=== PATIENT | female | born 1930 | race Hispanic/Latino ===

== ENCOUNTER 2017-02-21 19:10 | Inpatient (IN) | payer MEDICARE ==
[2017-02-21] MEDS ORDERED: DUONEB *Not for PRN Use IH ONE (20:31)
[2017-02-21] MEDS ORDERED: TESSALON PERLES PO ONE (20:31)
--- NOTE | 2017-02-21 20:37 | Emergency Department Report ---
HPI - General Chief Complaint: Upper Respiratory Infection Time Seen by Provider: 02/21/17 20:17 - HPI HPI: This is a 87-year-old female who presents to the emergency department via EMS from home with complaint of a cough and some hemoptysis. The patient says that she had a history of a productive cough last week that resolved on its own. However starting yesterday she began having a productive cough as well and today she says she coughed up a blood clot. She says she is unable to stop coughing. She denies any chest pain, nausea, vomiting or fever. She has not taken anything for her symptoms prior to presentation. Her primary care doctor is Dr. Wild and she has not seen him regarding her symptoms. She has a past medical history of congestive heart failure, hypertension, coronary artery disease, chronic kidney disease, hyperlipidemia, anemia. She does not take any blood thinners but is on Plavix. She is a former smoker having quit about 25 years ago. No recent travel or sick contacts at home. She currently lives in a snf home. ED Past Medical Hx - Past Medical History Previous Medical History?: Yes Hx Hypertension: Yes Hx Congestive Heart Failure: Yes Hx Renal Disease: Yes Additional medical history: Idiopathic Osteoporosis, Abdominal Aortic aneurysm, Anxity, CAD, Gouty arthropathy, acid reflux, cardiac murmur - Social History Smoking Status: Never Smoker - Medications Home Medications: Home Medications Medication Instructions Recorded Confirmed Last Taken Type Alendronate Sodium 35 mg PO 7XD 02/22/17 02/22/17 02/21/17 History Allopurinol [Zyloprim] 300 mg PO QDAY 02/22/17 02/22/17 02/21/17 History Carvedilol [Coreg] 6.25 mg PO BID 02/22/17 02/22/17 02/21/17 History Clopidogrel Bisulfate [Plavix] 75 mg PO DAILY 02/22/17 02/22/17 02/21/17 History Cyanocobalamin [Vitamin B-12] 1,000 mcg IM QMONTH 02/22/17 02/22/17 02/21/17 History Ferrous Gluconate [Fergon 240 MG 240 mg PO BID 02/22/17 02/22/17 02/21/17 History tab] Furosemide [Lasix] 20 mg PO QDAY 02/22/17 02/22/17 02/21/17 History Ipratropium/Albuterol Sulfate 20 - 100 mcg IH QID 02/22/17 02/22/17 02/21/17 History [Combivent Respimat Inhal [place]] Ipratropium/Albuterol Sulfate 20 - 100 mcg IH QID 02/22/17 02/22/17 02/21/17 History [Combivent Respimat] Lovastatin [Altoprev] 20 mg PO QPM 02/22/17 02/22/17 02/21/17 History Pantoprazole Sodium 40 mg PO PRN 02/22/17 02/22/17 02/21/17 History Polyethylene Glycol 600 300 tab PO DAILY 02/22/17 02/22/17 02/21/17 History ED Review of Systems ROS: Stated complaint: CHEST CONGESTION Other details as noted in HPI Comment: All other systems reviewed and negative Constitutional: denies: chills, fever Eyes: denies: eye pain, eye discharge, vision change ENT: denies: ear pain, throat pain Respiratory: cough, shortness of breath, other (hemoptysis) Cardiovascular: denies: palpitations, edema Gastrointestinal: denies: abdominal pain, nausea, diarrhea Genitourinary: denies: urgency, dysuria, discharge Musculoskeletal: denies: back pain, joint swelling, arthralgia Skin: denies: rash, lesions Neurological: denies: headache, weakness, paresthesias Physical Exam - Physical Exam Vital Signs: Vital Signs 02/21/17 02/21/17 19:56 20:06 Temperature 97.4 F L Pulse Rate 73 Respiratory 18 18 Rate Blood Pressure 175/83 [Left] O2 Sat by Pulse 98 98 Oximetry Physical Exam: GENERAL: The patient is well-developed well-nourished. HEENT: Normocephalic. Atraumatic. Extraocular motions are intact. Patient has moist mucous membranes. Pupils equal reactive to light bilaterally. NECK: Supple. Trachea is midline. CHEST/LUNGS: Coarse breath sounds throughout the chest that is worse on the right. There is a productive sounding cough that is wet and can be heard coming out of her mouth. There is tachypnea but no accessory muscle use. There is no respiratory distress noted. HEART/CARDIOVASCULAR: Regular. There is no tachycardia. There is no gallop rub or murmur. ABDOMEN: Abdomen is soft, nontender. Patient has normal bowel sounds. There is no abdominal distention. SKIN: Skin is warm and dry. NEURO: The patient is awake, alert. The patient is cooperative. The patient has no focal neurologic deficits. The patient has normal speech. MUSCULOSKELETAL: There is no tenderness or deformity. There is no limitation range of motion. There is no evidence of acute injury. ED Course Vital Signs 02/21/17 02/21/17 19:56 20:06 Temperature 97.4 F L Pulse Rate 73 Respiratory 18 18 Rate Blood Pressure 175/83 [Left] O2 Sat by Pulse 98 98 Oximetry ED Medical Decision Making - Lab Data Result diagrams: 02/21/17 20:44 02/21/17 20:44 - EKG Data -: EKG Interpreted by Me EKG shows normal: sinus rhythm, axis, intervals (left axis deviation), QRS complexes (Q waves to the septal leads), ST-T waves (nonspecific ST-T waves) Rate: normal - EKG Data When compared to previous EKG there are: previous EKG unavailable Interpretation: other (sinus rhythm, left axis deviation, Q waves to the septal leads) - Radiology Data Radiology results: report reviewed, image reviewed interpreted by me: Chest x-ray shows a moderate right-sided pleural effusion. No obvious pneumonia or pneumothorax. PROCEDURE: CT CHEST WO CON TECHNIQUE: Computerized axial tomography of the chest was performed without contrast material. This study is performed without intravenous contrast and the sensitivity for pathology, including neoplasms, adenopathy, abscess, pulmonary embolism and aortic dissection, is reduced. HISTORY: SOB COMPARISON: No prior studies are available for comparison. TECHNICAL QUALITY: Satisfactory. FINDINGS: Moderate right pleural effusion is seen with small left pleural effusion. Probable compressive atelectasis is seen in the right lower lung. Central obstructing lesion cannot be excluded on this unenhanced exam. There are multiple small nodules seen in the left and right. These are probable metastases. A small nodules only measure up to 7 millimeters in size. Malignant lymphadenopathy is seen with multiple increased lymph nodes seen. In the right paratracheal region there is a 2.2 x 1.5 cm lymph node which may be the largest. Tiny pericardial effusion is seen. Heart and thoracic aorta are normal in size. Probable vascular calcifications are seen in the kidneys. There is abnormal retroperitoneal density seen near the region of the portal confluence. An infiltrating malignancy in this area is likely and involvement of the portal venous system may be present. Malignant appearing lymphadenopathy is suspected in the retroperitoneum. There may be a small mass in the left hepatic lobe measuring 1 cm. Mid to distal abdominal aorta is dilated up to 3.4 cm in diameter. Possible mild changes of avascular necrosis are seen in the right humeral head. There is sclerosis of the T3 vertebral body which is worrisome for possible metastatic disease. IMPRESSION: Moderate right pleural effusion is seen with associated atelectasis. Central obstructing malignancy may be present. Multiple small nodules are seen in both lungs that are suspicious for metastatic disease. Malignant appearing lymphadenopathy is seen in the mediastinum. Malignant appearing lymphadenopathy and possible mass are seen in the retroperitoneum and mary hepatitis region. These areas are not well evaluated on this unenhanced study and should be further evaluated with contrast-enhanced CT or MRI. Invasion of the portal venous system is not excluded. There may be a small mass in the left hepatic lobe. Possible sclerotic metastasis is seen within the T3 vertebral body. Correlation with nuclear medicine bone scan is recommended. Ventilation/perfusion scan is a low probability for a pulmonary embolism. - Medical Decision Making 87-year-old female presents with some productive cough. Chest x-ray shows a moderate sized right-sided pleural effusion. Labs show a elevated d-dimer so a VQ scan was done secondary to some renal insufficiency and it was low probability for pulmonary embolism. However a CT of the chest without contrast was done that showed a significant amount of lymphadenopathy, a moderate right sized pleural effusion and some lesions in the liver that are all concerning for a malignant and/or cancerous process. Patient will be admitted to the hospital for further evaluation and treatment has been accepted for admission by the hospitalist, Dr. Diaz. - Differential Diagnosis malignancy, pneumonia, CHF, [place] Critical Care Time: No Critical care attestation.: If time is entered above; I have spent that time in minutes in the direct care of this critically ill patient, excluding procedure time. ED Disposition Clinical Impression: Pleural effusion, right, Lymphadenopathy, thoracic, Pulmonary nodules Dyspnea Qualifiers: Dyspnea type: shortness of breath Qualified Code(s): R06.02 - Shortness of breath Disposition: OP ADMIT IP TO THIS HOSP Is pt being admited?: Yes Condition: Stable Referrals: PRIMARY CARE, [Primary Care Provider] - 3-5 Days Time of Disposition: 02:32
[2017-02-21 21:05] LABS: Hematocrit 26.8 % (30.3-42.9); Hemoglobin 8.9 gm/dl (10.1-14.3); Mean Corpuscular HGB Conc 33 % (30-34); Mean Corpuscular Hemoglobin 33 pg (28-32); Mean Corpuscular Volume 99 fl (79-97); Platelet Count 191 K/mm3 (140-440); Red Blood Count 2.71 M/mm3 (3.65-5.03); Red Cell Distribution Width 17.7 % (13.2-15.2); White Blood Count 8.9 K/mm3 (4.5-11.0)
[2017-02-21 21:14] LABS: INR 1.03 (0.87-1.13)
[2017-02-21 21:15] LABS: BUN/Creatinine Ratio 13.07; Calcium 9.2 mg/dL (8.4-10.2); Chloride 100.7 mmol/L (98-107); Partial Thromboplastin Time 30.9 Sec. (24.2-36.6); Potassium 4.3 mmol/L (3.6-5.0)
[2017-02-21 22:18] LABS: Basophils % (Manual) 0 % (0.0-1.8); Blastocytes % (Manual) 0 %
[2017-02-21 22:19] LABS: Anisocytosis 1+; Diff Status Complete; Elliptocytes 1+; Platelet Estimate Consistent w Auto
--- NOTE | 2017-02-21 23:00 | Cat Scan Report ---
FINAL REPORT PROCEDURE: CT CHEST WO CON TECHNIQUE: Computerized axial tomography of the chest was performed without contrast material. This study is performed without intravenous contrast and the sensitivity for pathology, including neoplasms, adenopathy, abscess, pulmonary embolism and aortic dissection, is reduced. HISTORY: SOB COMPARISON: No prior studies are available for comparison. TECHNICAL QUALITY: Satisfactory. FINDINGS: Moderate right pleural effusion is seen with small left pleural effusion. Probable compressive atelectasis is seen in the right lower lung. Central obstructing lesion cannot be excluded on this unenhanced exam. There are multiple small nodules seen in the left and right. These are probable metastases. A small nodules only measure up to 7 millimeters in size. Malignant lymphadenopathy is seen with multiple increased lymph nodes seen. In the right paratracheal region there is a 2.2 x 1.5 cm lymph node which may be the largest. Tiny pericardial effusion is seen. Heart and thoracic aorta are normal in size. Probable vascular calcifications are seen in the kidneys. There is abnormal retroperitoneal density seen near the region of the portal confluence. An infiltrating malignancy in this area is likely and involvement of the portal venous system may be present. Malignant appearing lymphadenopathy is suspected in the retroperitoneum. There may be a small mass in the left hepatic lobe measuring 1 cm. Mid to distal abdominal aorta is dilated up to 3.4 cm in diameter. Possible mild changes of avascular necrosis are seen in the right humeral head. There is sclerosis of the T3 vertebral body which is worrisome for possible metastatic disease. IMPRESSION: Moderate right pleural effusion is seen with associated atelectasis. Central obstructing malignancy may be present. Multiple small nodules are seen in both lungs that are suspicious for metastatic disease. Malignant appearing lymphadenopathy is seen in the mediastinum. Malignant appearing lymphadenopathy and possible mass are seen in the retroperitoneum and mary hepatitis region. These areas are not well evaluated on this unenhanced study and should be further evaluated with contrast-enhanced CT or MRI. Invasion of the portal venous system is not excluded. There may be a small mass in the left hepatic lobe. Possible sclerotic metastasis is seen within the T3 vertebral body. Correlation with nuclear medicine bone scan is recommended.
--- NOTE | 2017-02-22 00:48 | Nuclear Medicine Report ---
FINAL REPORT PROCEDURE: NM LUNG SCAN PERF/VENT TECHNIQUE: 5.8 mCi Tc-99m MAA was injected IV for pulmonary perfusion imaging in multiple projections. Seventeen mCi Xenon 133 gas was inhaled for pulmonary ventilation imaging in multiple projections. Injection site: RIGHT antecubital fossa. CPT 21250 HISTORY: SOB, elevated dimer COMPARISON: Chest CT 02/21/2017 FINDINGS: Perfusion: There is diminished perfusion in the inferior right lung. This does correspond to an area of atelectasis and effusion in the right lung. Mild diminished activity in the posterior left lung. Findings consistent with the findings on the chest imaging.. Ventilation: Slightly diminished ventilation to the right lung.. The findings are matched and correlate to the patient's chest imaging. IMPRESSION: Low probability of pulmonary embolus.
[2017-02-22] MEDS ORDERED: ZOFRAN IV PRN (02:46)
[2017-02-22] MEDS ORDERED: DULCOLAX PR PRN (02:46)
--- NOTE | 2017-02-22 02:50 | History and Physical Report ---
History of Present Illness Date of examination: 02/22/17 History of present illness: 87-year-old woman with multiple medical problems including hypertension, CHF, chronic kidney disease, osteoporosis, coronary artery disease, gout, GERD, hyperlipidemia, history of breast cancer comes emergency room today with complaints of shortness of breath 1 week. Also complaining of orthopnea. Patient states that she coughed up blood and sputum 2 Review Of Systems: Constitutional: no fever, chills, weight loss Ears, eyes, nose, mouth and throat: no nasal congestion, no nasal discharge, no sinus pressure, blurry vision, diplopia Neck: No neck pain or rigidity. Cardiovascular: chest pain, palpitations Respiratory: No wheezing Gastrointestinal: abdominal pain, hematochezia Genitourinary : no dysuria, frequency , hematuria Musculoskeletal: no joint swelling or muscle ache Integumentary: no rash, no pruritis Neurological: no parathesias, focal weakness Endocrine: no cold or heat intolerance, no polyuria or polydipsia Hematologic/Lymphatic: no easy bruising, no easy bleeding, no gland swelling Allergic/Immunologic: no urticaria, no angioedema. PAST MEDICAL HISTORY: hypertension, CHF, chronic kidney disease, osteoporosis, coronary artery disease, gout, GERD, hyperlipidemia, history of breast cancer PAST SURGICAL HISTORY: Lumpectomy, tonsillectomy FAMILY HISTORY: Hypertension SOCIAL HISTORY: Quit alcohol, tobacco years ago, no drug Medications and Allergies Allergies Allergy/AdvReac Type Severity Reaction Status Date / Time No Known Allergies Allergy Verified 02/22/17 02:57 Home Medications Medication Instructions Recorded Confirmed Last Taken Type Alendronate Sodium 35 mg PO 7XD 02/22/17 02/22/17 02/21/17 History Allopurinol [Zyloprim] 300 mg PO QDAY 02/22/17 02/22/17 02/21/17 History Carvedilol [Coreg] 6.25 mg PO BID 02/22/17 02/22/17 02/21/17 History Clopidogrel Bisulfate [Plavix] 75 mg PO DAILY 02/22/17 02/22/17 02/21/17 History Cyanocobalamin [Vitamin B-12] 1,000 mcg IM QMONTH 02/22/17 02/22/17 02/21/17 History Ferrous Gluconate [Fergon 240 MG 240 mg PO BID 02/22/17 02/22/17 02/21/17 History tab] Furosemide [Lasix] 20 mg PO QDAY 02/22/17 02/22/17 02/21/17 History Ipratropium/Albuterol Sulfate 20 - 100 mcg IH QID 02/22/17 02/22/17 02/21/17 History [Combivent Respimat Inhal [place]] Ipratropium/Albuterol Sulfate 20 - 100 mcg IH QID 02/22/17 02/22/17 02/21/17 History [Combivent Respimat] Lovastatin [Altoprev] 20 mg PO QPM 02/22/17 02/22/17 02/21/17 History Pantoprazole Sodium 40 mg PO PRN 02/22/17 02/22/17 02/21/17 History Polyethylene Glycol 600 300 tab PO DAILY 02/22/17 02/22/17 02/21/17 History Active Meds: Active Medications Acetaminophen (Tylenol) 650 mg PO Q4H PRN PRN Reason: Pain MILD(1-3)/Fever >100.5/HOYOS Bisacodyl (Dulcolax) 10 mg MD QDAY PRN PRN Reason: Constipation unrelieved by MOM Magnesium Hydroxide (Milk Of Magnesia) 30 ml PO Q4H PRN PRN Reason: Constipation Ondansetron HCl (Zofran) 4 mg IV Q8H PRN PRN Reason: N/V unrelieved by Reglan Exam - Physical Exam Narrative exam: Gen. appearance: Patient lying in bed, no apparent distress HEENT: Normocephalic, atraumatic, pupils equally round and reactive to light, extraocular movement intact, and no sclericterus,. No JVD or thyromegaly or nodule,neck supple, no carotid bruit ,mucous membranes moist, no exudate or erythema Heart: S1, S2, regular rate and rhythm Lungs: Decreased breath sound on the right, breathing comfortable Abdomen: Positive bowel sounds, nontender, nondistended, no organomegaly Extremity: No edema, cyanosis, clubbing Skin: No rash, nodules, warm, dry Neuro: Oriented 3, cranial nerves II-12 intact, speech is fluent, motor and sensory intact - Constitutional Vitals: Temp Pulse Resp BP Pulse Ox 97.4 F L 76 12 148/65 98 02/21/17 19:56 02/22/17 00:38 02/22/17 00:38 02/22/17 00:38 02/22/17 00:38 Results - Labs CBC & Chem 7: 02/23/17 06:33 02/23/17 06:33 Labs: Abnormal lab results 02/21/17 02/21/17 02/21/17 Range/Units 20:44 20:44 20:44 RBC 2.71 L (3.65-5.03) M/mm3 Hgb 8.9 L (10.1-14.3) gm/dl Hct 26.8 L (30.3-42.9) % MCV 99 H (79-97) fl MCH 33 H (28-32) pg RDW 17.7 H (13.2-15.2) % Lymphocytes % (Manual) 9.0 L (13.4-35.0) % Nucleated RBC % 1.0 H (0.0-0.9) % Lymphocytes # (Manual) 0.8 L (1.2-5.4) K/mm3 D-Dimer (0-234) ng/mlDDU Sodium 136 L (137-145) mmol/L Creatinine 1.3 H (0.7-1.2) mg/dL NT-Pro-B Natriuret Pep 3727 H (0-900) pg/mL 02/21/17 Range/Units 20:44 RBC (3.65-5.03) M/mm3 Hgb (10.1-14.3) gm/dl Hct (30.3-42.9) % MCV (79-97) fl MCH (28-32) pg RDW (13.2-15.2) % Lymphocytes % (Manual) (13.4-35.0) % Nucleated RBC % (0.0-0.9) % Lymphocytes # (Manual) (1.2-5.4) K/mm3 D-Dimer 1308.61 H (0-234) ng/mlDDU Sodium (137-145) mmol/L Creatinine (0.7-1.2) mg/dL NT-Pro-B Natriuret Pep (0-900) pg/mL - Imaging and Cardiology EKG: image reviewed Chest x-ray: image reviewed CT scan - chest: report reviewed Assessment and Plan V/Q negative for pulmonary emboli Assessment Large right pleural effusion, most likely malignant Hypertension CHF, stable Chronic kidney disease Coronary artery disease ,GERD Hyperlipidemia History of breast cancer Plan Admit to medicine Consult pulmonary, continue Lasix continue appropriate outpatient medication, start DVT prophylaxis
[2017-02-22] MEDS ORDERED: PROTONIX PO SCH (03:00)
[2017-02-22 03:52] LABS: Creatine Kinase MB 1.4 ng/mL (0.0-4.0)
[2017-02-22 03:53] LABS: Creatine Kinase 20 units/L (30-135)
--- NOTE | 2017-02-22 04:16 | Cat Scan Report ---
FINAL REPORT PROCEDURE: CT ABDOMEN PELVIS WO CON TECHNIQUE: Computerized axial tomography of the abdomen and pelvis was performed without intravenous contrast. This study is performed without intravascular contrast material and its sensitivity for abdominal and pelvic pathology, including neoplasms, inflammation, abscess, free fluid, thrombosis, arterial dissection and infarction, is reduced compared with a contrast enhanced study. HISTORY: prev chest ct lymphadenopathy and poss mass in mary hepatitis r COMPARISON: No prior studies are available for comparison. FINDINGS: Liver: The size of the liver is normal. There is dilatation of the central biliary ductal system. Prominence of lymph nodes in the mary hepatis is noted. There are few areas of hypoattenuation in the right and left lobe of the liver, these measure less than 1 centimeter. Small cysts are possible. Metastatic change is also within the differential.. Spleen: Normal size and attenuation. Gallbladder and biliary system: The gallbladder is distended. No stones are identified.. Pancreas: Pancreas size and attenuation is normal. Adrenals: Both adrenal glands have a normal appearance. Kidneys: There bilateral global thinning of the renal cortex. No hydronephrosis is seen. No renal stones or masses.. GI tract: The stomach is normal. The small bowel has a normal appearance. The colon is normal. The appendix region is normal.. Lymph nodes and mesentery: There are multiple scattered lymph nodes identified throughout the abdomen extending of the pelvis. Minimal fluid identified in the upper abdomen.. Vasculature: Moderate atherosclerosis of the aorta and all branching vessels. There is slight infrarenal aortic aneurysm measuring up to 3.2 centimeters.. Bladder: Normal. Reproductive organs: Normal. Peritoneum: Minimal ascites is identified.. Musculoskeletal structures: Moderate degenerative changes of the lumbar spine.. Other: There is a diffuse soft tissue anasarca.. IMPRESSION: There is some dilatation of the central biliary ductal system within the liver. There are a few prominent lymph nodes are noted in the upper abdomen. Mild ascites is seen. There are scattered lymph nodes identified throughout the abdomen and pelvis. Underlying malignancy is not excluded. Mild ascites is noted. Diffuse soft tissue anasarca is identified. There is no evidence of intestinal or urinary tract obstruction. No ileus or enteritis..
[2017-02-22] MEDS ORDERED: APRESOLINE IV PRN (09:00)
[2017-02-22] MEDS: ZYLOPRIM PO SCH (09:52)
[2017-02-22] MEDS: LASIX PO SCH (09:52)
[2017-02-22] MEDS: COREG PO SCH ×2 (09:52→21:32)
[2017-02-22] MEDS ORDERED: FERROUS GLUCONATE 240 MG PO SCH (10:00)
[2017-02-22] MEDS ORDERED: POLYETHYLENE GLYCOL PO SCH (10:00)
[2017-02-22 10:43] LABS: Creatine Kinase MB 1.8 ng/mL (0.0-4.0)
[2017-02-22 10:44] LABS: Creatine Kinase 28 units/L (30-135)
--- NOTE | 2017-02-22 12:29 | Event Note ---
Date: 02/22/17 Patient admitted this morning for malignant pleural effusion, hemoptysis patient denies previous history of breast cancer. CT showed pleural effusion and lung masses suspicious for malignancy. Pulmonary and oncology consulted. History, physical and labs reviewed. Patient H&P is from this morning so she doesn't need progress note.
--- NOTE | 2017-02-22 12:39 | Consultation ---
History of Present Illness Consult date: 02/22/17 Requesting physician: CARMEN WEBSTER Reason for consult: pleural effusion History of present illness: Very pleasant 87 y/o female who presented to the ED with cough, hemoptysis and shortness of breath. Prior history of breast CA. CT of chest was done that shows extensive lymphadenopathy and possible metastatic disease. Patient also has bilateral pleural effusions, right > left. Today she states that she feels better but still has cough. Past History Past Medical History: other (breast CA, CHF) Past Surgical History: Other Social history: no significant social history Medications and Allergies Allergies Allergy/AdvReac Type Severity Reaction Status Date / Time No Known Allergies Allergy Verified 02/22/17 02:57 Home Medications Medication Instructions Recorded Confirmed Last Taken Type Alendronate Sodium 35 mg PO 7XD 02/22/17 02/22/17 02/21/17 History Allopurinol [Zyloprim] 300 mg PO QDAY 02/22/17 02/22/17 02/21/17 History Carvedilol [Coreg] 6.25 mg PO BID 02/22/17 02/22/17 02/21/17 History Clopidogrel Bisulfate [Plavix] 75 mg PO DAILY 02/22/17 02/22/17 02/21/17 History Cyanocobalamin [Vitamin B-12] 1,000 mcg IM QMONTH 02/22/17 02/22/17 02/21/17 History Ferrous Gluconate [Fergon 240 MG 240 mg PO BID 02/22/17 02/22/17 02/21/17 History tab] Furosemide [Lasix] 20 mg PO QDAY 02/22/17 02/22/17 02/21/17 History Ipratropium/Albuterol Sulfate 20 - 100 mcg IH QID 02/22/17 02/22/17 02/21/17 History [Combivent Respimat Inhal [place]] Ipratropium/Albuterol Sulfate 20 - 100 mcg IH QID 02/22/17 02/22/17 02/21/17 History [Combivent Respimat] Lovastatin [Altoprev] 20 mg PO QPM 02/22/17 02/22/17 02/21/17 History Pantoprazole Sodium 40 mg PO PRN 02/22/17 02/22/17 02/21/17 History Polyethylene Glycol 600 300 tab PO DAILY 02/22/17 02/22/17 02/21/17 History Active Meds: Active Medications Acetaminophen (Tylenol) 650 mg PO Q4H PRN PRN Reason: Pain MILD(1-3)/Fever >100.5/[place] Allopurinol (Zyloprim) 300 mg PO QDAY [facility] Last Admin: 02/22/17 09:52 Dose: 300 mg Bisacodyl (Dulcolax) 10 mg [place] QDAY PRN PRN Reason: Constipation unrelieved by MOM Carvedilol (Coreg) 6.25 mg PO BID [facility] Last Admin: 02/22/17 09:52 Dose: 6.25 mg Furosemide (Lasix) 20 mg PO QDAY [facility] Last Admin: 02/22/17 09:52 Dose: 20 mg Hydralazine HCl (Apresoline) 10 mg IV Q4HR PRN PRN Reason: Hypertension Magnesium Hydroxide (Milk Of Magnesia) 30 ml PO Q4H PRN PRN Reason: Constipation Miscellaneous Medication (Ferrous Gluconate [Fergon 240 Mg Tab]) 240 mg PO BID [facility] Miscellaneous Medication (Polyethylene Glycol 600 [Polyethylene Glycol 600]) 300 tab PO DAILY [facility] Ondansetron HCl (Zofran) 4 mg IV Q8H PRN PRN Reason: N/V unrelieved by Reglan Pantoprazole Sodium (Protonix) 40 mg PO DAILY PRN PRN Reason: Acid reflux Simvastatin (Zocor) 10 mg PO QHS [facility] Review of Systems All systems: negative Physical Examination Vital signs: Vital Signs Temp Pulse Resp BP Pulse Ox 97.4 F L 73 18 175/83 98 02/21/17 19:56 02/21/17 19:56 02/21/17 19:56 02/21/17 19:56 02/21/17 19:56 General appearance: no acute distress, alert Eyes: non-icteric ENT: oropharynx moist Effort: normal Ascultation: Bilateral: diminished breath sounds Results - Laboratory Findings CBC and BMP: 02/21/17 20:44 02/21/17 20:44 PT/INR, D-dimer PT 14.0 Sec. (12.2-14.9) 02/21/17 20:44 INR 1.03 (0.87-1.13) 02/21/17 20:44 D-Dimer 1308.61 ng/mlDDU (0-234) H 02/21/17 20:44 Abnormal lab findings: Abnormal Labs 02/22/17 02/22/17 03:05 08:55 Total Creatine Kinase 20 L 28 L CK-MB (CK-2) Rel Index 7.0 H 6.4 H - Diagnostic Findings CT scan - chest: report reviewed (unable to see images in [employer] currently) Assessment and Plan 87 y/o with bilateral pleural effusions. 1. Discussed the need for fluid removal at bedside for diagnosis. Patient wishes to think about it which is very reasonable. Will order coags and discuss again with patient tomorrow. If willing I can perform at the bedside.
[2017-02-22] MEDS ORDERED: NON-FORMULARY (Lovastatin [Altoprev] 20 MG) PO SCH (18:00)
[2017-02-22] MEDS: ZOCOR PO SCH (21:33)
[2017-02-23 08:07] LABS: Basophils % (Auto) 2.9 % (0.0-1.8); Eosinophils % (Auto) 7.3 % (0.0-4.3); Hematocrit 25.1 % (30.3-42.9); Hemoglobin 8.2 gm/dl (10.1-14.3); Mean Corpuscular HGB Conc 33 % (30-34); Mean Corpuscular Hemoglobin 32 pg (28-32); Mean Corpuscular Volume 98 fl (79-97); Platelet Count 156 K/mm3 (140-440); Red Blood Count 2.56 M/mm3 (3.65-5.03); Red Cell Distribution Width 17.1 % (13.2-15.2); White Blood Count 8.5 K/mm3 (4.5-11.0)
[2017-02-23 08:23] LABS: BUN/Creatinine Ratio 12.3; Chloride 101.9 mmol/L (98-107); Potassium 4.3 mmol/L (3.6-5.0)
[2017-02-23] MEDS: ZYLOPRIM PO SCH (09:17)
[2017-02-23] MEDS: COREG PO SCH ×2 (09:17→21:36)
[2017-02-23] MEDS: LASIX PO SCH (09:18)
--- NOTE | 2017-02-23 10:33 | Progress Note ---
Assessment and Plan Assessment and plan: Right pleural effusion. For possible thoracentesis and pleural fluid analysis, to rule out malignancy Multiple pulmonary nodules bilaterally, suspicious for metastases Coronary artery disease. This is stable. No chest pain Chronic CHF. On Lasix History of breast cancer. Details unclear. Hyperlipidemia Full CODE STATUS DVT prophylaxis. Not put on anticoagulation because of anticipated thoracentesis History Interval history: Shortness of breath cough Hospitalist Physical - Physical exam Narrative exam: Gen appearance :Not in acute distress, HEENT: Normocephalic, atraumatic Neck: Supple, no JVD Lungs: Decreased breath sounds right lower lung field, no crackles, or wheezes. Heart: S1 and S2 regular, no murmurs, no gallops,no rubs Abdomen : Soft, non-tender, non-distended, normal bowel sounds Extremities :No edema, no clubbing or cyanosis Neuro: Awake, alert, oriented, normal speech, no focal neurological signs Psych: normal mood. - Constitutional Vitals: Temp Pulse Resp BP Pulse Ox 97.3 F L 74 18 162/74 97 02/23/17 08:00 02/23/17 08:00 02/23/17 09:07 02/23/17 09:17 02/23/17 08:00 Results - Labs CBC & Chem 7: 02/23/17 06:33 02/23/17 06:33 Labs: Laboratory Last Values WBC 8.5 K/mm3 (4.5-11.0) 02/23/17 06:33 RBC 2.56 M/mm3 (3.65-5.03) L 02/23/17 06:33 Hgb 8.2 gm/dl (10.1-14.3) L 02/23/17 06:33 Hct 25.1 % (30.3-42.9) L 02/23/17 06:33 MCV 98 fl (79-97) H 02/23/17 06:33 MCH 32 pg (28-32) 02/23/17 06:33 MCHC 33 % (30-34) 02/23/17 06:33 RDW 17.1 % (13.2-15.2) H 02/23/17 06:33 Plt Count 156 K/mm3 (140-440) 02/23/17 06:33 Lymph % (Auto) 17.1 % (13.4-35.0) 02/23/17 06:33 [place] % (Auto) 11.7 % (0.0-7.3) H 02/23/17 06:33 Eos % (Auto) 7.3 % (0.0-4.3) H 02/23/17 06:33 Baso % (Auto) 2.9 % (0.0-1.8) H 02/23/17 06:33 Lymph # 1.4 K/mm3 (1.2-5.4) 02/23/17 06:33 [place] # 1.0 K/mm3 (0.0-0.8) H 02/23/17 06:33 Eos # 0.6 K/mm3 (0.0-0.4) H 02/23/17 06:33 Baso # 0.2 K/mm3 (0.0-0.1) H 02/23/17 06:33 Add Manual Diff Complete 02/21/17 20:44 Total Counted 100 02/21/17 20:44 Seg Neutrophils % 61.0 % (40.0-70.0) 02/23/17 06:33 Seg Neuts % (Manual) 53.0 % (40.0-70.0) 02/21/17 20:44 Band Neutrophils % 31.0 % 02/21/17 20:44 Lymphocytes % (Manual) 9.0 % (13.4-35.0) L 02/21/17 20:44 Reactive Lymphs % (Man) 0 % 02/21/17 20:44 Monocytes % (Manual) 3.0 % (0.0-7.3) 02/21/17 20:44 Eosinophils % (Manual) 3.0 % (0.0-4.3) 02/21/17 20:44 Basophils % (Manual) 0 % (0.0-1.8) 02/21/17 20:44 Metamyelocytes % 0 % 02/21/17 20:44 Myelocytes % 0 % 02/21/17 20:44 Promyelocytes % 1.0 % 02/21/17 20:44 Blast Cells % 0 % 02/21/17 20:44 Nucleated RBC % 1.0 % (0.0-0.9) H 02/21/17 20:44 Seg Neutrophils # 5.2 K/mm3 (1.8-7.7) 02/23/17 06:33 Seg Neutrophils # Man 4.7 K/mm3 (1.8-7.7) 02/21/17 20:44 Band Neutrophils # 2.8 K/mm3 02/21/17 20:44 Lymphocytes # (Manual) 0.8 K/mm3 (1.2-5.4) L 02/21/17 20:44 Abs React Lymphs (Man) 0.0 K/mm3 02/21/17 20:44 Monocytes # (Manual) 0.3 K/mm3 (0.0-0.8) 02/21/17 20:44 Eosinophils # (Manual) 0.3 K/mm3 (0.0-0.4) 02/21/17 20:44 Basophils # (Manual) 0.0 K/mm3 (0.0-0.1) 02/21/17 20:44 Metamyelocytes # 0.0 K/mm3 02/21/17 20:44 Myelocytes # 0.0 K/mm3 02/21/17 20:44 Promyelocytes # 0.1 K/mm3 02/21/17 20:44 Blast Cells # 0.0 K/mm3 02/21/17 20:44 WBC Morphology Not Reportable 02/21/17 20:44 Hypersegmented Neuts Not Reportable 02/21/17 20:44 Hyposegmented Neuts Not Reportable 02/21/17 20:44 Hypogranular Neuts Not Reportable 02/21/17 20:44 Smudge Cells Not Reportable 02/21/17 20:44 Toxic Granulation Not Reportable 02/21/17 20:44 Toxic Vacuolation Not Reportable 02/21/17 20:44 Dohle Bodies Not Reportable 02/21/17 20:44 Pelger-Huet Anomaly Not Reportable 02/21/17 20:44 Dilma Rods Not Reportable 02/21/17 20:44 Platelet Estimate Consistent w auto 02/21/17 20:44 Clumped Platelets Not Reportable 02/21/17 20:44 Plt Clumps, EDTA Not Reportable 02/21/17 20:44 Large Platelets Not Reportable 02/21/17 20:44 Giant Platelets Not Reportable 02/21/17 20:44 Platelet Satelliting Not Reportable 02/21/17 20:44 Plt Morphology Comment Not Reportable 02/21/17 20:44 RBC Morphology Not Reportable 02/21/17 20:44 Dimorphic RBCs Not Reportable 02/21/17 20:44 Polychromasia Not Reportable 02/21/17 20:44 Hypochromasia Not Reportable 02/21/17 20:44 Poikilocytosis Not Reportable 02/21/17 20:44 Anisocytosis 1+ 02/21/17 20:44 Microcytosis Not Reportable 02/21/17 20:44 Macrocytosis Not Reportable 02/21/17 20:44 Spherocytes Not Reportable 02/21/17 20:44 Pappenheimer Bodies Not Reportable 02/21/17 20:44 Sickle Cells Not Reportable 02/21/17 20:44 Target Cells Not Reportable 02/21/17 20:44 Tear Drop Cells Not Reportable 02/21/17 20:44 Ovalocytes Not Reportable 02/21/17 20:44 Helmet Cells Not Reportable 02/21/17 20:44 Kitchen-Platinum Bodies Not Reportable 02/21/17 20:44 [place] Rings Not Reportable 02/21/17 20:44 [place] Cells Not Reportable 02/21/17 20:44 Bite Cells Not Reportable 02/21/17 20:44 Crenated Cell Not Reportable 02/21/17 20:44 Elliptocytes 1+ 02/21/17 20:44 Acanthocytes (Spur) Not Reportable 02/21/17 20:44 Rouleaux Not Reportable 02/21/17 20:44 Hemoglobin C Crystals Not Reportable 02/21/17 20:44 Schistocytes Not Reportable 02/21/17 20:44 Malaria parasites Not Reportable 02/21/17 20:44 [place] Bodies Not Reportable 02/21/17 20:44 Hem Pathologist Commnt No 02/21/17 20:44 PT 14.0 Sec. (12.2-14.9) 02/21/17 20:44 INR 1.03 (0.87-1.13) 02/21/17 20:44 APTT 30.9 Sec. (24.2-36.6) 02/21/17 20:44 D-Dimer 1308.61 ng/mlDDU (0-234) H 02/21/17 20:44 Sodium 137 mmol/L (137-145) 02/23/17 06:33 Potassium 4.3 mmol/L (3.6-5.0) 02/23/17 06:33 Chloride 101.9 mmol/L (98-107) 02/23/17 06:33 Carbon Dioxide 23 mmol/L (22-30) 02/23/17 06:33 Anion Gap 16 mmol/L 02/23/17 06:33 BUN 16 mg/dL (7-17) 02/23/17 06:33 Creatinine 1.3 mg/dL (0.7-1.2) H 02/23/17 06:33 Estimated GFR 39 ml/min 02/23/17 06:33 BUN/Creatinine Ratio 12.30 % 02/23/17 06:33 Glucose 85 mg/dL (65-100) 02/23/17 06:33 Calcium 9.0 mg/dL (8.4-10.2) 02/23/17 06:33 Total Creatine Kinase 28 units/L (30-135) L 02/22/17 08:55 CK-MB (CK-2) 1.8 ng/mL (0.0-4.0) 02/22/17 08:55 CK-MB (CK-2) Rel Index 6.4 (0-4) H 02/22/17 08:55 Troponin T < 0.010 ng/mL (0.00-0.029) 02/22/17 08:55 NT-Pro-B Natriuret Pep 3727 pg/mL (0-900) H 02/21/17 20:44
--- NOTE | 2017-02-23 16:55 | Procedure Note ---
Date of procedure: 02/23/17 Pre-op diagnosis: Pleural effusion Post-op diagnosis: same Procedure: After obtaining informed consent. Patient prepped at the bedside. Using ultrasound guidance fluid was visualized and landmarks measured. After anesthetizing the area, catheter introduced. 1550 cc's of straw colored fluid removed with complication. Catheter removed and CXR ordered to evaluate. I do believe there will still be fluid present. Anesthesia: local Surgeon: TRIPP BAPTISTE Estimated blood loss: none Pathology: list (Sent for cyto to rule out malignancy) Specimen disposition: to lab
--- NOTE | 2017-02-23 16:56 | Progress Note ---
Assessment and Plan 87 y/o with bilateral pleural effusions. 1. Thora today. 2. Send fluid for cytolo, ldh, protein, glucose, afb, fungal and cell count with gram stain 3. Hepatic panel and serum LDH Subjective Date of service: 02/23/17 Interval history: No acute events. Remains stable. Still coughing up blood clots. Wants to do procedure. Objective Vital Signs - 12hr 02/23/17 02/23/17 02/23/17 08:00 09:07 09:17 Temperature 97.3 F L Pulse Rate 74 Respiratory 18 18 Rate Blood Pressure 162/77 162/74 O2 Sat by Pulse 97 Oximetry 02/23/17 02/23/17 10:00 12:00 Temperature 97.3 F L Pulse Rate 60 Respiratory 18 Rate Blood Pressure 115/56 O2 Sat by Pulse 98 97 Oximetry Constitutional: no acute distress, alert Eyes: non-icteric ENT: oropharynx moist Effort: normal Ascultation: Bilateral: diminished breath sounds CBC and BMP: 02/23/17 06:33 02/23/17 06:33 ABG, PT/INR, D-dimer: PT/INR, D-dimer PT 14.0 Sec. (12.2-14.9) 02/21/17 20:44 INR 1.03 (0.87-1.13) 02/21/17 20:44 D-Dimer 1308.61 ng/mlDDU (0-234) H 02/21/17 20:44 Abnormal lab findings: Abnormal Labs 02/22/17 02/22/17 02/23/17 03:05 08:55 06:33 RBC 2.56 L Hgb 8.2 L Hct 25.1 L MCV 98 H RDW 17.1 H [place] % (Auto) 11.7 H Eos % (Auto) 7.3 H Baso % (Auto) 2.9 H [place] # 1.0 H Eos # 0.6 H Baso # 0.2 H Creatinine Total Creatine Kinase 20 L 28 L CK-MB (CK-2) Rel Index 7.0 H 6.4 H 02/23/17 06:33 RBC Hgb Hct MCV RDW [place] % (Auto) Eos % (Auto) Baso % (Auto) [place] # Eos # Baso # Creatinine 1.3 H Total Creatine Kinase CK-MB (CK-2) Rel Index
--- NOTE | 2017-02-23 17:16 | XRay Report ---
FINAL REPORT PROCEDURE: XR CHEST 1V AP TECHNIQUE: Chest radiograph anteroposterior view. CPT 84145 HISTORY: pleural effusion COMPARISON: Chest x-ray and chest CT dated February 21, 2017. FINDINGS: Moderate right pleural effusion is improved from prior study. Small left pleural effusion is now present. Heart is normal in size. Areas of atelectasis are seen in the lower lungs. Probable changes of COPD are seen. IMPRESSION: Improving right pleural effusion is seen. Other chest findings seen on recent CT of the chest are not well seen on x-ray.
[2017-02-23 19:21] LABS: Basophils Body Fluid 0 %; Reactive Lymph Body Fluid 0 %
[2017-02-23 20:32] LABS: Alanine Aminotransferase 7 units/L (7-56); Albumin 3.5 g/dL (3.9-5); Albumin/Globulin Ratio 1.3 %; Alkaline Phosphatase 140 units/L (35-129); Lactate Dehydrogenase 239 units/L (91-180); Total Protein 6.2 g/dL (6.3-8.2)
[2017-02-23 20:45] LABS: Bilirubin,Direct < 0.2 mg/dL (0-0.2); Bilirubin,Indirect 0.1 mg/dL
[2017-02-23] MEDS: ZOCOR PO SCH (21:36)
--- NOTE | 2017-02-24 | Consultation ---
History of Present Illness - Reason for Consult Consult date: 02/23/17 - History of Present Illness patient seen, resting in bed Past History Past Medical History: other (breast CA, CHF) Past Surgical History: Other Social history: no significant social history Medications and Allergies Allergies Allergy/AdvReac Type Severity Reaction Status Date / Time No Known Allergies Allergy Verified 02/22/17 02:57 Home Medications Medication Instructions Recorded Confirmed Last Taken Type Alendronate Sodium 35 mg PO 7XD 02/22/17 02/22/17 02/21/17 History Allopurinol [Zyloprim] 300 mg PO QDAY 02/22/17 02/22/17 02/21/17 History Carvedilol [Coreg] 6.25 mg PO BID 02/22/17 02/22/17 02/21/17 History Clopidogrel Bisulfate [Plavix] 75 mg PO DAILY 02/22/17 02/22/17 02/21/17 History Cyanocobalamin [Vitamin B-12] 1,000 mcg IM QMONTH 02/22/17 02/22/17 02/21/17 History Ferrous Gluconate [Fergon 240 MG 240 mg PO BID 02/22/17 02/22/17 02/21/17 History tab] Furosemide [Lasix] 20 mg PO QDAY 02/22/17 02/22/17 02/21/17 History Ipratropium/Albuterol Sulfate 20 - 100 mcg IH QID 02/22/17 02/22/17 02/21/17 History [Combivent Respimat Inhal [place]] Ipratropium/Albuterol Sulfate 20 - 100 mcg IH QID 02/22/17 02/22/17 02/21/17 History [Combivent Respimat] Lovastatin [Altoprev] 20 mg PO QPM 02/22/17 02/22/17 02/21/17 History Pantoprazole Sodium 40 mg PO PRN 02/22/17 02/22/17 02/21/17 History Polyethylene Glycol 600 300 tab PO DAILY 02/22/17 02/22/17 02/21/17 History Active Meds: Active Medications Acetaminophen (Tylenol) 650 mg PO Q4H PRN PRN Reason: Pain MILD(1-3)/Fever >100.5/HOYOS Allopurinol (Zyloprim) 300 mg PO QDAY [facility] Last Admin: 02/23/17 09:17 Dose: 300 mg Bisacodyl (Dulcolax) 10 mg [place] QDAY PRN PRN Reason: Constipation unrelieved by MOM Carvedilol (Coreg) 6.25 mg PO BID [facility] Last Admin: 02/23/17 21:36 Dose: 6.25 mg Furosemide (Lasix) 20 mg PO QDAY [facility] Last Admin: 02/23/17 09:18 Dose: 20 mg Hydralazine HCl (Apresoline) 10 mg IV Q4HR PRN PRN Reason: Hypertension Magnesium Hydroxide (Milk Of Magnesia) 30 ml PO Q4H PRN PRN Reason: Constipation Miscellaneous Medication (Ferrous Gluconate [Fergon 240 Mg Tab]) 240 mg PO BID [facility] Miscellaneous Medication (Polyethylene Glycol 600 [Polyethylene Glycol 600]) 300 tab PO DAILY [facility] Ondansetron HCl (Zofran) 4 mg IV Q8H PRN PRN Reason: N/V unrelieved by Reglan Pantoprazole Sodium (Protonix) 40 mg PO DAILY PRN PRN Reason: Acid reflux Simvastatin (Zocor) 10 mg PO QHS [facility] Last Admin: 02/23/17 21:36 Dose: 10 mg Exam - Constitutional Vitals: Temp Pulse Resp BP Pulse Ox 98.1 F 75 20 134/60 98 02/23/17 23:46 02/23/17 23:46 02/23/17 23:46 02/23/17 23:46 02/23/17 23:46 Results - Labs CBC & Chem 7: 02/23/17 06:33 02/23/17 06:33 Labs: Abnormal lab results 02/23/17 02/23/17 02/23/17 Range/Units 06:33 06:33 19:11 RBC 2.56 L (3.65-5.03) M/mm3 Hgb 8.2 L (10.1-14.3) gm/dl Hct 25.1 L (30.3-42.9) % MCV 98 H (79-97) fl RDW 17.1 H (13.2-15.2) % [place] % (Auto) 11.7 H (0.0-7.3) % Eos % (Auto) 7.3 H (0.0-4.3) % Baso % (Auto) 2.9 H (0.0-1.8) % [place] # 1.0 H (0.0-0.8) K/mm3 Eos # 0.6 H (0.0-0.4) K/mm3 Baso # 0.2 H (0.0-0.1) K/mm3 Creatinine 1.3 H (0.7-1.2) mg/dL Alkaline Phosphatase 140 H (35-129) units/L Lactate Dehydrogenase 239 H (91-180) units/L Total Protein 6.2 L (6.3-8.2) g/dL Albumin 3.5 L (3.9-5) g/dL
--- NOTE | 2017-02-24 06:24 | Admit Criteria Form ---
Admission Criteria Documentation: PLEURAL EFFUSION Clinical Indications for Admission to Inpatient Care (Place 'X' for any and all applicable criteria): Admission is indicated for ANY ONE of the following (1)(2)(3): [X]I. Pneumonia-related effusion requiring drainage as indicated by 1 or more of the following [A]: [X]a) Large pleural effusion (symptomatic or greater than one-half of hemithorax) [ ]b) Loculated effusion [ ]c) Pleural fluid analysis results, including ANY ONE of the following: [ ]i) Positive Gram stain or culture for bacteria [ ]ii) Pus [ ]iii) pH less than 7.20 [ ]d) Parapneumonic effusion with glucose less than 60 mg/dL (3.33 mmol/L) [ ]II. Inpatient admission required rather than observation care (Also use Pleural Effusion: Observation Care criteria as appropriate) because of 1 or more of the following: [ ]1) Hemodynamic instability [ ]2) Respiratory findings (Tachypnea, dyspnea) that persist despite observation care treatment [ ]3) Hypoxemia or hypercapnia that persists despite observation care treatment [ ]4) Complication of drainage (e.g., pneumothorax) that requires inpatient care [ ]5) Etiology that requires inpatient care (e.g., pulmonary embolism, trauma) [ ]6) Severe pain requiring acute inpatient management [ ]7) Chest tube placement with active evacuation (eg, suction, drainage) [ ]8) Pulmonary artery catheter monitoring [ ]9) Epidural analgesia(7) [ ]10) Immediate inpatient surgery [ ]11) Other condition, treatment, or monitoring requiring inpatient admission [ ]III. Hemothorax [ ]IV. Empyema [ ]V. Pleural effusion with concomitant pneumothorax [ ]. Recurrent or malignant pleural effusion requiring pleurodesis (4) [ ]VII. Respiratory distress Extended stay beyond goal length of stay may be needed for (27)(28): [ ]a) Empyema or complicated parapneumonic effusion (24)(29) [ ]b) Malignant pleural effusion (4) [ ]c) Pleural effusion due to trauma or perforated esophagus [ ]d) Pleural effusion due to pulmonary embolism (30) [ ]e) Clinically significant re-expansion pulmonary edema [ ]f) Hemothorax [ ]g) Renal failure [ ]h) Complications of thoracentesis, thoracostomy tube, or pleural cath. placement [ ]j) Trapped lung (e.g., benign or malignant thickened pleura preventing lung re-expansion) (31) [ ]i) Underlying etiology necessitates ongoing inpatient care (e.g., pneumonia, heart failure, malignancy) The original [facility] [employer] content created by [facility] has been revised. The portions of the content which have been revised are identified through the use of italic text or in bold, and [facility] has neither reviewed nor approved the modified material. All other unmodified content is copyright [facility]. Please see references footnoted in the original [facility] edition 2017 Admission Criteria Met: Yes
--- NOTE | 2017-02-24 12:37 | Progress Note ---
Assessment and Plan Assessment and plan: Right pleural effusion. Had thoracentesis yesterday and pleural fluid sent for analysis, to rule out malignancy. Pathology report pending. Pulmonology following. Multiple pulmonary nodules bilaterally, suspicious for metastases. awaiting path report from pleural fluid. Dr. Buck following. Coronary artery disease. This is stable. No chest pain Chronic CHF. On Lasix History of breast cancer. Hyperlipidemia Full CODE STATUS DVT prophylaxis. Start Heparin subcut. History Interval history: less Shortness of breath cough hemoptysis Hospitalist Physical - Physical exam Narrative exam: Gen appearance :Not in acute distress, HEENT: Normocephalic, atraumatic Neck: Supple, no JVD Lungs: Decreased breath sounds right lower lung field, no crackles, or wheezes. Heart: S1 and S2 regular, no murmurs, no gallops,no rubs Abdomen : Soft, non-tender, non-distended, normal bowel sounds Extremities :No edema, no clubbing or cyanosis Neuro: Awake, alert, oriented, normal speech, no focal neurological signs Psych: normal mood. - Constitutional Vitals: Temp Pulse Resp BP Pulse Ox 98.5 F 78 20 123/57 94 02/24/17 04:08 02/24/17 04:08 02/24/17 04:08 02/24/17 04:08 02/24/17 04:08 Results - Labs CBC & Chem 7: 02/23/17 06:33 02/23/17 06:33 Labs: Laboratory Last Values WBC 8.5 K/mm3 (4.5-11.0) 02/23/17 06:33 RBC 2.56 M/mm3 (3.65-5.03) L 02/23/17 06:33 Hgb 8.2 gm/dl (10.1-14.3) L 02/23/17 06:33 Hct 25.1 % (30.3-42.9) L 02/23/17 06:33 MCV 98 fl (79-97) H 02/23/17 06:33 MCH 32 pg (28-32) 02/23/17 06:33 MCHC 33 % (30-34) 02/23/17 06:33 RDW 17.1 % (13.2-15.2) H 02/23/17 06:33 Plt Count 156 K/mm3 (140-440) 02/23/17 06:33 Lymph % (Auto) 17.1 % (13.4-35.0) 02/23/17 06:33 [place] % (Auto) 11.7 % (0.0-7.3) H 02/23/17 06:33 Eos % (Auto) 7.3 % (0.0-4.3) H 02/23/17 06:33 Baso % (Auto) 2.9 % (0.0-1.8) H 02/23/17 06:33 Lymph # 1.4 K/mm3 (1.2-5.4) 02/23/17 06:33 [place] # 1.0 K/mm3 (0.0-0.8) H 02/23/17 06:33 Eos # 0.6 K/mm3 (0.0-0.4) H 02/23/17 06:33 Baso # 0.2 K/mm3 (0.0-0.1) H 02/23/17 06:33 Add Manual Diff Complete 02/21/17 20:44 Total Counted 100 02/21/17 20:44 Seg Neutrophils % 61.0 % (40.0-70.0) 02/23/17 06:33 Seg Neuts % (Manual) 53.0 % (40.0-70.0) 02/21/17 20:44 Band Neutrophils % 31.0 % 02/21/17 20:44 Lymphocytes % (Manual) 9.0 % (13.4-35.0) L 02/21/17 20:44 Reactive Lymphs % (Man) 0 % 02/21/17 20:44 Monocytes % (Manual) 3.0 % (0.0-7.3) 02/21/17 20:44 Eosinophils % (Manual) 3.0 % (0.0-4.3) 02/21/17 20:44 Basophils % (Manual) 0 % (0.0-1.8) 02/21/17 20:44 Metamyelocytes % 0 % 02/21/17 20:44 Myelocytes % 0 % 02/21/17 20:44 Promyelocytes % 1.0 % 02/21/17 20:44 Blast Cells % 0 % 02/21/17 20:44 Nucleated RBC % 1.0 % (0.0-0.9) H 02/21/17 20:44 Seg Neutrophils # 5.2 K/mm3 (1.8-7.7) 02/23/17 06:33 Seg Neutrophils # Man 4.7 K/mm3 (1.8-7.7) 02/21/17 20:44 Band Neutrophils # 2.8 K/mm3 02/21/17 20:44 Lymphocytes # (Manual) 0.8 K/mm3 (1.2-5.4) L 02/21/17 20:44 Abs React Lymphs (Man) 0.0 K/mm3 02/21/17 20:44 Monocytes # (Manual) 0.3 K/mm3 (0.0-0.8) 02/21/17 20:44 Eosinophils # (Manual) 0.3 K/mm3 (0.0-0.4) 02/21/17 20:44 Basophils # (Manual) 0.0 K/mm3 (0.0-0.1) 02/21/17 20:44 Metamyelocytes # 0.0 K/mm3 02/21/17 20:44 Myelocytes # 0.0 K/mm3 02/21/17 20:44 Promyelocytes # 0.1 K/mm3 02/21/17 20:44 Blast Cells # 0.0 K/mm3 02/21/17 20:44 WBC Morphology Not Reportable 02/21/17 20:44 Hypersegmented Neuts Not Reportable 02/21/17 20:44 Hyposegmented Neuts Not Reportable 02/21/17 20:44 Hypogranular Neuts Not Reportable 02/21/17 20:44 Smudge Cells Not Reportable 02/21/17 20:44 Toxic Granulation Not Reportable 02/21/17 20:44 Toxic Vacuolation Not Reportable 02/21/17 20:44 Dohle Bodies Not Reportable 02/21/17 20:44 Pelger-Huet Anomaly Not Reportable 02/21/17 20:44 Dilma Rods Not Reportable 02/21/17 20:44 Platelet Estimate Consistent w auto 02/21/17 20:44 Clumped Platelets Not Reportable 02/21/17 20:44 Plt Clumps, EDTA Not Reportable 02/21/17 20:44 Large Platelets Not Reportable 02/21/17 20:44 Giant Platelets Not Reportable 02/21/17 20:44 Platelet Satelliting Not Reportable 02/21/17 20:44 Plt Morphology Comment Not Reportable 02/21/17 20:44 RBC Morphology Not Reportable 02/21/17 20:44 Dimorphic RBCs Not Reportable 02/21/17 20:44 Polychromasia Not Reportable 02/21/17 20:44 Hypochromasia Not Reportable 02/21/17 20:44 Poikilocytosis Not Reportable 02/21/17 20:44 Anisocytosis 1+ 02/21/17 20:44 Microcytosis Not Reportable 02/21/17 20:44 Macrocytosis Not Reportable 02/21/17 20:44 Spherocytes Not Reportable 02/21/17 20:44 Pappenheimer Bodies Not Reportable 02/21/17 20:44 Sickle Cells Not Reportable 02/21/17 20:44 Target Cells Not Reportable 02/21/17 20:44 Tear Drop Cells Not Reportable 02/21/17 20:44 Ovalocytes Not Reportable 02/21/17 20:44 Helmet Cells Not Reportable 02/21/17 20:44 [place] Bodies Not Reportable 02/21/17 20:44 [place] Rings Not Reportable 02/21/17 20:44 [place] Cells Not Reportable 02/21/17 20:44 Bite Cells Not Reportable 02/21/17 20:44 Crenated Cell Not Reportable 02/21/17 20:44 Elliptocytes 1+ 02/21/17 20:44 Acanthocytes (Spur) Not Reportable 02/21/17 20:44 Rouleaux Not Reportable 02/21/17 20:44 Hemoglobin C Crystals Not Reportable 02/21/17 20:44 Schistocytes Not Reportable 02/21/17 20:44 Malaria parasites Not Reportable 02/21/17 20:44 [place] Bodies Not Reportable 02/21/17 20:44 Hem Pathologist Commnt No 02/21/17 20:44 PT 14.0 Sec. (12.2-14.9) 02/21/17 20:44 INR 1.03 (0.87-1.13) 02/21/17 20:44 APTT 30.9 Sec. (24.2-36.6) 02/21/17 20:44 D-Dimer 1308.61 ng/mlDDU (0-234) H 02/21/17 20:44 Sodium 137 mmol/L (137-145) 02/23/17 06:33 Potassium 4.3 mmol/L (3.6-5.0) 02/23/17 06:33 Chloride 101.9 mmol/L (98-107) 02/23/17 06:33 Carbon Dioxide 23 mmol/L (22-30) 02/23/17 06:33 Anion Gap 16 mmol/L 02/23/17 06:33 BUN 16 mg/dL (7-17) 02/23/17 06:33 Creatinine 1.3 mg/dL (0.7-1.2) H 02/23/17 06:33 Estimated GFR 39 ml/min 02/23/17 06:33 BUN/Creatinine Ratio 12.30 % 02/23/17 06:33 Glucose 85 mg/dL (65-100) 02/23/17 06:33 Calcium 9.0 mg/dL (8.4-10.2) 02/23/17 06:33 Total Bilirubin 0.30 mg/dL (0.1-1.2) 02/23/17 19:11 Direct Bilirubin < 0.2 mg/dL (0-0.2) 02/23/17 19:11 Indirect Bilirubin 0.1 mg/dL 02/23/17 19:11 AST 12 units/L (5-40) 02/23/17 19:11 ALT 7 units/L (7-56) 02/23/17 19:11 Alkaline Phosphatase 140 units/L (35-129) H 02/23/17 19:11 Lactate Dehydrogenase 239 units/L (91-180) H 02/23/17 19:11 Total Creatine Kinase 28 units/L (30-135) L 02/22/17 08:55 CK-MB (CK-2) 1.8 ng/mL (0.0-4.0) 02/22/17 08:55 CK-MB (CK-2) Rel Index 6.4 (0-4) H 02/22/17 08:55 Troponin T < 0.010 ng/mL (0.00-0.029) 02/22/17 08:55 NT-Pro-B Natriuret Pep 3727 pg/mL (0-900) H 02/21/17 20:44 Total Protein 6.2 g/dL (6.3-8.2) L 02/23/17 19:11 Albumin 3.5 g/dL (3.9-5) L 02/23/17 19:11 Albumin/Globulin Ratio 1.3 % 02/23/17 19:11 Fluid Type Pleural 02/23/17 16:40 Fluid Color Yellow 02/23/17 16:40 Fluid Appearance Hazy 02/23/17 16:40 Fluid WBC 750 /mm3 02/23/17 16:40 Fluid RBC 1150 /mm3 02/23/17 16:40 Fluid Seg Neutrophils 21.0 % 02/23/17 16:40 Fluid Lymphocytes 67.0 % 02/23/17 16:40 Fluid Reactive Lymphs 0 % 02/23/17 16:40 Fluid Monocytes 11.0 % 02/23/17 16:40 Fluid Eosinophils 1.0 % 02/23/17 16:40 Fluid Basophils 0 % 02/23/17 16:40
[2017-02-24] MEDS: ZYLOPRIM PO SCH (14:37)
[2017-02-24] MEDS: COREG PO SCH ×2 (14:37→22:02)
[2017-02-24] MEDS: LASIX PO SCH (14:37)
[2017-02-24] MEDS: PROTONIX PO PRN (14:38)
--- NOTE | 2017-02-24 15:43 | Progress Note ---
Assessment and Plan Imp: 1. Pulm nodules/pleural effusion/mediastinal LAD/liver mass/retroperitoneal LAD -> probable malignancy 2. Hemoptysis 2/2 #1, better 3. TSERING vs. CKD Rec: 1. Awaiting pleural fluid studies including LDH, protein, glucose, cyto, and cultures; consider repeat tap if non-diagnostic or more fluid needed 2. Monitor Plan of care reviewed w/ patient, she understands/agrees Subjective Date of service: 02/24/17 Principal diagnosis: Pleural effusion Interval history: No events. Awake, alert. No cough, sputum. Active Medications Acetaminophen (Tylenol) 650 mg PO Q4H PRN PRN Reason: Pain MILD(1-3)/Fever >100.5/[place] Allopurinol (Zyloprim) 300 mg PO QDAY [facility] Last Admin: 02/24/17 14:37 Dose: 300 mg Bisacodyl (Dulcolax) 10 mg [place] QDAY PRN PRN Reason: Constipation unrelieved by MOM Carvedilol (Coreg) 6.25 mg PO BID [facility] Last Admin: 02/24/17 14:37 Dose: 6.25 mg Ferrous Gluconate (Fergon) 324 mg PO BID [facility] Furosemide (Lasix) 20 mg PO QDAY [facility] Last Admin: 02/24/17 14:37 Dose: 20 mg Hydralazine HCl (Apresoline) 10 mg IV Q4HR PRN PRN Reason: Hypertension Magnesium Hydroxide (Milk Of Magnesia) 30 ml PO Q4H PRN PRN Reason: Constipation Miscellaneous Medication (Polyethylene Glycol 600 [Polyethylene Glycol 600]) 300 tab PO DAILY [facility] Ondansetron HCl (Zofran) 4 mg IV Q8H PRN PRN Reason: N/V unrelieved by Reglan Pantoprazole Sodium (Protonix) 40 mg PO DAILY PRN PRN Reason: Acid reflux Last Admin: 02/24/17 14:38 Dose: 40 mg Simvastatin (Zocor) 10 mg PO QHS [facility] Last Admin: 02/23/17 21:36 Dose: 10 mg Objective Vital Signs - 12hr 02/24/17 04:08 Temperature 98.5 F Pulse Rate 78 Respiratory 20 Rate Blood Pressure 123/57 O2 Sat by Pulse 94 Oximetry Constitutional: no acute distress, alert Eyes: non-icteric ENT: oropharynx moist Effort: normal Ascultation: Right: diminished breath sounds (base) Cardiovascular: regular rate and rhythm (no mrg) Gastrointestinal: normoactive bowel sounds, soft, non-tender, non-distended Integumentary: normal Extremities: no cyanosis, no edema, pink and warm Neurologic: normal mental status, non-focal exam, pupils equal and round, CN II- XII normal Psychiatric: mood appropriate, affect normal CBC and BMP: 02/23/17 06:33 02/23/17 06:33 ABG, PT/INR, D-dimer: PT/INR, D-dimer PT 14.0 Sec. (12.2-14.9) 02/21/17 20:44 INR 1.03 (0.87-1.13) 02/21/17 20:44 D-Dimer 1308.61 ng/mlDDU (0-234) H 02/21/17 20:44 Abnormal lab findings: Abnormal Labs 02/22/17 02/22/17 02/23/17 03:05 08:55 06:33 RBC 2.56 L Hgb 8.2 L Hct 25.1 L MCV 98 H RDW 17.1 H [place] % (Auto) 11.7 H Eos % (Auto) 7.3 H Baso % (Auto) 2.9 H [place] # 1.0 H Eos # 0.6 H Baso # 0.2 H Creatinine Alkaline Phosphatase Lactate Dehydrogenase Total Creatine Kinase 20 L 28 L CK-MB (CK-2) Rel Index 7.0 H 6.4 H Total Protein Albumin 02/23/17 02/23/17 06:33 19:11 RBC Hgb Hct MCV RDW [place] % (Auto) Eos % (Auto) Baso % (Auto) [place] # Eos # Baso # Creatinine 1.3 H Alkaline Phosphatase 140 H Lactate Dehydrogenase 239 H Total Creatine Kinase CK-MB (CK-2) Rel Index Total Protein 6.2 L Albumin 3.5 L Chest x-ray: report reviewed, image reviewed (reduced pleural effusion on R)
--- NOTE | 2017-02-24 21:08 | Consultation ---
History of Present Illness - Reason for Consult Consult date: 02/24/17 - History of Present Illness Patient seen/examined, record reviewed, case d/w patient. pleural fluid analysis pending results/path. She had left breast cancer about 15yrs ago, had lumpectomy, followed by chemo/XRT, then 5yrs of tamoxifen. her last mammogram was a few yrs ago. These current scans, very concerning for wide spread metastasis. Pleural fluid is usually a poor yield , in which case she may have to have T3 lesion bx, or pelvic bx. by the IR. i would not recommend repeating pleural fluid tap again, as it may still come back non diagnostic. if this comes back positive, she may be only eligible for hormonal therapy, especially given her age, and probably no curative intent, with wide spread mets. Past History Past Medical History: other (breast CA, CHF) Past Surgical History: Other Social history: no significant social history Medications and Allergies Allergies Allergy/AdvReac Type Severity Reaction Status Date / Time No Known Allergies Allergy Verified 02/22/17 02:57 Home Medications Medication Instructions Recorded Confirmed Last Taken Type Alendronate Sodium 35 mg PO 7XD 02/22/17 02/22/17 02/21/17 History Allopurinol [Zyloprim] 300 mg PO QDAY 02/22/17 02/22/17 02/21/17 History Carvedilol [Coreg] 6.25 mg PO BID 02/22/17 02/22/17 02/21/17 History Clopidogrel Bisulfate [Plavix] 75 mg PO DAILY 02/22/17 02/22/17 02/21/17 History Cyanocobalamin [Vitamin B-12] 1,000 mcg IM QMONTH 02/22/17 02/22/17 02/21/17 History Ferrous Gluconate [Fergon 240 MG 240 mg PO BID 02/22/17 02/22/17 02/21/17 History tab] Furosemide [Lasix] 20 mg PO QDAY 02/22/17 02/22/17 02/21/17 History Ipratropium/Albuterol Sulfate 20 - 100 mcg IH QID 02/22/17 02/22/17 02/21/17 History [Combivent Respimat Inhal [place]] Ipratropium/Albuterol Sulfate 20 - 100 mcg IH QID 02/22/17 02/22/1702/21/17 History [Combivent Respimat] Lovastatin [Altoprev] 20 mg PO QPM 02/22/17 02/22/17 02/21/17 History Pantoprazole Sodium 40 mg PO PRN 02/22/17 02/22/17 02/21/17 History Polyethylene Glycol 600 300 tab PO DAILY 02/22/17 02/22/17 02/21/17 History Active Meds: Active Medications Acetaminophen (Tylenol) 650 mg PO Q4H PRN PRN Reason: Pain MILD(1-3)/Fever >100.5/[place] Allopurinol (Zyloprim) 300 mg PO QDAY [facility] Last Admin: 02/24/17 14:37 Dose: 300 mg Bisacodyl (Dulcolax) 10 mg [place] QDAY PRN PRN Reason: Constipation unrelieved by MOM Carvedilol (Coreg) 6.25 mg PO BID [facility] Last Admin: 02/24/17 14:37 Dose: 6.25 mg Ferrous Gluconate (Fergon) 324 mg PO BID [facility] Furosemide (Lasix) 20 mg PO QDAY [facility] Last Admin: 02/24/17 14:37 Dose: 20 mg Heparin Sodium (Porcine) (Heparin) 5,000 unit SUB-Q Q12HR [facility] Hydralazine HCl (Apresoline) 10 mg IV Q4HR PRN PRN Reason: Hypertension Magnesium Hydroxide (Milk Of Magnesia) 30 ml PO Q4H PRN PRN Reason: Constipation Miscellaneous Medication (Polyethylene Glycol 600 [Polyethylene Glycol 600]) 300 tab PO DAILY [facility] Ondansetron HCl (Zofran) 4 mg IV Q8H PRN PRN Reason: N/V unrelieved by Reglan Pantoprazole Sodium (Protonix) 40 mg PO DAILY PRN PRN Reason: Acid reflux Last Admin: 02/24/17 14:38 Dose: 40 mg Simvastatin (Zocor) 10 mg PO QHS [facility] Last Admin: 02/23/17 21:36 Dose: 10 mg Review of Systems Breasts: deferred Exam - Constitutional Vitals: Temp Pulse Resp BP Pulse Ox 97.9 F 78 20 103/56 98 02/24/17 19:59 02/24/17 20:10 02/24/17 20:10 02/24/17 19:59 02/24/17 20:10 General appearance: Present: no acute distress, well-nourished - EENT Eyes: Present: PERRL ENT: hearing intact, clear oral mucosa - Neck Neck: Present: supple, normal ROM - Respiratory Respiratory effort: normal Respiratory: bilateral: CTA - Cardiovascular Heart Sounds: Present: S1 & S2. Absent: rub, click - Extremities Extremities: pulses symmetrical, No edema Peripheral Pulses: within normal limits - Abdominal General gastrointestinal: Present: soft, non-tender, non-distended, normal bowel sounds Female genitourinary: Present: deferred - Rectal Rectal Exam: deferred - Integumentary Integumentary: Present: clear, warm, dry - Musculoskeletal Musculoskeletal: gait normal, strength equal bilaterally - Psychiatric Psychiatric: appropriate mood/affect, intact judgment & insight - Neurologic Neurologic: CNII-XII intact, moves all extremities Results - Labs CBC & Chem 7: 02/23/17 06:33 02/23/17 06:33 Assessment and Plan - Patient Problems (1) Lymphadenopathy, thoracic Current Visit: Yes Status: Acute Plan to address problem: highly suspicious for mets from the previous left breast cancer. (2) Pleural effusion, right Current Visit: Yes Status: Acute Plan to address problem: Same as above,s/p a tap. , awaiting results. (3) Pulmonary nodules Current Visit: Yes Status: Acute
[2017-02-24] MEDS: ZOCOR PO SCH (22:02)
[2017-02-24] MEDS: FERGON PO SCH (22:02)
[2017-02-24] MEDS: HEPARIN SUB-Q SCH (22:03)
[2017-02-25 06:05] LABS: Hematocrit 24.4 % (30.3-42.9); Hemoglobin 7.9 gm/dl (10.1-14.3); Mean Corpuscular HGB Conc 33 % (30-34); Mean Corpuscular Hemoglobin 32 pg (28-32); Mean Corpuscular Volume 98 fl (79-97); Platelet Count 136 K/mm3 (140-440); Red Blood Count 2.49 M/mm3 (3.65-5.03); Red Cell Distribution Width 17.3 % (13.2-15.2); White Blood Count 7.9 K/mm3 (4.5-11.0)
[2017-02-25 06:25] LABS: BUN/Creatinine Ratio 11.11; Calcium 8.6 mg/dL (8.4-10.2); Chloride 97.5 mmol/L (98-107); Potassium 4.3 mmol/L (3.6-5.0)
[2017-02-25] MEDS: COREG PO SCH ×2 (09:02→22:10)
[2017-02-25] MEDS: LASIX PO SCH (09:03)
[2017-02-25] MEDS: ZYLOPRIM PO SCH (09:03)
[2017-02-25] MEDS: FERGON PO SCH ×2 (09:03→22:10)
[2017-02-25] MEDS: HEPARIN SUB-Q SCH ×2 (09:04→22:10)
[2017-02-25] MEDS: MILK OF MAGNESIA PO PRN ×2 (09:04→19:00)
--- NOTE | 2017-02-25 11:27 | Progress Note ---
Assessment and Plan Imp: 1. Pulm nodules/pleural effusion/mediastinal LAD/liver mass/retroperitoneal LAD -> probable malignancy 2. Hemoptysis 2/2 #1, better 3. TSERING vs. CKD 4. Thrombocytopenia Rec: 1. Confirmed with pathology that they have the pleural fluid specimen -> f/u results when available 2. Monitor platelets 3. Repeat CXR in 1-2 days Plan of care reviewed w/ patient, she understands/agrees; no family present Subjective Date of service: 02/25/17 Principal diagnosis: Pleural effusion Interval history: No events. Awake, alert. No cough, sputum. On RA. Active Medications Acetaminophen (Tylenol) 650 mg PO Q4H PRN PRN Reason: Pain MILD(1-3)/Fever >100.5/[place] Allopurinol (Zyloprim) 300 mg PO QDAY [facility] Last Admin: 02/25/17 09:03 Dose: 300 mg Bisacodyl (Dulcolax) 10 mg [place] QDAY PRN PRN Reason: Constipation unrelieved by MOM Carvedilol (Coreg) 6.25 mg PO BID [facility] Last Admin: 02/25/17 09:02 Dose: 6.25 mg Ferrous Gluconate (Fergon) 324 mg PO BID [facility] Last Admin: 02/25/17 09:03 Dose: 324 mg Furosemide (Lasix) 20 mg PO QDAY [facility] Last Admin: 02/25/17 09:03 Dose: 20 mg Heparin Sodium (Porcine) (Heparin) 5,000 unit SUB-Q Q12HR [facility] Last Admin: 02/25/17 09:04 Dose: 5,000 unit Hydralazine HCl (Apresoline) 10 mg IV Q4HR PRN PRN Reason: Hypertension Magnesium Hydroxide (Milk Of Magnesia) 30 ml PO Q4H PRN PRN Reason: Constipation Last Admin: 02/25/17 09:04 Dose: 30 ml Miscellaneous Medication (Polyethylene Glycol 600 [Polyethylene Glycol 600]) 300 tab PO DAILY [facility] Ondansetron HCl (Zofran) 4 mg IV Q8H PRN PRN Reason: N/V unrelieved by Reglan Pantoprazole Sodium (Protonix) 40 mg PO DAILY PRN PRN Reason: Acid reflux Last Admin: 02/24/17 14:38 Dose: 40 mg Simvastatin (Zocor) 10 mg PO QHS [facility] Last Admin: 02/24/17 22:02 Dose: 10 mg Objective Vital Signs - 12hr 02/25/17 02/25/17 02/25/17 00:00 05:10 07:25 Temperature 97.6 F 98.2 F 97.9 F Pulse Rate 72 56 L 65 Pulse Rate [ Apical] Respiratory 20 18 18 Rate Blood Pressure 137/63 116/83 139/83 O2 Sat by Pulse 94 99 98 Oximetry 02/25/17 02/25/17 02/25/17 08:39 09:02 10:31 Temperature Pulse Rate 64 Pulse Rate [ 64 Apical] Respiratory Rate Blood Pressure 139/83 O2 Sat by Pulse 97 93 Oximetry Constitutional: no acute distress, alert Eyes: non-icteric ENT: oropharynx moist Effort: normal Ascultation: Right: diminished breath sounds (base) Cardiovascular: regular rate and rhythm (no mrg) Gastrointestinal: normoactive bowel sounds, soft, non-tender, non-distended Integumentary: normal Extremities: no cyanosis, no edema, pink and warm Neurologic: normal mental status, non-focal exam, pupils equal and round, CN II- XII normal Psychiatric: mood appropriate, affect normal CBC and BMP: 02/25/17 05:28 02/25/17 05:28 ABG, PT/INR, D-dimer: PT/INR, D-dimer PT 14.0 Sec. (12.2-14.9) 02/21/17 20:44 INR 1.03 (0.87-1.13) 02/21/17 20:44 D-Dimer 1308.61 ng/mlDDU (0-234) H 02/21/17 20:44 Abnormal lab findings: Abnormal Labs 02/22/17 02/22/17 02/23/17 03:05 08:55 06:33 RBC 2.56 L Hgb 8.2 L Hct 25.1 L MCV 98 H RDW 17.1 H Plt Count [place] % (Auto) 11.7 H Eos % (Auto) 7.3 H Baso % (Auto) 2.9 H [place] # 1.0 H Eos # 0.6 H Baso # 0.2 H Sodium Chloride BUN Creatinine Alkaline Phosphatase Lactate Dehydrogenase Total Creatine Kinase 20 L 28 L CK-MB (CK-2) Rel Index 7.0 H 6.4 H Total Protein Albumin 02/23/17 02/23/17 02/25/17 06:33 19:11 05:28 RBC 2.49 L Hgb 7.9 L Hct 24.4 L MCV 98 H RDW 17.3 H Plt Count 136 L [place] % (Auto) Eos % (Auto) Baso % (Auto) [place] # Eos # Baso # Sodium Chloride BUN Creatinine 1.3 H Alkaline Phosphatase 140 H Lactate Dehydrogenase 239 H Total Creatine Kinase CK-MB (CK-2) Rel Index Total Protein 6.2 L Albumin 3.5 L 02/25/17 05:28 RBC Hgb Hct MCV RDW Plt Count [place] % (Auto) Eos % (Auto) Baso % (Auto) [place] # Eos # Baso # Sodium 134 L Chloride 97.5 L BUN 20 H Creatinine 1.8 H Alkaline Phosphatase Lactate Dehydrogenase Total Creatine Kinase CK-MB (CK-2) Rel Index Total Protein Albumin Chest x-ray: report reviewed, image reviewed
--- NOTE | 2017-02-25 15:06 | Progress Note ---
Assessment and Plan Right pleural effusion. - Had thoracentesis and pleural fluid sent for analysis, to rule out malignancy. - Pathology report pending. Pulmonology following. Multiple pulmonary nodules bilaterally, suspicious for metastases. - awaiting path report from pleural fluid. Dr. Buck following. Coronary artery disease. - No chest pain Chronic CHF. - On Lasix History of breast cancer. - suspicion of recurrence, wait for pathology report Hyperlipidemia - place on statin Possible dementia with behavioral change -will consult psych Full CODE STATUS DVT prophylaxis. Start Heparin subcut. Subjective Date of service: 02/25/17 Principal diagnosis: Pleural effusion Interval history: Patient seen and examined. Medical records and medication list reviewed. No acute event overnight noted by the RN. Patient c/o pleuretic chest pain and difficulty breathing. Patient is tolerating diet. Discussed plan of care at bedside with patient. Family is concern that pt might have dementia Objective - Exam Narrative Exam: Gen appearance: Not in acute distress, HEENT: Normocephalic, atraumatic Neck: Supple, no JVD Lungs: Decreased breath sounds right lower lung field, no crackles, or wheezes. Heart: S1 and S2 regular, no murmurs, no gallops,no rubs Abdomen : Soft, non-tender, non-distended, normal bowel sounds Extremities :No edema, no clubbing or cyanosis Neuro: Awake, alert, oriented, normal speech, no focal neurological signs Psych: normal mood. - Constitutional Vitals: Vital Signs - 12hr 02/25/17 02/25/17 02/25/17 05:10 07:25 08:39 Temperature 98.2 F 97.9 F Pulse Rate 56 L 65 Pulse Rate [ 64 Apical] Respiratory 18 18 Rate Blood Pressure 116/83 139/83 O2 Sat by Pulse 99 98 97 Oximetry 02/25/17 02/25/17 02/25/17 09:02 10:31 11:05 Temperature 98.0 F Pulse Rate 64 61 Pulse Rate [ Apical] Respiratory 20 Rate Blood Pressure 139/83 105/56 O2 Sat by Pulse 93 Oximetry 02/25/17 13:30 Temperature Pulse Rate 65 Pulse Rate [ Apical] Respiratory Rate Blood Pressure O2 Sat by Pulse Oximetry - Labs CBC & Chem 7: 02/25/17 05:28 02/25/17 05:28 Labs: Abnormal lab results 08/08/17 08/08/17 Range/Units 05:28 05:28 RBC 2.49 L (3.65-5.03) M/mm3 Hgb 7.9 L (10.1-14.3) gm/dl Hct 24.4 L (30.3-42.9) % MCV 98 H (79-97) fl RDW 17.3 H (13.2-15.2) % Plt Count 136 L (140-440) K/mm3 Sodium 134 L (137-145) mmol/L Chloride 97.5 L (98-107) mmol/L BUN 20 H (7-17) mg/dL Creatinine 1.8 H (0.7-1.2) mg/dL
--- NOTE | 2017-02-25 21:28 | Consultation ---
History of Present Illness - Reason for Consult Consult date: 02/25/17 - History of Present Illness Patient seen/examined,resting in bed, no new issues , path report still awaited. Past History Past Medical History: other (breast CA, CHF) Past Surgical History: Other Social history: no significant social history Medications and Allergies Allergies Allergy/AdvReac Type Severity Reaction Status Date / Time No Known Allergies Allergy Verified 02/22/17 02:57 Home Medications Medication Instructions Recorded Confirmed Last Taken Type Alendronate Sodium 35 mg PO 7XD 02/22/17 02/22/17 02/21/17 History Allopurinol [Zyloprim] 300 mg PO QDAY 02/22/17 02/22/17 02/21/17 History Carvedilol [Coreg] 6.25 mg PO BID 02/22/17 02/22/17 02/21/17 History Clopidogrel Bisulfate [Plavix] 75 mg PO DAILY 02/22/17 02/22/17 02/21/17 History Cyanocobalamin [Vitamin B-12] 1,000 mcg IM QMONTH 02/22/17 02/22/17 02/21/17 History Ferrous Gluconate [Fergon 240 MG 240 mg PO BID 02/22/17 02/22/17 02/21/17 History tab] Furosemide [Lasix] 20 mg PO QDAY 02/22/17 02/22/17 02/21/17 History Ipratropium/Albuterol Sulfate 20 - 100 mcg IH QID 02/22/17 02/22/17 02/21/17 History [Combivent Respimat Inhal [place]] Ipratropium/Albuterol Sulfate 20 - 100 mcg IH QID 02/22/17 02/22/17 02/21/17 History [Combivent Respimat] Lovastatin [Altoprev] 20 mg PO QPM 02/22/17 02/22/17 02/21/17 History Pantoprazole Sodium 40 mg PO PRN 02/22/17 02/22/17 02/21/17 History Polyethylene Glycol 600 300 tab PO DAILY 02/22/17 02/22/17 02/21/17 History Active Meds: Active Medications Acetaminophen (Tylenol) 650 mg PO Q4H PRN PRN Reason: Pain MILD(1-3)/Fever >100.5/[facility] Allopurinol (Zyloprim) 300 mg PO QDAY [facility] Last Admin: 02/25/17 09:03 Dose: 300 mg Bisacodyl (Dulcolax) 10 mg [place] QDAY PRN PRN Reason: Constipation unrelieved by MOM Carvedilol (Coreg) 6.25 mg PO BID [facility] Last Admin: 02/25/17 09:02 Dose: 6.25 mg Ferrous Gluconate (Fergon) 324 mg PO BID [facility] Last Admin: 02/25/17 09:03 Dose: 324 mg Furosemide (Lasix) 20 mg PO QDAY [facility] Last Admin: 02/25/17 09:03 Dose: 20 mg Heparin Sodium (Porcine) (Heparin) 5,000 unit SUB-Q Q12HR [facility] Last Admin: 02/25/17 09:04 Dose: 5,000 unit Hydralazine HCl (Apresoline) 10 mg IV Q4HR PRN PRN Reason: Hypertension Magnesium Hydroxide (Milk Of Magnesia) 30 ml PO Q4H PRN PRN Reason: Constipation Last Admin: 02/25/17 19:00 Dose: 30 ml Miscellaneous Medication (Polyethylene Glycol 600 [Polyethylene Glycol 600]) 300 tab PO DAILY [facility] Ondansetron HCl (Zofran) 4 mg IV Q8H PRN PRN Reason: N/V unrelieved by Reglan Pantoprazole Sodium (Protonix) 40 mg PO DAILY PRN PRN Reason: Acid reflux Last Admin: 02/24/17 14:38 Dose: 40 mg Simvastatin (Zocor) 10 mg PO QHS [facility] Last Admin: 02/24/17 22:02 Dose: 10 mg Review of Systems Breasts: deferred Exam - Constitutional Vitals: Temp Pulse Resp BP Pulse Ox 98.1 F 71 18 120/68 96 02/25/17 20:35 02/25/17 20:35 02/25/17 20:35 02/25/17 20:35 02/25/17 20:35 General appearance: Present: mild distress, well-nourished - EENT Eyes: Present: PERRL ENT: hearing intact, clear oral mucosa - Neck Neck: Present: supple, normal ROM - Respiratory Respiratory effort: normal Respiratory: bilateral: CTA - Cardiovascular Heart Sounds: Present: S1 & S2. Absent: rub, click - Extremities Extremities: pulses symmetrical, No edema Peripheral Pulses: within normal limits - Abdominal General gastrointestinal: Present: soft, non-tender, non-distended, normal bowel sounds Female genitourinary: Present: deferred - Rectal Rectal Exam: deferred - Integumentary Integumentary: Present: clear, warm, dry - Musculoskeletal Musculoskeletal: gait normal, strength equal bilaterally - Psychiatric Psychiatric: appropriate mood/affect, intact judgment & insight - Neurologic Neurologic: CNII-XII intact, moves all extremities Results - Labs CBC & Chem 7: 02/25/17 05:28 02/25/17 05:28 Labs: Abnormal lab results 02/25/17 02/25/17 Range/Units 05:28 05:28 RBC 2.49 L (3.65-5.03) M/mm3 Hgb 7.9 L (10.1-14.3) gm/dl Hct 24.4 L (30.3-42.9) % MCV 98 H (79-97) fl RDW 17.3 H (13.2-15.2) % Plt Count 136 L (140-440) K/mm3 Sodium 134 L (137-145) mmol/L Chloride 97.5 L (98-107) mmol/L BUN 20 H (7-17) mg/dL Creatinine 1.8 H (0.7-1.2) mg/dL Assessment and Plan - Patient Problems (1) Lymphadenopathy, thoracic Current Visit: Yes Status: Acute Plan to address problem: highly suspicious for mets from the previous left breast cancer. same as above. (2) Pleural effusion, right Current Visit: Yes Status: Acute Plan to address problem: Same as above,s/p a tap. , awaiting results. (3) Pulmonary nodules Current Visit: Yes Status: Acute Plan to address problem: See notes above.
[2017-02-25] MEDS: ZOCOR PO SCH (22:10)
[2017-02-26 08:56] LABS: BUN/Creatinine Ratio 13.33; Calcium 8.4 mg/dL (8.4-10.2); Chloride 97.1 mmol/L (98-107); Potassium 4.5 mmol/L (3.6-5.0)
[2017-02-26] MEDS ORDERED: NACL 0.9% 1000 ML 1,000 ML IV SCH (10:30)
[2017-02-26] MEDS: LASIX PO SCH (11:14)
[2017-02-26] MEDS: HEPARIN SUB-Q SCH ×2 (11:14→23:02)
[2017-02-26] MEDS: COREG PO SCH ×2 (11:14→23:02)
[2017-02-26] MEDS: ZYLOPRIM PO SCH (11:14)
[2017-02-26] MEDS: FERGON PO SCH ×2 (11:14→23:01)
--- NOTE | 2017-02-26 13:58 | Progress Note ---
Assessment and Plan Imp: 1. Pulm nodules/pleural effusion/mediastinal LAD/liver mass/retroperitoneal LAD -> probable malignancy 2. Hemoptysis 2/2 #1, better 3. TSERING vs. CKD 4. Thrombocytopenia Rec: 1. Confirmed with pathology that they have the pleural fluid specimen -> f/u results when available 2. Labs in AM 3. Repeat CXR in AM; if effusion is malignant and re-accumulates would consider PleurX cath 4. Reviewed [facility] records -> CT chest 01/2016 showed mediastinal LAD, RLL pleural- based nodule, small R effusion; was in [facility] 01/04 for TIA, MRI brain neg, and had CXR that showed moderate R effusion at that point Plan of care reviewed w/ patient and her caregiver, they understand/agree; apparently does not have any family Subjective Date of service: 02/26/17 Principal diagnosis: Pleural effusion Interval history: No events. Awake, alert. No cough, sputum. On RA. Active Medications Acetaminophen (Tylenol) 650 mg PO Q4H PRN PRN Reason: Pain MILD(1-3)/Fever >100.5/[facility] Allopurinol (Zyloprim) 300 mg PO QDAY [facility] Last Admin: 02/26/17 11:14 Dose: 300 mg Bisacodyl (Dulcolax) 10 mg [place] QDAY PRN PRN Reason: Constipation unrelieved by MOM Carvedilol (Coreg) 6.25 mg PO BID [facility] Last Admin: 02/26/17 11:14 Dose: 6.25 mg Ferrous Gluconate (Fergon) 324 mg PO BID [facility] Last Admin: 02/26/17 11:14 Dose: 324 mg Furosemide (Lasix) 20 mg PO QDAY [facility] Last Admin: 02/26/17 11:14 Dose: 20 mg Heparin Sodium (Porcine) (Heparin) 5,000 unit SUB-Q Q12HR [facility] Last Admin: 02/26/17 11:14 Dose: 5,000 unit Hydralazine HCl (Apresoline) 10 mg IV Q4HR PRN PRN Reason: Hypertension Sodium Chloride (Nacl 0.9% 1000 Ml) 1,000 mls @ 100 mls/hr IV DIRECT [facility] Magnesium Hydroxide (Milk Of Magnesia) 30 ml PO Q4H PRN PRN Reason: Constipation Last Admin: 02/25/17 19:00 Dose: 30 ml Miscellaneous Medication (Polyethylene Glycol 600 [Polyethylene Glycol 600]) 300 tab PO DAILY [facility] Ondansetron HCl (Zofran) 4 mg IV Q8H PRN PRN Reason: N/V unrelieved by Deon Pantoprazole Sodium (Protonix) 40 mg PO DAILY PRN PRN Reason: Acid reflux Last Admin: 02/24/17 14:38 Dose: 40 mg Simvastatin (Zocor) 10 mg PO QHS [facility] Last Admin: 02/25/17 22:10 Dose: 10 mg Objective Vital Signs - 12hr 02/26/17 02/26/17 02/26/17 05:00 09:22 10:00 Temperature 98.2 F 97.4 F L Pulse Rate 69 60 71 Respiratory 18 18 Rate Blood Pressure 152/67 115/69 O2 Sat by Pulse 97 98 Oximetry 02/26/17 13:00 Temperature 97.4 F L Pulse Rate 68 Respiratory 18 Rate Blood Pressure 122/71 O2 Sat by Pulse 98 Oximetry Constitutional: no acute distress, alert Eyes: non-icteric ENT: oropharynx moist Effort: normal Ascultation: Right: diminished breath sounds (base) Cardiovascular: regular rate and rhythm (no mrg) Gastrointestinal: normoactive bowel sounds, soft, non-tender, non-distended Integumentary: normal Extremities: no cyanosis, no edema, pink and warm Neurologic: normal mental status, non-focal exam, pupils equal and round, CN II- XII normal Psychiatric: mood appropriate, affect normal CBC and BMP: 02/25/17 05:28 02/26/17 08:25 ABG, PT/INR, D-dimer: PT/INR, D-dimer PT 14.0 Sec. (12.2-14.9) 02/21/17 20:44 INR 1.03 (0.87-1.13) 02/21/17 20:44 D-Dimer 1308.61 ng/mlDDU (0-234) H 02/21/17 20:44 Abnormal lab findings: Abnormal Labs 02/22/17 02/22/17 02/23/17 03:05 08:55 06:33 RBC 2.56 L Hgb 8.2 L Hct 25.1 L MCV 98 H RDW 17.1 H Plt Count [place] % (Auto) 11.7 H Eos % (Auto) 7.3 H Baso % (Auto) 2.9 H [place] # 1.0 H Eos # 0.6 H Baso # 0.2 H Sodium Chloride BUN Creatinine Alkaline Phosphatase Lactate Dehydrogenase Total Creatine Kinase 20 L 28 L CK-MB (CK-2) Rel Index 7.0 H 6.4 H Total Protein Albumin CA 27-29 CA 125 Antigen 02/23/17 02/23/17 02/24/17 06:33 19:11 01:35 RBC Hgb Hct MCV RDW Plt Count [place] % (Auto) Eos % (Auto) Baso % (Auto) [place] # Eos # Baso # Sodium Chloride BUN Creatinine 1.3 H Alkaline Phosphatase 140 H Lactate Dehydrogenase 239 H Total Creatine Kinase CK-MB (CK-2) Rel Index Total Protein 6.2 L Albumin 3.5 L CA 27-29 39 H CA 125 Antigen 02/24/17 02/25/17 02/25/17 01:35 05:28 05:28 RBC 2.49 L Hgb 7.9 L Hct 24.4 L MCV 98 H RDW 17.3 H Plt Count 136 L [place] % (Auto) Eos % (Auto) Baso % (Auto) [place] # Eos # Baso # Sodium 134 L Chloride 97.5 L BUN 20 H Creatinine 1.8 H Alkaline Phosphatase Lactate Dehydrogenase Total Creatine Kinase CK-MB (CK-2) Rel Index Total Protein Albumin CA 27-29 CA 125 Antigen 269 H 02/26/17 08:25 RBC Hgb Hct MCV RDW Plt Count [place] % (Auto) Eos % (Auto) Baso % (Auto) [place] # Eos # Baso # Sodium 134 L Chloride 97.1 L BUN 20 H Creatinine 1.5 H Alkaline Phosphatase Lactate Dehydrogenase Total Creatine Kinase CK-MB (CK-2) Rel Index Total Protein Albumin CA 27-29 CA 125 Antigen Chest x-ray: report reviewed, image reviewed
--- NOTE | 2017-02-26 15:55 | Progress Note ---
Assessment and Plan Right pleural effusion. - Had thoracentesis and pleural fluid sent for analysis, to rule out malignancy. - Pathology report pending. Pulmonology following. Multiple pulmonary nodules bilaterally, suspicious for metastases. - awaiting path report from pleural fluid. Dr. Buck following. Coronary artery disease. - No chest pain Chronic CHF. - On Lasix History of breast cancer. - suspicion of recurrence, wait for pathology report Hyperlipidemia - place on statin Possible dementia with behavioral change -consulted psych Full CODE STATUS DVT prophylaxis. Start Heparin subcut. Subjective Date of service: 02/26/17 Principal diagnosis: Pleural effusion Interval history: Patient seen and examined. Medical records and medication list reviewed. No acute event overnight noted by the RN. Patient c/o pleuretic chest pain and difficulty breathing. Patient is tolerating diet. Discussed plan of care at bedside with patient. also discussed the plan with caregiver Objective - Exam Narrative Exam: Gen appearance: Not in acute distress, HEENT: Normocephalic, atraumatic Neck: Supple, no JVD Lungs: Decreased breath sounds right lower lung field, no crackles, or wheezes. Heart: S1 and S2 regular, no murmurs, no gallops,no rubs Abdomen : Soft, non-tender, non-distended, normal bowel sounds Extremities :No edema, no clubbing or cyanosis Neuro: Awake, alert, oriented, normal speech, no focal neurological signs Psych: normal mood. - Constitutional Vitals: Vital Signs - 12hr 02/26/17 02/26/17 02/26/17 05:00 09:22 10:00 Temperature 98.2 F 97.4 F L Pulse Rate 69 60 71 Respiratory 18 18 Rate Blood Pressure 152/67 115/69 O2 Sat by Pulse 97 98 Oximetry 02/26/17 13:00 Temperature 97.4 F L Pulse Rate 68 Respiratory 18 Rate Blood Pressure 122/71 O2 Sat by Pulse 98 Oximetry - Labs CBC & Chem 7: 02/25/17 05:28 02/26/17 08:25 Labs: Abnormal lab results 02/24/17 02/24/17 02/26/17 Range/Units 01:35 01:35 08:25 Sodium 134 L (137-145) mmol/L Chloride 97.1 L (98-107) mmol/L BUN 20 H (7-17) mg/dL Creatinine 1.5 H (0.7-1.2) mg/dL CA 27-29 39 H (<38) U/mL CA 125 Antigen 269 H (<35) U/mL
--- NOTE | 2017-02-26 17:43 | Consultation ---
History of Present Illness - Reason for Consult Consult date: 02/26/17 Reason for consult: psychiatric consult for confusion - Chief Complaint Chief complaint: "confusion" - History of Present Psychiatric Illness Ms. Em is an 87 year old female seen on the medical floor for evaluation of confusion/altered mental status. She reports not feeling herself for 10 days with intermittent confusion. She is undergoing treatment for pulmonary concerns. She initially presented to the hospital for cough and hemoptysis. She denies a history of dementia, depression, anxiety, or any other mental illness. She lives [facility]. She completes all of her ADLS and cooks for herself. She has 4 friends at her residence and a helper/ friend whom she pays. She has a brother and sister in law but her primary social and transportation support is from her helper and friends. She reports feeling sad periodically when she does not receive help she needs from her brother but denies this to be persistent sadness. She denies suicidal ideation. She denies auditory or visual hallucinations. 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 She denies confusion prior the immediate period before hospitalization. At the time of exam she was alert and oriented to person , place, time, date, and situation. She reports during her hospital stay she woke up not knowing where she was or why she was there. She was told she got up during the night but does not remember. She was unable to recall 3 words after 5 minutes. She could not name presidents before Trump. She was unable to spell world backwards. She was able to accurately draw a clock. Medications and Allergies Allergies Allergy/AdvReac Type Severity Reaction Status Date / Time No Known Allergies Allergy Verified 02/22/17 02:57 Home Medications Medication Instructions Recorded Confirmed Last Taken Type Alendronate Sodium 35 mg PO 7XD 02/22/17 02/22/17 02/21/17 History Allopurinol [Zyloprim] 300 mg PO QDAY 02/22/17 02/22/17 02/21/17 History Carvedilol [Coreg] 6.25 mg PO BID 02/22/17 02/22/17 02/21/17 History Clopidogrel Bisulfate [Plavix] 75 mg PO DAILY 02/22/17 02/22/17 02/21/17 History Cyanocobalamin [Vitamin B-12] 1,000 mcg IM QMONTH 02/22/17 02/22/17 02/21/17 History Ferrous Gluconate [Fergon 240 MG 240 mg PO BID 02/22/17 02/22/17 02/21/17 History tab] Furosemide [Lasix] 20 mg PO QDAY 02/22/17 02/22/17 02/21/17 History Ipratropium/Albuterol Sulfate 20 - 100 mcg IH QID 02/22/17 02/22/17 02/21/17 History [Combivent Respimat Inhal [place]] Ipratropium/Albuterol Sulfate 20 - 100 mcg IH QID 02/22/17 02/22/17 02/21/17 History [Combivent Respimat] Lovastatin [Altoprev] 20 mg PO QPM 02/22/17 02/22/17 02/21/17 History Pantoprazole Sodium 40 mg PO PRN 02/22/17 02/22/17 02/21/17 History Polyethylene Glycol 600 300 tab PO DAILY 02/22/17 02/22/17 02/21/17 History Active Meds: Active Medications Acetaminophen (Tylenol) 650 mg PO Q4H PRN PRN Reason: Pain MILD(1-3)/Fever >100.5/[facility] Allopurinol (Zyloprim) 300 mg PO QDAY [facility] Last Admin: 02/26/17 11:14 Dose: 300 mg Bisacodyl (Dulcolax) 10 mg IN QDAY PRN PRN Reason: Constipation unrelieved by MOM Carvedilol (Coreg) 6.25 mg PO BID [facility] Last Admin: 02/26/17 11:14 Dose: 6.25 mg Ferrous Gluconate (Fergon) 324 mg PO BID [facility] Last Admin: 02/26/17 11:14 Dose: 324 mg Furosemide (Lasix) 20 mg PO QDAY [facility] Last Admin: 02/26/17 11:14 Dose: 20 mg Heparin Sodium (Porcine) (Heparin) 5,000 unit SUB-Q Q12HR [facility] Last Admin: 02/26/17 11:14 Dose: 5,000 unit Hydralazine HCl (Apresoline) 10 mg IV Q4HR PRN PRN Reason: Hypertension Magnesium Hydroxide (Milk Of Magnesia) 30 ml PO Q4H PRN PRN Reason: Constipation Last Admin: 02/25/17 19:00 Dose: 30 ml Miscellaneous Medication (Polyethylene Glycol 600 [Polyethylene Glycol 600]) 300 tab PO DAILY [facility] Ondansetron HCl (Zofran) 4 mg IV Q8H PRN PRN Reason: N/V unrelieved by Reglan Pantoprazole Sodium (Protonix) 40 mg PO DAILY PRN PRN Reason: Acid reflux Last Admin: 02/24/17 14:38 Dose: 40 mg Simvastatin (Zocor) 10 mg PO QHS [facility] Last Admin: 02/25/17 22:10 Dose: 10 mg Past psychiatric history - Past Medical History Past Medical History: other (CHF and breast cancer) - past Psychiatric treatment and history psychiatric treatment history: none - Social History Social history: other (she denies alcohol or illicit substance use. She is a . Her 11 years ago after 47 years of marriage. She does not have children.) Mental Status Exam - Vital signs Last Vital Signs Temp 97.4 F L 02/26/17 15:59 Pulse 58 L 02/26/17 15:59 Resp 18 02/26/17 15:59 BP 135/77 02/26/17 15:59 Pulse Ox 99 02/26/17 15:59 - Exam Orientation: time, place, person Affect: normal Mood: appropriate Thought content: other (no suicidal or homicidal ideation) Thought Process: Intact Perceptions: none Speech: normal rate and pattern Concentration: focused Motor activity: normal Level of consciousness: alert Memory: Recent Impaired, Remote Impaired Sleep Symptoms: Wakes During Night Appetite: decreased Interaction: cooperative, pleasant Results Result Diagrams: 02/25/17 05:28 02/26/17 18:23 Abnormal lab results 02/24/17 02/24/17 02/26/17 Range/Units 01:35 01:35 08:25 Sodium 134 L (137-145) mmol/L Chloride 97.1 L (98-107) mmol/L BUN 20 H (7-17) mg/dL Creatinine 1.5 H (0.7-1.2) mg/dL CA 27-29 39 H (<38) U/mL CA 125 Antigen 269 H (<35) U/mL All other labs normal. Assessment and Plan Assessment and plan: Impression: altered mental status related to delirium from health conditions. Her symptoms of confusion were abrupt and immediately preceded hospitalization. No mental illness identified Assessing for dementia is challenging while she is experiencing signs of delirium Recommendation: Treatment of her medical conditions should decrease altered mental status gradually. We will follow to reassess mental status tomorrow Follow delirium precautions: 1. Frequently reorient patient and involve him/her in their care (simple explanations of procedures, tests, medications). 2. Lights on and shades open during daytime hours. 3. Try to avoid unnecessary interruptions to sleep during nighttime hours. 4. Obtain glasses, hearing aids from home if patient uses these at baseline. 5. Avoid medications that may exacerbate delirium (especially narcotics, benzodiazepines, barbiturates, ambien, lunesta, and medications with excessive anticholinergic properties).
--- NOTE | 2017-02-26 21:45 | Consultation ---
History of Present Illness - Reason for Consult Consult date: 02/26/17 - History of Present Illness Patient seen/examined, labs/notes reviewed, discussed a bit with patient. She is not able to absorb much info.Fluid cytology still pending results.both ca125 , and ca27-29, are high. Past History Past Medical History: other (breast CA, CHF) Past Surgical History: Other Social history: no significant social history Medications and Allergies Allergies Allergy/AdvReac Type Severity Reaction Status Date / Time No Known Allergies Allergy Verified 02/22/17 02:57 Home Medications Medication Instructions Recorded Confirmed Last Taken Type Alendronate Sodium 35 mg PO 7XD 02/22/17 02/22/17 02/21/17 History Allopurinol [Zyloprim] 300 mg PO QDAY 02/22/17 02/22/17 02/21/17 History Carvedilol [Coreg] 6.25 mg PO BID 02/22/17 02/22/17 02/21/17 History Clopidogrel Bisulfate [Plavix] 75 mg PO DAILY 02/22/17 02/22/17 02/21/17 History Cyanocobalamin [Vitamin B-12] 1,000 mcg IM QMONTH 02/22/17 02/22/17 02/21/17 History Ferrous Gluconate [Fergon 240 MG 240 mg PO BID 02/22/17 02/22/17 02/21/17 History tab] Furosemide [Lasix] 20 mg PO QDAY 02/22/17 02/22/17 02/21/17 History Ipratropium/Albuterol Sulfate 20 - 100 mcg IH QID 02/22/17 02/22/17 02/21/17 History [Combivent Respimat Inhal [place]] Ipratropium/Albuterol Sulfate 20 - 100 mcg IH QID 02/22/17 02/22/17 02/21/17 History [Combivent Respimat] Lovastatin [Altoprev] 20 mg PO QPM 02/22/17 02/22/17 02/21/17 History Pantoprazole Sodium 40 mg PO PRN 02/22/17 02/22/17 02/21/17 History Polyethylene Glycol 600 300 tab PO DAILY 02/22/17 02/22/17 02/21/17 History Active Meds: Active Medications Acetaminophen (Tylenol) 650 mg PO Q4H PRN PRN Reason: Pain MILD(1-3)/Fever >100.5/[facility] Allopurinol (Zyloprim) 300 mg PO QDAY [facility] Last Admin: 02/26/17 11:14 Dose: 300 mg Bisacodyl (Dulcolax) 10 mg [place] QDAY PRN PRN Reason: Constipation unrelieved by MOM Carvedilol (Coreg) 6.25 mg PO BID [facility] Last Admin: 02/26/17 11:14 Dose: 6.25 mg Ferrous Gluconate (Fergon) 324 mg PO BID [facility] Last Admin: 02/26/17 11:14 Dose: 324 mg Furosemide (Lasix) 20 mg PO QDAY [facility] Last Admin: 02/26/17 11:14 Dose: 20 mg Heparin Sodium (Porcine) (Heparin) 5,000 unit SUB-Q Q12HR [facility] Last Admin: 02/26/17 11:14 Dose: 5,000 unit Hydralazine HCl (Apresoline) 10 mg IV Q4HR PRN PRN Reason: Hypertension Magnesium Hydroxide (Milk Of Magnesia) 30 ml PO Q4H PRN PRN Reason: Constipation Last Admin: 02/25/17 19:00 Dose: 30 ml Miscellaneous Medication (Polyethylene Glycol 600 [Polyethylene Glycol 600]) 300 tab PO DAILY [facility] Ondansetron HCl (Zofran) 4 mg IV Q8H PRN PRN Reason: N/V unrelieved by Reglan Pantoprazole Sodium (Protonix) 40 mg PO DAILY PRN PRN Reason: Acid reflux Last Admin: 02/24/17 14:38 Dose: 40 mg Simvastatin (Zocor) 10 mg PO QHS [facility] Last Admin: 02/25/17 22:10 Dose: 10 mg Review of Systems Breasts: deferred Neurological: confusion Exam - Constitutional Vitals: Temp Pulse Resp BP Pulse Ox 98.1 F 61 17 142/69 98 02/26/17 21:40 02/26/17 21:40 02/26/17 21:40 02/26/17 21:40 02/26/17 21:40 General appearance: Present: no acute distress, well-nourished - EENT Eyes: Present: PERRL ENT: hearing intact, clear oral mucosa - Neck Neck: Present: supple, normal ROM - Respiratory Respiratory effort: normal Respiratory: bilateral: CTA - Cardiovascular Heart Sounds: Present: S1 & S2. Absent: rub, click - Extremities Extremities: pulses symmetrical, No edema Peripheral Pulses: within normal limits - Abdominal General gastrointestinal: Present: soft, non-tender, non-distended, normal bowel sounds Female genitourinary: Present: deferred - Rectal Rectal Exam: deferred - Integumentary Integumentary: Present: clear, warm, dry - Musculoskeletal Musculoskeletal: gait normal, strength equal bilaterally - Psychiatric Psychiatric: appropriate mood/affect - Neurologic Neurologic: CNII-XII intact, moves all extremities Results - Labs CBC & Chem 7: 02/25/17 05:28 02/26/17 18:23 Labs: Abnormal lab results 02/24/17 02/24/17 02/26/17 Range/Units 01:35 01:35 08:25 Sodium 134 L (137-145) mmol/L Chloride 97.1 L (98-107) mmol/L BUN 20 H (7-17) mg/dL Creatinine 1.5 H (0.7-1.2) mg/dL CA 27-29 39 H (<38) U/mL CA 125 Antigen 269 H (<35) U/mL 02/26/17 Range/Units 18:23 Sodium (137-145) mmol/L Chloride (98-107) mmol/L BUN 20 H (7-17) mg/dL Creatinine 1.5 H (0.7-1.2) mg/dL CA 27-29 (<38) U/mL CA 125 Antigen (<35) U/mL Assessment and Plan - Patient Problems (1) Lymphadenopathy, thoracic Current Visit: Yes Status: Acute Plan to address problem: highly suspicious for mets from the previous left breast cancer. same as above. (2) Pleural effusion, right Current Visit: Yes Status: Acute Plan to address problem: Same as above,s/p a tap. , awaiting results. (3) Pulmonary nodules Current Visit: Yes Status: Acute Plan to address problem: See notes above.
[2017-02-26] MEDS: ZOCOR PO SCH (23:02)
[2017-02-27 08:08] LABS: Basophils % (Auto) 2.7 % (0.0-1.8); Eosinophils % (Auto) 7.1 % (0.0-4.3); Hematocrit 23.1 % (30.3-42.9); Hemoglobin 7.7 gm/dl (10.1-14.3); Mean Corpuscular HGB Conc 34 % (30-34); Mean Corpuscular Hemoglobin 32 pg (28-32); Mean Corpuscular Volume 97 fl (79-97); Platelet Count 122 K/mm3 (140-440); Red Blood Count 2.39 M/mm3 (3.65-5.03); Red Cell Distribution Width 16.6 % (13.2-15.2); White Blood Count 7.3 K/mm3 (4.5-11.0)
[2017-02-27 08:25] LABS: BUN/Creatinine Ratio 13.57; Calcium 8.6 mg/dL (8.4-10.2); Potassium 4.4 mmol/L (3.6-5.0)
--- NOTE | 2017-02-27 09:43 | XRay Report ---
Two-view chest: Followup pleural effusion. AP and lateral views obtained in a sitting position. Comparison is made to the most recent prior study of February 23. There is increased opacity at the right base consistent with known pleural effusion. There is most likely underlying pulmonary consolidation as previously seen on CT scan. The degree of opacity is slightly more than was apparent on February 23. There is continued mild blunting of left costophrenic angle but no significant change. The lungs otherwise appear generally clear bilaterally. Impressions: 1. Interval increase in right pleural effusion with probable persistent pulmonary consolidation. 2. Persistent small left effusion without interval change.
--- NOTE | 2017-02-27 10:36 | Progress Note ---
Subjective - Reason for Consult Consult date: 02/27/17 Reason for consult: Psychiatry Follow-up - Chief Complaint Chief complaint: "Hello" Ms. Em is an 87 year old female seen on the medical floor for evaluation of confusion/altered mental status. Today patient is calm and cooperative during assessment. She was able to tell me that she have a "lung issue" and that's why she was admitted to [facility]. We spoke about her brother who visit with her [facility]. She told me that she was for 40+ years. She ID'd the current [place] President, her , and recalled 1/3 numbers (7,11,19) within 5 mins. Her tractor trailer mechanic Patrica Keenan [phone] was at the bedside and confirmed the patient's answers reference her brother and late . Ms Keenan did confirm that the patient has been forgetful recently. Also, she stated that the patient experienced a fall recently with no injuries. She denies SI/HI's, AVH's , and depression symptoms. Mental Status Exam - Vital signs Last Vital Signs Temp 97.6 F 02/27/17 09:15 Pulse 62 02/27/17 09:15 Resp 16 02/27/17 09:15 BP 139/65 02/27/17 09:15 Pulse Ox 97 02/27/17 09:15 - Exam Narrative exam: MSE: Appearance: calm, cooperative Behavior: regular eye contact Speech: regular rate and tone Mood: "not to bad" Affect: congruent to mood Thought Process: linear Thought Content: denies HI/SI's and AVH's Motor Activity: sitting up in the bed Cognition: A/Ox 3 Insight: variable Judgment: variable Assessment and Plan Impression: AMS related to Delirium from health conditions. Today patient is calm and cooperative during assessment. No mental illness identified. NA 130. Recommendation: Treatment of her medical conditions should decrease AMS. Follow delirium precautions: 1. Frequently reorient patient and involve him/her in their care (simple explanations of procedures, tests, medications). 2. Lights on and shades open during daytime hours. 3. Try to avoid unnecessary interruptions to sleep during nighttime hours. 4. Obtain glasses, hearing aids from home if patient uses these at baseline. 5. Avoid medications that may exacerbate delirium (especially narcotics, benzodiazepines, barbiturates, ambien, lunesta, and medications with excessive anticholinergic properties).
[2017-02-27] MEDS: LASIX PO SCH (11:00)
[2017-02-27] MEDS: ZYLOPRIM PO SCH (11:00)
[2017-02-27] MEDS: COREG PO SCH ×2 (11:00→21:46)
[2017-02-27] MEDS: FERGON PO SCH ×2 (11:00→21:46)
--- NOTE | 2017-02-27 11:52 | Discharge Summary ---
Providers - Providers Date of Admission: 02/22/17 02:46 Date of discharge: 02/27/17 Attending physician: BARTOLO RIOS 02/22/17 08:14 Consult to Physician [CONS] Routine Consulting Provider: LEORA STRATTON Reason For Exam: metastatic cancer Place consult to:: onc Notified:: guerita service Phone number called:: [phone] Was contact made?: Yes If yes, spoke with:: almas Time called:: 08:38 02/25/17 14:52 Consult to Mental Health [CONS] Routine Reason For Exam: Dementia Place consult to:: Mental Health Notified:: Taye RN Phone number called:: [phone] Was contact made?: Yes If yes, spoke with:: [place]-mental health Time called:: 14:52 Primary care physician: [employer] Hospitalization Condition: Stable Hospital course: Discharge Diagnosis and management: Right pleural effusion. - Had thoracentesis and pleural fluid sent for analysis, to rule out malignancy. - Pathology report pending. Pulmonology following. Multiple pulmonary nodules bilaterally, suspicious for metastases. - awaiting path report from pleural fluid. Dr. Stratton following. Coronary artery disease. - No chest pain Chronic CHF. - On Lasix History of breast cancer. - suspicion of recurrence, wait for pathology report Hyperlipidemia - place on statin Possible dementia with behavioral change -consulted psych Jarvis on CKD stage 3 - improved now Disposition: [id number]/TX-06 HOME UNDER HOME [facility] Time spent for discharge: 32 minutes Core Measure Documentation - Palliative Care Palliative Care/ Comfort Measures: Not Applicable - Core Measures Any of the following diagnoses?: none Exam - Physical Exam Narrative exam: Gen appearance: Not in acute distress, HEENT: Normocephalic, atraumatic Neck: Supple, no JVD Lungs: Decreased breath sounds right lower lung field, no crackles, or wheezes. Heart: S1 and S2 regular, no murmurs, no gallops,no rubs Abdomen : Soft, non-tender, non-distended, normal bowel sounds Extremities :No edema, no clubbing or cyanosis Neuro: Awake, alert, oriented, normal speech, no focal neurological signs Psych: normal mood. - Constitutional Vitals: Temp Pulse Resp BP Pulse Ox 97.6 F 62 16 139/65 97 02/27/17 09:15 02/27/17 11:00 02/27/17 09:15 02/27/17 11:00 02/27/17 09:15 Plan Activity: advance as tolerated, fall precautions Weight Bearing Status: Non-Weight Bearing Diet: regular Follow up with: PRIMARY CARE, [Primary Care Provider] - 3-5 Days
[2017-02-27] MEDS: HEPARIN SUB-Q SCH (11:57)
--- NOTE | 2017-02-27 12:07 | Progress Note ---
Assessment and Plan CXR 02/27 = worsening R effusion Imp: 1. Pulm nodules/pleural effusion/mediastinal LAD/liver mass/retroperitoneal LAD -> probable malignancy 2. Hemoptysis 2/2 #1, better 3. TSERING vs. CKD 4. Thrombocytopenia 5. Normocytic anemia, prob chronic disease Rec: 1. Confirmed with pathology that they have the pleural fluid specimen -> f/u results when available 2. CXR shows mildly worsening R effusion; hold off on repeat thoracentesis as she is clinically stable pulm-harris; if any further worsening, and if effusion is indeed malignant would consider PleurX cath, which could be done inpatient vs. outpatient 3. Consider PRBCs 4. Needs home O2 evaluation prior to discharge 5. Reviewed [facility] records -> CT chest 01/2016 showed mediastinal LAD, RLL pleural- based nodule, small R effusion; was in [facility] 01/04 for TIA, MRI brain neg, and had CXR that showed moderate R effusion at that point Plan of care reviewed w/ patient and her caregiver, they understand/agree; apparently does not have any family Subjective Date of service: 02/27/17 Principal diagnosis: Pleural effusion Interval history: No events. Awake, alert. Coughed up an "old, dark blood clot" once, otherwise no complaints. On O2 2L NC. Active Medications Acetaminophen (Tylenol) 650 mg PO Q4H PRN PRN Reason: Pain MILD(1-3)/Fever >100.5/HOYOS Allopurinol (Zyloprim) 300 mg PO QDAY [facility] Last Admin: 02/27/17 11:00 Dose: 300 mg Bisacodyl (Dulcolax) 10 mg [place] QDAY PRN PRN Reason: Constipation unrelieved by MOM Carvedilol (Coreg) 6.25 mg PO BID [facility] Last Admin: 02/27/17 11:00 Dose: 6.25 mg Ferrous Gluconate (Fergon) 324 mg PO BID [facility] Last Admin: 02/27/17 11:00 Dose: 324 mg Furosemide (Lasix) 20 mg PO QDAY [facility] Last Admin: 02/27/17 11:00 Dose: 20 mg Heparin Sodium (Porcine) (Heparin) 5,000 unit SUB-Q Q12HR [facility] Last Admin: 02/27/17 11:57 Dose: Not Given Hydralazine HCl (Apresoline) 10 mg IV Q4HR PRN PRN Reason: Hypertension Magnesium Hydroxide (Milk Of Magnesia) 30 ml PO Q4H PRN PRN Reason: Constipation Last Admin: 02/25/17 19:00 Dose: 30 ml Miscellaneous Medication (Polyethylene Glycol 600 [Polyethylene Glycol 600]) 300 tab PO DAILY [facility] Ondansetron HCl (Zofran) 4 mg IV Q8H PRN PRN Reason: N/V unrelieved by Reglan Pantoprazole Sodium (Protonix) 40 mg PO DAILY PRN PRN Reason: Acid reflux Last Admin: 02/24/17 14:38 Dose: 40 mg Simvastatin (Zocor) 10 mg PO QHS [facility] Last Admin: 02/26/17 23:02 Dose: 10 mg Objective Vital Signs - 12hr 02/27/17 02/27/17 02/27/17 01:02 05:36 08:36 Temperature 98.2 F 98.7 F Pulse Rate 70 62 Respiratory 20 18 Rate Blood Pressure 128/62 141/64 O2 Sat by Pulse 98 98 96 Oximetry 02/27/17 02/27/17 09:15 11:00 Temperature 97.6 F Pulse Rate 62 62 Respiratory 16 Rate Blood Pressure 139/65 139/65 O2 Sat by Pulse 97 Oximetry Constitutional: no acute distress, alert Eyes: non-icteric ENT: oropharynx moist Effort: normal Ascultation: Right: diminished breath sounds (base) Cardiovascular: regular rate and rhythm (no mrg) Gastrointestinal: normoactive bowel sounds, soft, non-tender, non-distended Integumentary: normal Extremities: no cyanosis, no edema, pink and warm Neurologic: normal mental status, non-focal exam, pupils equal and round, CN II- XII normal Psychiatric: mood appropriate, affect normal CBC and BMP: 02/27/17 07:18 02/27/17 07:18 ABG, PT/INR, D-dimer: PT/INR, D-dimer PT 14.0 Sec. (12.2-14.9) 02/21/17 20:44 INR 1.03 (0.87-1.13) 02/21/17 20:44 D-Dimer 1308.61 ng/mlDDU (0-234) H 02/21/17 20:44 Abnormal lab findings: Abnormal Labs 02/22/17 02/22/17 02/23/17 03:05 08:55 06:33 RBC 2.56 L Hgb 8.2 L Hct 25.1 L MCV 98 H RDW 17.1 H Plt Count [place] % (Auto) 11.7 H Eos % (Auto) 7.3 H Baso % (Auto) 2.9 H [place] # 1.0 H Eos # 0.6 H Baso # 0.2 H Sodium Chloride BUN Creatinine Alkaline Phosphatase Lactate Dehydrogenase Total Creatine Kinase 20 L 28 L CK-MB (CK-2) Rel Index 7.0 H 6.4 H Total Protein Albumin CA 27-29 CA 125 Antigen 02/23/17 02/23/17 02/24/17 06:33 19:11 01:35 RBC Hgb Hct MCV RDW Plt Count [place] % (Auto) Eos % (Auto) Baso % (Auto) [place] # Eos # Baso # Sodium Chloride BUN Creatinine 1.3 H Alkaline Phosphatase 140 H Lactate Dehydrogenase 239 H Total Creatine Kinase CK-MB (CK-2) Rel Index Total Protein 6.2 L Albumin 3.5 L CA 27-29 39 H CA 125 Antigen 02/24/17 02/25/17 02/25/17 01:35 05:28 05:28 RBC 2.49 L Hgb 7.9 L Hct 24.4 L MCV 98 H RDW 17.3 H Plt Count 136 L [place] % (Auto) Eos % (Auto) Baso % (Auto) [place] # Eos # Baso # Sodium 134 L Chloride 97.5 L BUN 20 H Creatinine 1.8 H Alkaline Phosphatase Lactate Dehydrogenase Total Creatine Kinase CK-MB (CK-2) Rel Index Total Protein Albumin CA 27-29 CA 125 Antigen 269 H 02/26/17 02/26/17 02/27/17 08:25 18:23 07:18 RBC 2.39 L Hgb 7.7 L Hct 23.1 L MCV RDW 16.6 H Plt Count 122 L [place] % (Auto) 12.4 H Eos % (Auto) 7.1 H Baso % (Auto) 2.7 H [place] # 0.9 H Eos # 0.5 H Baso # 0.2 H Sodium 134 L Chloride 97.1 L BUN 20 H 20 H Creatinine 1.5 H 1.5 H Alkaline Phosphatase Lactate Dehydrogenase Total Creatine Kinase CK-MB (CK-2) Rel Index Total Protein Albumin CA 27-29 CA 125 Antigen 02/27/17 07:18 RBC Hgb Hct MCV RDW Plt Count [place] % (Auto) Eos % (Auto) Baso % (Auto) [place] # Eos # Baso # Sodium 130 L Chloride 94.0 L BUN 19 H Creatinine 1.4 H Alkaline Phosphatase Lactate Dehydrogenase Total Creatine Kinase CK-MB (CK-2) Rel Index Total Protein Albumin CA 27-29 CA 125 Antigen Chest x-ray: report reviewed, image reviewed
--- NOTE | 2017-02-27 16:33 | Progress Note ---
Assessment and Plan Right pleural effusion. - Had thoracentesis and pleural fluid sent for analysis, to rule out malignancy. - Pathology report pending. Pulmonology following. - cxr showed increase in pleural effusion Multiple pulmonary nodules bilaterally, suspicious for metastases. - awaiting path report from pleural fluid. Dr. Buck following. Coronary artery disease. - No chest pain Chronic CHF. - On Lasix History of breast cancer. - suspicion of recurrence, wait for pathology report Hyperlipidemia - place on statin Possible dementia with behavioral change -consulted psych Full CODE STATUS DVT prophylaxis. cont Heparin subcut. Disposition: Family and pt want SNF placement Subjective Date of service: 02/27/17 Principal diagnosis: Pleural effusion Interval history: Patient seen and examined. Medical records and medication list reviewed. coughed out blood today, cxr showed recurrence of pleural effusion Discussed plan of care at bedside with patient. also discussed the plan with her [id number] by phone Objective - Exam Narrative Exam: Gen appearance: Not in acute distress, HEENT: Normocephalic, atraumatic Neck: Supple, no JVD Lungs: Decreased breath sounds right lower lung field, no crackles, or wheezes. Heart: S1 and S2 regular, no murmurs, no gallops,no rubs Abdomen : Soft, non-tender, non-distended, normal bowel sounds Extremities :No edema, no clubbing or cyanosis Neuro: Awake, alert, oriented, normal speech, no focal neurological signs Psych: normal mood. - Constitutional Vitals: Vital Signs - 12hr 02/27/17 02/27/17 02/27/17 05:36 08:36 09:15 Temperature 98.7 F 97.6 F Pulse Rate 62 62 Respiratory 18 16 Rate Blood Pressure 141/64 139/65 O2 Sat by Pulse 98 96 97 Oximetry 02/27/17 02/27/17 02/27/17 11:00 12:58 16:21 Temperature 97.8 F 98.0 F Pulse Rate 62 60 68 Respiratory 16 16 Rate Blood Pressure 139/65 153/65 152/67 O2 Sat by Pulse 97 98 Oximetry - Labs CBC & Chem 7: 02/27/17 07:18 02/27/17 07:18 Labs: Abnormal lab results 02/26/17 02/27/17 02/27/17 Range/Units 18:23 07:18 07:18 RBC 2.39 L (3.65-5.03) M/mm3 Hgb 7.7 L (10.1-14.3) gm/dl Hct 23.1 L (30.3-42.9) % RDW 16.6 H (13.2-15.2) % Plt Count 122 L (140-440) K/mm3 [place] % (Auto) 12.4 H (0.0-7.3) % Eos % (Auto) 7.1 H (0.0-4.3) % Baso % (Auto) 2.7 H (0.0-1.8) % [place] # 0.9 H (0.0-0.8) K/mm3 Eos # 0.5 H (0.0-0.4) K/mm3 Baso # 0.2 H (0.0-0.1) K/mm3 Sodium 130 L (137-145) mmol/L Chloride 94.0 L (98-107) mmol/L BUN 20 H 19 H (7-17) mg/dL Creatinine 1.5 H 1.4 H (0.7-1.2) mg/dL
--- NOTE | 2017-02-27 19:11 | Consultation ---
History of Present Illness - Reason for Consult Consult date: 02/27/17 - History of Present Illness Patient seen/examined, VSS, afebrile.No new issues at this time.She is scheduled for d/c tomorrow. The path report still not out.I have d/w the primary.regarding f/up. Past History Past Medical History: other (CHF and breast cancer) Past Surgical History: Other Social history: other (she denies alcohol or illicit substance use. She is a . Her 11 years ago after 47 years of marriage. She does not have children.) Medications and Allergies Allergies Allergy/AdvReac Type Severity Reaction Status Date / Time No Known Allergies Allergy Verified 02/22/17 02:57 Home Medications Medication Instructions Recorded Confirmed Last Taken Type Alendronate Sodium 35 mg PO 7XD 02/22/17 02/22/17 02/21/17 History Allopurinol [Zyloprim] 300 mg PO QDAY 02/22/17 02/22/17 02/21/17 History Carvedilol [Coreg] 6.25 mg PO BID 02/22/17 02/22/17 02/21/17 History Cyanocobalamin [Vitamin B-12] 1,000 mcg IM QMONTH 02/22/17 02/22/17 02/21/17 History Ferrous Gluconate [Fergon 240 MG 240 mg PO BID 02/22/17 02/22/17 02/21/17 History tab] Furosemide [Lasix TAB] 20 mg PO QDAY 02/22/17 02/22/17 02/21/17 History Ipratropium/Albuterol Sulfate 20 - 100 mcg IH QID 02/22/17 02/22/17 02/21/17 History [Combivent Respimat] Ipratropium/Albuterol Sulfate 20 - 100 mcg IH QID 02/22/17 02/22/17 02/21/17 History [Combivent Respimat] Lovastatin [Altoprev] 20 mg PO QPM 02/22/17 02/22/17 02/21/17 History Pantoprazole Sodium 40 mg PO PRN 02/22/17 02/22/17 02/21/17 History Polyethylene Glycol 600 300 tab PO DAILY 02/22/17 02/22/17 02/21/17 History Active Meds: Active Medications Acetaminophen (Tylenol) 650 mg PO Q4H PRN PRN Reason: Pain MILD(1-3)/Fever >100.5/HOYOS Allopurinol (Zyloprim) 300 mg PO QDAY [facility] Last Admin: 02/27/17 11:00 Dose: 300 mg Bisacodyl (Dulcolax) 10 mg [place] QDAY PRN PRN Reason: Constipation unrelieved by MOM Carvedilol (Coreg) 6.25 mg PO BID [facility] Last Admin: 02/27/17 11:00 Dose: 6.25 mg Ferrous Gluconate (Fergon) 324 mg PO BID [facility] Last Admin: 02/27/17 11:00 Dose: 324 mg Furosemide (Lasix) 20 mg PO QDAY [facility] Last Admin: 02/27/17 11:00 Dose: 20 mg Hydralazine HCl (Apresoline) 10 mg IV Q4HR PRN PRN Reason: Hypertension Magnesium Hydroxide (Milk Of Magnesia) 30 ml PO Q4H PRN PRN Reason: Constipation Last Admin: 02/25/17 19:00 Dose: 30 ml Miscellaneous Medication (Polyethylene Glycol 600 [Polyethylene Glycol 600]) 300 tab PO DAILY [facility] Ondansetron HCl (Zofran) 4 mg IV Q8H PRN PRN Reason: N/V unrelieved by Reglan Pantoprazole Sodium (Protonix) 40 mg PO DAILY PRN PRN Reason: Acid reflux Last Admin: 02/24/17 14:38 Dose: 40 mg Simvastatin (Zocor) 10 mg PO QHS [facility] Last Admin: 02/26/17 23:02 Dose: 10 mg Review of Systems Breasts: deferred Exam - Constitutional Vitals: Temp Pulse Resp BP Pulse Ox 98.0 F 68 16 152/67 98 02/27/17 16:21 02/27/17 16:21 02/27/17 16:21 02/27/17 16:21 02/27/17 16:21 General appearance: Present: no acute distress, well-nourished - EENT Eyes: Present: PERRL ENT: hearing intact, clear oral mucosa - Neck Neck: Present: supple, normal ROM - Respiratory Respiratory effort: normal Respiratory: bilateral: CTA - Cardiovascular Heart Sounds: Present: S1 & S2. Absent: rub, click - Extremities Extremities: pulses symmetrical, No edema Peripheral Pulses: within normal limits - Abdominal General gastrointestinal: Present: soft, non-tender, non-distended, normal bowel sounds Female genitourinary: Present: deferred - Rectal Rectal Exam: deferred - Integumentary Integumentary: Present: clear, warm, dry - Musculoskeletal Musculoskeletal: gait normal, strength equal bilaterally - Psychiatric Psychiatric: appropriate mood/affect, intact judgment & insight - Neurologic Neurologic: CNII-XII intact, moves all extremities Results - Labs CBC & Chem 7: 02/27/17 07:18 02/27/17 07:18 Labs: Abnormal lab results 02/26/17 02/27/17 02/27/17 Range/Units 18:23 07:18 07:18 RBC 2.39 L (3.65-5.03) M/mm3 Hgb 7.7 L (10.1-14.3) gm/dl Hct 23.1 L (30.3-42.9) % RDW 16.6 H (13.2-15.2) % Plt Count 122 L (140-440) K/mm3 [place] % (Auto) 12.4 H (0.0-7.3) % Eos % (Auto) 7.1 H (0.0-4.3) % Baso % (Auto) 2.7 H (0.0-1.8) % [place] # 0.9 H (0.0-0.8) K/mm3 Eos # 0.5 H (0.0-0.4) K/mm3 Baso # 0.2 H (0.0-0.1) K/mm3 Sodium 130 L (137-145) mmol/L Chloride 94.0 L (98-107) mmol/L BUN 20 H 19 H (7-17) mg/dL Creatinine 1.5 H 1.4 H (0.7-1.2) mg/dL Assessment and Plan - Patient Problems (1) Lymphadenopathy, thoracic Current Visit: Yes Status: Acute Plan to address problem: highly suspicious for mets from the previous left breast cancer. same as above. (2) Pleural effusion, right Current Visit: Yes Status: Acute Plan to address problem: Same as above,s/p a tap. , awaiting results. (3) Pulmonary nodules Current Visit: Yes Status: Acute Plan to address problem: See notes above.
[2017-02-27] MEDS: ZOCOR PO SCH (21:46)
[2017-02-28] MEDS: TYLENOL PO PRN (02:39)
[2017-02-28 04:37] LABS: Eosinophils % (Auto) 7.5 % (0.0-4.3); Hematocrit 23.8 % (30.3-42.9); Hemoglobin 7.8 gm/dl (10.1-14.3); Mean Corpuscular HGB Conc 33 % (30-34); Mean Corpuscular Hemoglobin 32 pg (28-32); Mean Corpuscular Volume 97 fl (79-97); Platelet Count 128 K/mm3 (140-440); Red Blood Count 2.46 M/mm3 (3.65-5.03); Red Cell Distribution Width 17.2 % (13.2-15.2); White Blood Count 7.4 K/mm3 (4.5-11.0)
[2017-02-28 04:55] LABS: BUN/Creatinine Ratio 12.14; Potassium 4.5 mmol/L (3.6-5.0)
[2017-02-28] MEDS: COREG PO SCH ×2 (10:25→22:24)
[2017-02-28] MEDS: LASIX PO SCH (10:26)
[2017-02-28] MEDS: ZYLOPRIM PO SCH (10:26)
[2017-02-28] MEDS: FERGON PO SCH ×2 (10:27→22:24)
--- NOTE | 2017-02-28 13:23 | Progress Note ---
Assessment and Plan CXR 02/27 = worsening R effusion Imp: 1. Pulm nodules/pleural effusion/mediastinal LAD/liver mass/retroperitoneal LAD -> probable malignancy 2. Hemoptysis 2/2 #1, better 3. TSERING vs. CKD 4. Thrombocytopenia 5. Normocytic anemia, prob chronic disease Rec: 1. Confirmed with pathology that they have the pleural fluid specimen -> f/u results when available (called 02/28/17, still not back yet) 2. CXR shows mildly worsening R effusion; her plan is to go to SNF and possibly hospice, so recommend PleurX cath for palliation of her SOB/cough and to help prevent hospital admissions, she is agreeable; D/w Dr. Rockwell who agrees 3. Consider PRBCs 4. Reviewed [facility] records -> CT chest 01/2016 showed mediastinal LAD, RLL pleural- based nodule, small R effusion; was in [facility] 01/04 for TIA, MRI brain neg, and had CXR that showed moderate R effusion at that point Plan of care reviewed w/ patient and her caregiver, they understand/agree; apparently does not have any family Subjective Date of service: 02/28/17 Principal diagnosis: Pleural effusion Interval history: No events. Awake, alert. Some cough which is slightly worse but no hemoptysis. On O2 2L NC. Active Medications Acetaminophen (Tylenol) 650 mg PO Q4H PRN PRN Reason: Pain MILD(1-3)/Fever >100.5/HOYOS Last Admin: 02/28/17 02:39 Dose: 650 mg Allopurinol (Zyloprim) 300 mg PO QDAY [facility] Last Admin: 02/28/17 10:26 Dose: 300 mg Bisacodyl (Dulcolax) 10 mg [place] QDAY PRN PRN Reason: Constipation unrelieved by MOM Carvedilol (Coreg) 6.25 mg PO BID [facility] Last Admin: 02/28/17 10:25 Dose: 6.25 mg Ferrous Gluconate (Fergon) 324 mg PO BID [facility] Last Admin: 02/28/17 10:27 Dose: 324 mg Furosemide (Lasix) 20 mg PO QDAY [facility] Last Admin: 02/28/17 10:26 Dose: 20 mg Hydralazine HCl (Apresoline) 10 mg IV Q4HR PRN PRN Reason: Hypertension Magnesium Hydroxide (Milk Of Magnesia) 30 ml PO Q4H PRN PRN Reason: Constipation Last Admin: 02/25/17 19:00 Dose: 30 ml Miscellaneous Medication (Polyethylene Glycol 600 [Polyethylene Glycol 600]) 300 tab PO DAILY [facility] Ondansetron HCl (Zofran) 4 mg IV Q8H PRN PRN Reason: N/V unrelieved by Reglan Pantoprazole Sodium (Protonix) 40 mg PO DAILY PRN PRN Reason: Acid reflux Last Admin: 02/24/17 14:38 Dose: 40 mg Simvastatin (Zocor) 10 mg PO QHS [facility] Last Admin: 02/27/17 21:46 Dose: 10 mg Objective Vital Signs - 12hr 02/28/17 02/28/17 02/28/17 02:39 05:44 10:00 Temperature 97.7 F Pulse Rate 64 71 Respiratory 20 18 Rate Blood Pressure 121/60 O2 Sat by Pulse 20 L 99 Oximetry 02/28/17 02/28/17 02/28/17 10:11 10:25 12:50 Temperature 97.6 F 97.8 F Pulse Rate 61 61 51 L Respiratory 16 18 Rate Blood Pressure 130/73 130/73 150/69 O2 Sat by Pulse 95 95 Oximetry Constitutional: no acute distress, alert Eyes: non-icteric ENT: oropharynx moist Effort: normal Ascultation: Right: diminished breath sounds (base) Cardiovascular: regular rate and rhythm (no mrg) Gastrointestinal: normoactive bowel sounds, soft, non-tender, non-distended Integumentary: normal Extremities: no cyanosis, no edema, pink and warm Neurologic: normal mental status, non-focal exam, pupils equal and round, CN II- XII normal Psychiatric: mood appropriate, affect normal CBC and BMP: 02/28/17 04:05 02/28/17 04:05 ABG, PT/INR, D-dimer: PT/INR, D-dimer PT 14.0 Sec. (12.2-14.9) 02/21/17 20:44 INR 1.03 (0.87-1.13) 02/21/17 20:44 D-Dimer 1308.61 ng/mlDDU (0-234) H 02/21/17 20:44 Abnormal lab findings: Abnormal Labs 02/22/17 02/22/17 02/23/17 03:05 08:55 06:33 RBC 2.56 L Hgb 8.2 L Hct 25.1 L MCV 98 H RDW 17.1 H Plt Count [place] % (Auto) 11.7 H Eos % (Auto) 7.3 H Baso % (Auto) 2.9 H [place] # 1.0 H Eos # 0.6 H Baso # 0.2 H Sodium Chloride BUN Creatinine Alkaline Phosphatase Lactate Dehydrogenase Total Creatine Kinase 20 L 28 L CK-MB (CK-2) Rel Index 7.0 H 6.4 H Total Protein Albumin CA 27-29 CA 125 Antigen 02/23/17 02/23/17 02/24/17 06:33 19:11 01:35 RBC Hgb Hct MCV RDW Plt Count [place] % (Auto) Eos % (Auto) Baso % (Auto) [place] # Eos # Baso # Sodium Chloride BUN Creatinine 1.3 H Alkaline Phosphatase 140 H Lactate Dehydrogenase 239 H Total Creatine Kinase CK-MB (CK-2) Rel Index Total Protein 6.2 L Albumin 3.5 L CA 27-29 39 H CA 125 Antigen 02/24/17 02/25/17 02/25/17 01:35 05:28 05:28 RBC 2.49 L Hgb 7.9 L Hct 24.4 L MCV 98 H RDW 17.3 H Plt Count 136 L [place] % (Auto) Eos % (Auto) Baso % (Auto) [place] # Eos # Baso # Sodium 134 L Chloride 97.5 L BUN 20 H Creatinine 1.8 H Alkaline Phosphatase Lactate Dehydrogenase Total Creatine Kinase CK-MB (CK-2) Rel Index Total Protein Albumin CA 27-29 CA 125 Antigen 269 H 02/26/17 02/26/17 02/27/17 08:25 18:23 07:18 RBC 2.39 L Hgb 7.7 L Hct 23.1 L MCV RDW 16.6 H Plt Count 122 L [place] % (Auto) 12.4 H Eos % (Auto) 7.1 H Baso % (Auto) 2.7 H [place] # 0.9 H Eos # 0.5 H Baso # 0.2 H Sodium 134 L Chloride 97.1 L BUN 20 H 20 H Creatinine 1.5 H 1.5 H Alkaline Phosphatase Lactate Dehydrogenase Total Creatine Kinase CK-MB (CK-2) Rel Index Total Protein Albumin CA 27-29 CA 125 Antigen 08/05/0602/28/17 02/28/17 07:18 04:05 04:05 RBC 2.46 L Hgb 7.8 L Hct 23.8 L MCV RDW 17.2 H Plt Count 128 L [place] % (Auto) 13.3 H Eos % (Auto) 7.5 H Baso % (Auto) 3.0 H [place] # 1.0 H Eos # 0.6 H Baso # 0.2 H Sodium 130 L 133 L Chloride 94.0 L 96.0 L BUN 19 H Creatinine 1.4 H 1.4 H Alkaline Phosphatase Lactate Dehydrogenase Total Creatine Kinase CK-MB (CK-2) Rel Index Total Protein Albumin CA 27-29 CA 125 Antigen Chest x-ray: report reviewed, image reviewed (worsening R effusion)
--- NOTE | 2017-02-28 13:59 | Event Note ---
Date: 02/28/17 Spoke w/Dr. Rockwell re: PleurX catheter. We agreed that another attempt at near-complete drainage via thoracentesis is warranted. Should the effusion recur after that, then a PleurX catheter can be placed.
--- NOTE | 2017-02-28 15:30 | XRay Report ---
Portable chest: Clinical findings of chest infection; shortness of breath. The right lung base is opaque with pleural thickening along the lateral margin. The upper portion of the right lung as well as the left lung appears generally clear. The interstitial pattern is slightly prominent there is no overt vascular congestion. There are surgical clips in the left axilla however the breast is identified. I have no prior study for comparison. Impressions: Right pleural effusion and probable basilar consolidation.
--- NOTE | 2017-02-28 16:50 | Progress Note ---
Assessment and Plan Right pleural effusion. - Had thoracentesis and pleural fluid sent for analysis for possible malignancy. - Pathology report pending. Pulmonology following. - cxr showed increase in pleural effusion - plan for another thoracenthesis Multiple pulmonary nodules bilaterally, suspicious for metastases. - awaiting path report from pleural fluid. Dr. Buck following. Coronary artery disease. - No chest pain Chronic CHF. - On Lasix History of breast cancer. - suspicion of recurrence, wait for pathology report Hyperlipidemia - place on statin Possible dementia with behavioral change - suspected by history -consulted psych, patient does not have dementia - had intermittent episodes of delirium - cont supportive care Acute nose bleed - resolved, will get PT/INR - discussed with pt about blood transfusion Full CODE STATUS DVT prophylaxis. SCD. Disposition: Family and pt want SNF placement Subjective Date of service: 02/28/17 Principal diagnosis: Pleural effusion Interval history: Patient seen and examined. Medical records and medication list reviewed. had nose bleed today, cxr showed recurrence of pleural effusion discussed with Dr. cheek and Hu Herring, she will get another thoracenthesis to drain pleural fluid Discussed plan of care at bedside with patient. pathology report still pending also discussed the plan with her [id number] by phone and with caregiver Objective - Exam Narrative Exam: Gen appearance: Not in acute distress, HEENT: Normocephalic, atraumatic Neck: Supple, no JVD Lungs: Decreased breath sounds right lower lung field, no crackles, or wheezes. Heart: S1 and S2 regular, no murmurs, no gallops,no rubs Abdomen : Soft, non-tender, non-distended, normal bowel sounds Extremities :No edema, no clubbing or cyanosis Neuro: Awake, alert, oriented, normal speech, no focal neurological signs Psych: normal mood. - Constitutional Vitals: Vital Signs - 12hr 02/28/17 02/28/17 02/28/17 05:44 10:00 10:11 Temperature 97.7 F 97.6 F Pulse Rate 64 71 61 Respiratory 18 16 Rate Blood Pressure 121/60 130/73 O2 Sat by Pulse 20 L 99 95 Oximetry 02/28/17 02/28/17 10:25 12:50 Temperature 97.8 F Pulse Rate 61 51 L Respiratory 18 Rate Blood Pressure 130/73 150/69 O2 Sat by Pulse 95 Oximetry - Labs CBC & Chem 7: 02/28/17 04:05 02/28/17 04:05 Labs: Abnormal lab results 02/28/17 02/28/17 Range/Units 04:05 04:05 RBC 2.46 L (3.65-5.03) M/mm3 Hgb 7.8 L (10.1-14.3) gm/dl Hct 23.8 L (30.3-42.9) % RDW 17.2 H (13.2-15.2) % Plt Count 128 L (140-440) K/mm3 [place] % (Auto) 13.3 H (0.0-7.3) % Eos % (Auto) 7.5 H (0.0-4.3) % Baso % (Auto) 3.0 H (0.0-1.8) % [place] # 1.0 H (0.0-0.8) K/mm3 Eos # 0.6 H (0.0-0.4) K/mm3 Baso # 0.2 H (0.0-0.1) K/mm3 Sodium 133 L (137-145) mmol/L Chloride 96.0 L (98-107) mmol/L Creatinine 1.4 H (0.7-1.2) mg/dL
--- NOTE | 2017-02-28 17:05 | Progress Note ---
Subjective - Reason for Consult Consult date: 02/28/17 Reason for consult: follow up - Chief Complaint Chief complaint: "This has been the worst day." Ms. mE is an 87 year old female seen on the medical floor for evaluation of confusion/altered mental status. Today patient is calm and cooperative during assessment. She reported restless sleep last night because she was planning her day for today and being discharged. She states the whole day has been horrible because she found out she has cancer. She stated she only wants comfort care if she has to go through repeat thoracentesis procedures. She was making the decision about having a blood transfusion at the time I entered her room. She has her brother and [id number] as her proxy. She wants Patrica Keenan, her friend, as her Healthcare POA. She is concerned she will not be able to make the changes but wants to soon. She became tearful twice during the interview and stated she would be happy to be with her and that she is "ready to go" when time. Mental Status Exam - Vital signs Last Vital Signs Temp 97.8 F 02/28/17 12:50 Pulse 51 L 02/28/17 12:50 Resp 18 02/28/17 12:50 BP 150/69 02/28/17 12:50 Pulse Ox 95 02/28/17 12:50 Assessment and Plan Narrative exam: MSE: Appearance: calm, cooperative Behavior: regular eye contact Speech: regular rate and tone Mood: horrible Affect: congruent to mood Thought Process: linear Thought Content: denies HI/SI's and AVH's Motor Activity: sitting up in the bed Cognition: A/Ox 3 Insight: variable Judgment: variable Assessment and Plan Impression: AMS related to Delirium from health conditions. Today patient is calm and cooperative during assessment. No mental illness identified. In light of being told she has cancer, she talked about her and her wishes. She does not report suicidal ideation. Recommendation: Treatment of her medical conditions should decrease AMS. Patient would like information about Healthcare POA and living will Follow delirium precautions: 1. Frequently reorient patient and involve him/her in their care (simple explanations of procedures, tests, medications). 2. Lights on and shades open during daytime hours. 3. Try to avoid unnecessary interruptions to sleep during nighttime hours. 4. Obtain glasses, hearing aids from home if patient uses these at baseline. 5. Avoid medications that may exacerbate delirium (especially narcotics, benzodiazepines, barbiturates, ambien, lunesta, and medications with excessive anticholinergic properties).
--- NOTE | 2017-02-28 21:36 | Consultation ---
History of Present Illness - Reason for Consult Consult date: 02/28/17 - History of Present Illness Patient seen/examined, record/notes reviewed, no mention of the cytology report. I have spoken to patient who stays confused, and to the family.Still awaiting the path report, then will have a conclusive discussion with patient/ family. Past History Past Medical History: other (CHF and breast cancer) Past Surgical History: Other Social history: other (she denies alcohol or illicit substance use. She is a . Her 11 years ago after 47 years of marriage. She does not have children.) Medications and Allergies Allergies Allergy/AdvReac Type Severity Reaction Status Date / Time No Known Allergies Allergy Verified 02/22/17 02:57 Home Medications Medication Instructions Recorded Confirmed Last Taken Type Alendronate Sodium 35 mg PO 7XD 02/22/17 02/22/17 02/21/17 History Allopurinol [Zyloprim] 300 mg PO QDAY 02/22/17 02/22/17 02/21/17 History Carvedilol [Coreg] 6.25 mg PO BID 02/22/17 02/22/17 02/21/17 History Cyanocobalamin [Vitamin B-12] 1,000 mcg IM QMONTH 02/22/17 02/22/17 02/21/17 History Ferrous Gluconate [Fergon 240 MG 240 mg PO BID 02/22/17 02/22/17 02/21/17 History tab] Furosemide [Lasix TAB] 20 mg PO QDAY 02/22/17 02/22/17 02/21/17 History Ipratropium/Albuterol Sulfate 20 - 100 mcg IH QID 02/22/17 02/22/17 02/21/17 History [Combivent Respimat] Ipratropium/Albuterol Sulfate 20 - 100 mcg IH QID 02/22/17 02/22/17 02/21/17 History [Combivent Respimat] Lovastatin [Altoprev] 20 mg PO QPM 02/22/17 02/22/17 02/21/17 History Pantoprazole Sodium 40 mg PO PRN 02/22/17 02/22/17 02/21/17 History Polyethylene Glycol 600 300 tab PO DAILY 02/22/17 02/22/17 02/21/17 History Active Meds: Active Medications Acetaminophen (Tylenol) 650 mg PO Q4H PRN PRN Reason: Pain MILD(1-3)/Fever >100.5/HOYOS Last Admin: 02/28/17 02:39 Dose: 650 mg Allopurinol (Zyloprim) 300 mg PO QDAY [facility] Last Admin: 02/28/17 10:26 Dose: 300 mg Bisacodyl (Dulcolax) 10 mg [place] QDAY PRN PRN Reason: Constipation unrelieved by MOM Carvedilol (Coreg) 6.25 mg PO BID [facility] Last Admin: 02/28/17 10:25 Dose: 6.25 mg Ferrous Gluconate (Fergon) 324 mg PO BID [facility] Last Admin: 02/28/17 10:27 Dose: 324 mg Furosemide (Lasix) 20 mg PO QDAY [facility] Last Admin: 02/28/17 10:26 Dose: 20 mg Hydralazine HCl (Apresoline) 10 mg IV Q4HR PRN PRN Reason: Hypertension Magnesium Hydroxide (Milk Of Magnesia) 30 ml PO Q4H PRN PRN Reason: Constipation Last Admin: 02/25/17 19:00 Dose: 30 ml Miscellaneous Medication (Polyethylene Glycol 600 [Polyethylene Glycol 600]) 300 tab PO DAILY [facility] Ondansetron HCl (Zofran) 4 mg IV Q8H PRN PRN Reason: N/V unrelieved by Reglan Pantoprazole Sodium (Protonix) 40 mg PO DAILY PRN PRN Reason: Acid reflux Last Admin: 02/24/17 14:38 Dose: 40 mg Simvastatin (Zocor) 10 mg PO QHS [facility] Last Admin: 02/27/17 21:46 Dose: 10 mg Review of Systems Breasts: deferred Neurological: confusion Exam - Constitutional Vitals: Temp Pulse Resp BP Pulse Ox 97.9 F 72 14 146/64 96 02/28/17 21:28 02/28/17 21:28 02/28/17 21:28 02/28/17 21:28 02/28/17 21:28 General appearance: Present: no acute distress, well-nourished - EENT Eyes: Present: PERRL ENT: hearing intact, clear oral mucosa - Neck Neck: Present: supple, normal ROM - Respiratory Respiratory effort: normal Respiratory: bilateral: CTA - Cardiovascular Heart Sounds: Present: S1 & S2. Absent: rub, click - Extremities Extremities: pulses symmetrical, No edema Peripheral Pulses: within normal limits - Abdominal General gastrointestinal: Present: soft, non-tender, non-distended, normal bowel sounds Female genitourinary: Present: deferred - Rectal Rectal Exam: deferred - Integumentary Integumentary: Present: clear, warm, dry - Musculoskeletal Musculoskeletal: gait normal, strength equal bilaterally - Psychiatric Psychiatric: appropriate mood/affect - Neurologic Neurologic: CNII-XII intact, moves all extremities Results - Labs CBC & Chem 7: 02/28/17 04:05 02/28/17 04:05 Labs: Abnormal lab results 02/28/17 02/28/17 Range/Units 04:05 04:05 RBC 2.46 L (3.65-5.03) M/mm3 Hgb 7.8 L (10.1-14.3) gm/dl Hct 23.8 L (30.3-42.9) % RDW 17.2 H (13.2-15.2) % Plt Count 128 L (140-440) K/mm3 [place] % (Auto) 13.3 H (0.0-7.3) % Eos % (Auto) 7.5 H (0.0-4.3) % Baso % (Auto) 3.0 H (0.0-1.8) % [place] # 1.0 H (0.0-0.8) K/mm3 Eos # 0.6 H (0.0-0.4) K/mm3 Baso # 0.2 H (0.0-0.1) K/mm3 Sodium 133 L (137-145) mmol/L Chloride 96.0 L (98-107) mmol/L Creatinine 1.4 H (0.7-1.2) mg/dL Assessment and Plan - Patient Problems (1) Lymphadenopathy, thoracic Current Visit: Yes Status: Acute Plan to address problem: highly suspicious for mets from the previous left breast cancer. same as above. (2) Pleural effusion, right Current Visit: Yes Status: Acute Plan to address problem: Same as above,s/p a tap. , awaiting results. (3) Pulmonary nodules Current Visit: Yes Status: Acute Plan to address problem: See notes above.
[2017-02-28] MEDS: ZOCOR PO SCH (22:24)
[2017-03-01] MEDS: TYLENOL PO PRN (02:02)
[2017-03-01] MEDS: COREG PO SCH (09:51)
[2017-03-01] MEDS: FERGON PO SCH ×2 (09:52→21:03)
[2017-03-01] MEDS: LASIX PO SCH (09:52)
[2017-03-01] MEDS: ZYLOPRIM PO SCH (09:52)
[2017-03-01 09:59] LABS: Hemoglobin 8.5 gm/dl (10.1-14.3)
[2017-03-01 10:10] LABS: INR 1.01 (0.87-1.13)
--- NOTE | 2017-03-01 10:51 | Progress Note ---
Assessment and Plan Pulm nodules/pleural effusion/mediastinal LAD/liver mass/retroperitoneal LAD .Suspect probable malignancy.Had Dx thoracentesis, path report pending.No chemestries results Hemoptysis TSERING vs. CKD Thrombocytopenia Normocytic anemia, prob chronic disease Rec Check path results Chest pleural chemistries results with lab Subjective Principal diagnosis: Pleural effusion,pulmonary nodules, hemoptysis Objective Vital Signs - 12hr 03/01/17 03/01/17 03/01/17 01:10 04:58 08:30 Temperature 98.5 F 98.3 F 97.6 F Pulse Rate 74 68 65 Respiratory 12 12 16 Rate Blood Pressure 137/60 148/64 164/70 O2 Sat by Pulse 98 97 Oximetry 03/01/17 10:00 Temperature Pulse Rate Respiratory Rate Blood Pressure O2 Sat by Pulse 97 Oximetry Constitutional: no acute distress, alert Eyes: non-icteric ENT: oropharynx moist Effort: normal Ascultation: Right: diminished breath sounds (base) Cardiovascular: regular rate and rhythm (no mrg) Gastrointestinal: normoactive bowel sounds, soft, non-tender, non-distended Integumentary: normal Extremities: no cyanosis, no edema, pink and warm Neurologic: normal mental status, non-focal exam, pupils equal and round, CN II- XII normal Psychiatric: mood appropriate, affect normal CBC and BMP: 03/01/17 09:45 02/28/17 04:05 ABG, PT/INR, D-dimer: PT/INR, D-dimer PT 13.2 Sec. (12.2-14.9) 03/01/17 09:45 INR 1.01 (0.87-1.13) 03/01/17 09:45 D-Dimer 1308.61 ng/mlDDU (0-234) H 02/21/17 20:44 Abnormal lab findings: Abnormal Labs 02/22/17 02/22/17 02/23/17 03:05 08:55 06:33 RBC 2.56 L Hgb 8.2 L Hct 25.1 L MCV 98 H RDW 17.1 H Plt Count [place] % (Auto) 11.7 H Eos % (Auto) 7.3 H Baso % (Auto) 2.9 H [place] # 1.0 H Eos # 0.6 H Baso # 0.2 H Sodium Chloride BUN Creatinine Alkaline Phosphatase Lactate Dehydrogenase Total Creatine Kinase 20 L 28 L CK-MB (CK-2) Rel Index 7.0 H 6.4 H Total Protein Albumin CA 27-29 CA 125 Antigen 02/23/17 02/23/17 02/24/17 06:33 19:11 01:35 RBC Hgb Hct MCV RDW Plt Count [place] % (Auto) Eos % (Auto) Baso % (Auto) [place] # Eos # Baso # Sodium Chloride BUN Creatinine 1.3 H Alkaline Phosphatase 140 H Lactate Dehydrogenase 239 H Total Creatine Kinase CK-MB (CK-2) Rel Index Total Protein 6.2 L Albumin 3.5 L CA 27-29 39 H CA 125 Antigen 02/24/17 02/25/17 02/25/17 01:35 05:28 05:28 RBC 2.49 L Hgb 7.9 L Hct 24.4 L MCV 98 H RDW 17.3 H Plt Count 136 L [place] % (Auto) Eos % (Auto) Baso % (Auto) [place] # Eos # Baso # Sodium 134 L Chloride 97.5 L BUN 20 H Creatinine 1.8 H Alkaline Phosphatase Lactate Dehydrogenase Total Creatine Kinase CK-MB (CK-2) Rel Index Total Protein Albumin CA 27-29 CA 125 Antigen 269 H 02/26/17 02/26/17 02/27/17 08:25 18:23 07:18 RBC 2.39 L Hgb 7.7 L Hct 23.1 L MCV RDW 16.6 H Plt Count 122 L [place] % (Auto) 12.4 H Eos % (Auto) 7.1 H Baso % (Auto) 2.7 H [place] # 0.9 H Eos # 0.5 H Baso # 0.2 H Sodium 134 L Chloride 97.1 L BUN 20 H 20 H Creatinine 1.5 H 1.5 H Alkaline Phosphatase Lactate Dehydrogenase Total Creatine Kinase CK-MB (CK-2) Rel Index Total Protein Albumin CA 27-29 CA 125 Antigen 02/27/17 02/28/17 02/28/17 07:18 04:05 04:05 RBC 2.46 L Hgb 7.8 L Hct 23.8 L MCV RDW 17.2 H Plt Count 128 L [place] % (Auto) 13.3 H Eos % (Auto) 7.5 H Baso % (Auto) 3.0 H [place] # 1.0 H Eos # 0.6 H Baso # 0.2 H Sodium 130 L 133 L Chloride 94.0 L 96.0 L BUN 19 H Creatinine 1.4 H 1.4 H Alkaline Phosphatase Lactate Dehydrogenase Total Creatine Kinase CK-MB (CK-2) Rel Index Total Protein Albumin CA 27-29 CA 125 Antigen 03/01/17 09:45 RBC Hgb 8.5 L Hct 27.0 L MCV RDW Plt Count [place] % (Auto) Eos % (Auto) Baso % (Auto) [place] # Eos # Baso # Sodium Chloride BUN Creatinine Alkaline Phosphatase Lactate Dehydrogenase Total Creatine Kinase CK-MB (CK-2) Rel Index Total Protein Albumin CA 27-29 CA 125 Antigen
--- NOTE | 2017-03-01 14:33 | Progress Note ---
Subjective - Reason for Consult Consult date: 03/01/17 Reason for consult: follow up - Chief Complaint Chief complaint: "I feel better today." Ms. Em is an 87 year old female seen on the medical floor for evaluation of confusion/altered mental status. Today patient is calm and cooperative during assessment. She reports today is a better day than yesterday. She has her brother, [id number], and friend at bedside. She reports feeling supported. She plans to have another thoracentesis if needed. As far as orientation, she thought it was 02/27/17 but otherwise knew where she was. She discussed how she was moved to a different room and staff talked amongst themselves that she was put in the wrong room twice. The family states she is less confused but has some , mostly when she wakes up. Mental Status Exam - Vital signs Last Vital Signs Temp 97.7 F 03/01/17 12:20 Pulse 60 03/01/17 12:20 Resp 16 03/01/17 12:20 BP 144/10 03/01/17 12:20 Pulse Ox 97 03/01/17 12:20 Assessment and Plan MSE: Appearance: calm, cooperative Behavior: regular eye contact Speech: regular rate and tone Mood: "better" Affect: appropriate Thought Process: linear Thought Content: denies HI/SI's and AVH's Motor Activity: sitting up in the bed Cognition: A/Ox 2 with the date being 2 days off Insight: variable Judgment: variable Assessment and Plan Impression: AMS related to Delirium from health conditions. Today patient is calm and cooperative during assessment. No mental illness identified. In light of being told she has cancer, she talked about her and her wishes. She does not report suicidal ideation. Recommendation: Treatment of her medical conditions should decrease AMS. Patient would like information about Healthcare POA and living will Follow delirium precautions: 1. Frequently reorient patient and involve him/her in their care (simple explanations of procedures, tests, medications). 2. Lights on and shades open during daytime hours. 3. Try to avoid unnecessary interruptions to sleep during nighttime hours. 4. Obtain glasses, hearing aids from home if patient uses these at baseline. 5. Avoid medications that may exacerbate delirium (especially narcotics, benzodiazepines, barbiturates, ambien, lunesta, and medications with excessive anticholinergic properties).
--- NOTE | 2017-03-01 14:52 | Progress Note ---
Assessment and Plan Right pleural effusion. - Had thoracentesis and pleural fluid sent for analysis for possible malignancy. - Pathology report pending. Pulmonology following. - cxr showed increase in pleural effusion - plan for another thoracenthesis on Friday Multiple pulmonary nodules bilaterally, suspicious for metastases. - awaiting path report from pleural fluid. Dr. Buck following. Coronary artery disease. - No chest pain Chronic CHF. - On Lasix History of breast cancer. - suspicion of recurrence, wait for pathology report Hyperlipidemia - place on statin Possible dementia with behavioral change - suspected by history -consulted psych, patient does not have dementia - had intermittent episodes of delirium - cont supportive care Acute nose bleed - not resolved having intermittently, cont to monitor h and h - discussed with pt about blood transfusion if needed Full CODE STATUS DVT prophylaxis. SCD. Disposition: Family and pt want SNF placement Subjective Date of service: 03/01/17 Principal diagnosis: Pleural effusion,pulmonary nodules, hemoptysis Interval history: Patient seen and examined. Medical records and medication list reviewed. having intermittent nose bleed, cxr showed recurrence of pleural effusion discussed with Dr. cheek and Hu Herring, she will get another thoracenthesis to drain pleural fluid Discussed plan of care at bedside with patient. pathology report still pending Objective - Exam Narrative Exam: Gen appearance: Not in acute distress, HEENT: Normocephalic, atraumatic Neck: Supple, no JVD Lungs: Decreased breath sounds right lower lung field, no crackles, or wheezes. Heart: S1 and S2 regular, no murmurs, no gallops,no rubs Abdomen : Soft, non-tender, non-distended, normal bowel sounds Extremities :No edema, no clubbing or cyanosis Neuro: Awake, alert, oriented, normal speech, no focal neurological signs Psych: normal mood. - Constitutional Vitals: Vital Signs - 12hr 03/01/17 03/01/17 03/01/17 04:58 08:30 10:00 Temperature 98.3 F 97.6 F Pulse Rate 68 65 Respiratory 12 16 Rate Blood Pressure 148/64 164/70 O2 Sat by Pulse 98 97 97 Oximetry 03/01/17 12:20 Temperature 97.7 F Pulse Rate 60 Respiratory 16 Rate Blood Pressure 144/10 O2 Sat by Pulse 97 Oximetry - Labs CBC & Chem 7: 03/02/17 05:29 03/02/17 05:29 Labs: Abnormal lab results 03/01/17 Range/Units 09:45 Hgb 8.5 L (10.1-14.3) gm/dl Hct 27.0 L (30.3-42.9) %
[2017-03-01] MEDS: NORVASC PO SCH (15:13)
[2017-03-01] MEDS: ZOCOR PO SCH (21:03)
--- NOTE | 2017-03-01 22:27 | Consultation ---
History of Present Illness - Reason for Consult Consult date: 03/01/17 - History of Present Illness Patient seen/examined, labs reviewed. Resting in bed. Past History Past Medical History: other (CHF and breast cancer) Past Surgical History: Other Social history: other (she denies alcohol or illicit substance use. She is a . Her 11 years ago after 47 years of marriage. She does not have children.) Medications and Allergies Allergies Allergy/AdvReac Type Severity Reaction Status Date / Time No Known Allergies Allergy Verified 02/22/17 02:57 Home Medications Medication Instructions Recorded Confirmed Last Taken Type Alendronate Sodium 35 mg PO 7XD 02/22/17 02/22/17 02/21/17 History Allopurinol [Zyloprim] 300 mg PO QDAY 02/22/17 02/22/17 02/21/17 History Carvedilol [Coreg] 6.25 mg PO BID 02/22/17 02/22/17 02/21/17 History Cyanocobalamin [Vitamin B-12] 1,000 mcg IM QMONTH 02/22/17 02/22/17 02/21/17 History Ferrous Gluconate [Fergon 240 MG 240 mg PO BID 02/22/17 02/22/17 02/21/17 History tab] Furosemide [Lasix TAB] 20 mg PO QDAY 02/22/17 02/22/17 02/21/17 History Ipratropium/Albuterol Sulfate 20 - 100 mcg IH QID 02/22/17 02/22/17 02/21/17 History [Combivent Respimat] Ipratropium/Albuterol Sulfate 20 - 100 mcg IH QID 02/22/17 02/22/17 02/21/17 History [Combivent Respimat] Lovastatin [Altoprev] 20 mg PO QPM 02/22/17 02/22/17 02/21/17 History Pantoprazole Sodium 40 mg PO PRN 02/22/17 02/22/17 02/21/17 History Polyethylene Glycol 600 300 tab PO DAILY 02/22/17 02/22/17 02/21/17 History Active Meds: Active Medications Acetaminophen (Tylenol) 650 mg PO Q4H PRN PRN Reason: Pain MILD(1-3)/Fever >100.5/[facility] Last Admin: 03/01/17 02:02 Dose: 650 mg Allopurinol (Zyloprim) 300 mg PO QDAY [facility] Last Admin: 03/01/17 09:52 Dose: 300 mg Amlodipine Besylate (Norvasc) 10 mg PO QDAY [facility] Last Admin: 03/01/17 15:13 Dose: 10 mg Bisacodyl (Dulcolax) 10 mg IN QDAY PRN PRN Reason: Constipation unrelieved by MOM Ferrous Gluconate (Fergon) 324 mg PO BID [facility] Last Admin: 03/01/17 21:03 Dose: 324 mg Furosemide (Lasix) 20 mg PO QDAY [facility] Last Admin: 03/01/17 09:52 Dose: 20 mg Hydralazine HCl (Apresoline) 10 mg IV Q4HR PRN PRN Reason: Hypertension Magnesium Hydroxide (Milk Of Magnesia) 30 ml PO Q4H PRN PRN Reason: Constipation Last Admin: 02/25/17 19:00 Dose: 30 ml Miscellaneous Medication (Polyethylene Glycol 600 [Polyethylene Glycol 600]) 300 tab PO DAILY [facility] Ondansetron HCl (Zofran) 4 mg IV Q8H PRN PRN Reason: N/V unrelieved by Reglan Pantoprazole Sodium (Protonix) 40 mg PO DAILY PRN PRN Reason: Acid reflux Last Admin: 02/24/17 14:38 Dose: 40 mg Simvastatin (Zocor) 10 mg PO QHS [facility] Last Admin: 03/01/17 21:03 Dose: 10 mg Review of Systems Breasts: deferred Exam - Constitutional Vitals: Temp Pulse Resp BP Pulse Ox 98.1 F 70 18 137/72 97 03/01/17 20:00 03/01/17 20:00 03/01/17 20:00 03/01/17 20:00 03/01/17 20:00 General appearance: Present: no acute distress, well-nourished - EENT Eyes: Present: PERRL ENT: hearing intact, clear oral mucosa - Neck Neck: Present: supple, normal ROM - Respiratory Respiratory effort: normal Respiratory: bilateral: CTA - Cardiovascular Heart Sounds: Present: S1 & S2. Absent: rub, click - Extremities Extremities: pulses symmetrical, No edema Peripheral Pulses: within normal limits - Abdominal General gastrointestinal: Present: soft, non-tender, non-distended, normal bowel sounds Female genitourinary: Present: deferred - Rectal Rectal Exam: deferred - Integumentary Integumentary: Present: clear, warm, dry - Musculoskeletal Musculoskeletal: gait normal, strength equal bilaterally - Psychiatric Psychiatric: appropriate mood/affect, intact judgment & insight - Neurologic Neurologic: CNII-XII intact, moves all extremities Results - Labs CBC & Chem 7: 03/01/17 09:45 02/28/17 04:05 Labs: Abnormal lab results 03/01/17 Range/Units 09:45 Hgb 8.5 L (10.1-14.3) gm/dl Hct 27.0 L (30.3-42.9) % Assessment and Plan - Patient Problems (1) Lymphadenopathy, thoracic Current Visit: Yes Status: Acute Plan to address problem: highly suspicious for mets from the previous left breast cancer. same as above. (2) Pleural effusion, right Current Visit: Yes Status: Acute Plan to address problem: Same as above,s/p a tap. , awaiting results. (3) Pulmonary nodules Current Visit: Yes Status: Acute Plan to address problem: monitor.
[2017-03-02] MEDS: TYLENOL PO PRN (00:07)
[2017-03-02 06:45] LABS: Hematocrit 24.3 % (30.3-42.9)
[2017-03-02 07:18] LABS: BUN/Creatinine Ratio 12.85; Calcium 8.8 mg/dL (8.4-10.2); Potassium 4.7 mmol/L (3.6-5.0)
[2017-03-02] MEDS: FERGON PO SCH ×2 (09:13→21:52)
[2017-03-02] MEDS: NORVASC PO SCH (09:13)
[2017-03-02] MEDS: ZYLOPRIM PO SCH (09:14)
[2017-03-02] MEDS: LASIX PO SCH (09:14)
--- NOTE | 2017-03-02 12:49 | Progress Note ---
Assessment and Plan Pulm nodules/pleural effusion/mediastinal LAD/liver mass/retroperitoneal LAD .Suspect probable malignancy. s/p thoracentesis, path report pending. - high Ca-125,high LDH Hemoptysis.None resolved.Had mild epistaxis yesterday TSERING vs. CKD Thrombocytopenia Normocytic anemia, prob chronic disease Rec Check path results Call lab for pleural chemistries, see orders Oncology f/u Subjective Date of service: 03/02/17 Principal diagnosis: Pleural effusion,pulmonary nodules, hemoptysis Interval history: Feels the same.No cough or SOB.Concerned about leaving the hospital, placement Objective Vital Signs - 12hr 03/02/17 03/02/17 04:00 08:45 Temperature 97.3 F L 98.2 F Pulse Rate 61 62 Respiratory 18 18 Rate Blood Pressure 126/60 118/66 O2 Sat by Pulse 98 95 Oximetry Constitutional: no acute distress, alert Eyes: non-icteric ENT: oropharynx moist Effort: normal Ascultation: Right: diminished breath sounds (base), Bilateral: clear Cardiovascular: regular rate and rhythm Gastrointestinal: normoactive bowel sounds, soft, non-tender, non-distended Integumentary: normal Extremities: no cyanosis, no edema, pink and warm Neurologic: normal mental status, non-focal exam, pupils equal and round, CN II- XII normal Psychiatric: mood appropriate, affect normal CBC and BMP: 03/02/17 05:29 03/02/17 05:29 ABG, PT/INR, D-dimer: PT/INR, D-dimer PT 13.2 Sec. (12.2-14.9) 03/01/17 09:45 INR 1.01 (0.87-1.13) 03/01/17 09:45 D-Dimer 1308.61 ng/mlDDU (0-234) H 02/21/17 20:44 Abnormal lab findings: Abnormal Labs 02/22/17 02/22/17 02/23/17 03:05 08:55 06:33 RBC 2.56 L Hgb 8.2 L Hct 25.1 L MCV 98 H RDW 17.1 H Plt Count [place] % (Auto) 11.7 H Eos % (Auto) 7.3 H Baso % (Auto) 2.9 H [place] # 1.0 H Eos # 0.6 H Baso # 0.2 H Sodium Chloride BUN Creatinine Alkaline Phosphatase Lactate Dehydrogenase Total Creatine Kinase 20 L 28 L CK-MB (CK-2) Rel Index 7.0 H 6.4 H Total Protein Albumin CA 27-29 CA 125 Antigen 02/23/17 02/23/17 02/24/17 06:33 19:11 01:35 RBC Hgb Hct MCV RDW Plt Count [place] % (Auto) Eos % (Auto) Baso % (Auto) [place] # Eos # Baso # Sodium Chloride BUN Creatinine 1.3 H Alkaline Phosphatase 140 H Lactate Dehydrogenase 239 H Total Creatine Kinase CK-MB (CK-2) Rel Index Total Protein 6.2 L Albumin 3.5 L CA 27-29 39 H CA 125 Antigen 02/24/17 02/25/17 02/25/17 01:35 05:28 05:28 RBC 2.49 L Hgb 7.9 L Hct 24.4 L MCV 98 H RDW 17.3 H Plt Count 136 L [place] % (Auto) Eos % (Auto) Baso % (Auto) [place] # Eos # Baso # Sodium 134 L Chloride 97.5 L BUN 20 H Creatinine 1.8 H Alkaline Phosphatase Lactate Dehydrogenase Total Creatine Kinase CK-MB (CK-2) Rel Index Total Protein Albumin CA 27-29 CA 125 Antigen 269 H 02/26/17 02/26/17 02/27/17 08:25 18:23 07:18 RBC 2.39 L Hgb 7.7 L Hct 23.1 L MCV RDW 16.6 H Plt Count 122 L [place] % (Auto) 12.4 H Eos % (Auto) 7.1 H Baso % (Auto) 2.7 H [place] # 0.9 H Eos # 0.5 H Baso # 0.2 H Sodium 134 L Chloride 97.1 L BUN 20 H 20 H Creatinine 1.5 H 1.5 H Alkaline Phosphatase Lactate Dehydrogenase Total Creatine Kinase CK-MB (CK-2) Rel Index Total Protein Albumin CA 27-29 CA 125 Antigen 02/27/17 02/28/17 02/28/17 07:18 04:05 04:05 RBC 2.46 L Hgb 7.8 L Hct 23.8 L MCV RDW 17.2 H Plt Count 128 L [place] % (Auto) 13.3 H Eos % (Auto) 7.5 H Baso % (Auto) 3.0 H [place] # 1.0 H Eos # 0.6 H Baso # 0.2 H Sodium 130 L 133 L Chloride 94.0 L 96.0 L BUN 19 H Creatinine 1.4 H 1.4 H Alkaline Phosphatase Lactate Dehydrogenase Total Creatine Kinase CK-MB (CK-2) Rel Index Total Protein Albumin CA 27-29 CA 125 Antigen 03/01/17 03/02/17 03/02/17 09:45 05:29 05:29 RBC Hgb 8.5 L 8.0 L Hct 27.0 L 24.3 L MCV RDW Plt Count [place] % (Auto) Eos % (Auto) Baso % (Auto) [place] # Eos # Baso # Sodium 128 L Chloride 92.0 L BUN 18 H Creatinine 1.4 H Alkaline Phosphatase Lactate Dehydrogenase Total Creatine Kinase CK-MB (CK-2) Rel Index Total Protein Albumin CA 27-29 CA 125 Antigen Additional Studies: Laboratory Tests 02/23/17 16:40 Fluid Lymphocytes 67.0 Fluid Glucose Pending Fluid Total Protein Pending Fluid LDH Pending
--- NOTE | 2017-03-02 14:58 | Progress Note ---
Assessment and Plan Right pleural effusion. - Had thoracentesis and pleural fluid sent for analysis for possible malignancy. - Pathology report pending. Pulmonology following. - cxr showed increase in pleural effusion - plan for another thoracenthesis on Friday Multiple pulmonary nodules bilaterally, suspicious for metastases. - awaiting path report from pleural fluid. Dr. Buck following. Coronary artery disease. - No chest pain Chronic CHF. - On Lasix History of breast cancer. - suspicion of recurrence, wait for pathology report Hyperlipidemia - place on statin Possible dementia with behavioral change - suspected by history -consulted psych, patient does not have dementia - had intermittent episodes of delirium - cont supportive care Acute nose bleed - not resolved having intermittently, cont to monitor h and h - discussed with pt about blood transfusion if needed Full CODE STATUS DVT prophylaxis. SCD. Disposition: Family and pt want SNF placement Subjective Date of service: 03/02/17 Principal diagnosis: Pleural effusion,pulmonary nodules, hemoptysis Interval history: Patient seen and examined. Medical records and medication list reviewed. having intermittent nose bleed, cxr showed recurrence of pleural effusion discussed with Dr. cheek and Hu Herring, she will get another thoracenthesis to drain pleural fluid Discussed plan of care at bedside with patient. pathology report still pending Objective - Exam Narrative Exam: Gen appearance: Not in acute distress, HEENT: Normocephalic, atraumatic Neck: Supple, no JVD Lungs: Decreased breath sounds right lower lung field, no crackles, or wheezes. Heart: S1 and S2 regular, no murmurs, no gallops,no rubs Abdomen : Soft, non-tender, non-distended, normal bowel sounds Extremities :No edema, no clubbing or cyanosis Neuro: Awake, alert, oriented, normal speech, no focal neurological signs Psych: normal mood. - Constitutional Vitals: Vital Signs - 12hr 03/02/17 03/02/17 03/02/17 04:00 08:45 10:00 Temperature 97.3 F L 98.2 F Pulse Rate 61 62 58 L Respiratory 18 18 Rate Blood Pressure 126/60 118/66 O2 Sat by Pulse 98 95 Oximetry 03/02/17 12:55 Temperature 97.6 F Pulse Rate 58 L Respiratory 18 Rate Blood Pressure 102/53 O2 Sat by Pulse 98 Oximetry - Labs CBC & Chem 7: 03/02/17 05:29 03/02/17 05:29 Labs: Abnormal lab results 03/02/17 03/02/17 Range/Units 05:29 05:29 Hgb 8.0 L (10.1-14.3) gm/dl Hct 24.3 L (30.3-42.9) % Sodium 128 L (137-145) mmol/L Chloride 92.0 L (98-107) mmol/L BUN 18 H (7-17) mg/dL Creatinine 1.4 H (0.7-1.2) mg/dL
--- NOTE | 2017-03-02 16:37 | Progress Note ---
Subjective - Reason for Consult Consult date: 03/02/17 Reason for consult: follow up - Chief Complaint Chief complaint: "I feel better" Ms. Em is an 87 year old female seen on the medical floor for follow up evaluation of confusion/altered mental status. Today patient is calm and cooperative during assessment. She reports feeling supported by people she did not suspect. She had visitors all day. The family states she is less confused but has some, mostly when she wakes up. She also attributes confusion to having multiple people in her room coming and going. She remembered this author. No behavioral disturbances. Mental Status Exam - Vital signs Last Vital Signs Temp 97.6 F 03/02/17 12:55 Pulse 58 L 03/02/17 12:55 Resp 18 03/02/17 12:55 BP 102/53 03/02/17 12:55 Pulse Ox 98 03/02/17 12:55 Assessment and Plan MSE: Appearance: calm, cooperative Behavior: regular eye contact Speech: regular rate and tone Mood: "better" Affect: appropriate Thought Process: linear Thought Content: denies HI/SI's and AVH's Motor Activity: sitting up in the bed Cognition: A/O x 2 Insight: variable Judgment: variable Assessment and Plan Impression: AMS related to Delirium from health conditions. Today patient is calm and cooperative during assessment. No mental illness identified. In light of being told she has cancer, she talked about her and her wishes. She does not report suicidal ideation. Recommendation: Treatment of her medical conditions should decrease AMS. Patient would like information about Healthcare POA and living will Follow delirium precautions: 1. Frequently reorient patient and involve him/her in their care (simple explanations of procedures, tests, medications). 2. Lights on and shades open during daytime hours. 3. Try to avoid unnecessary interruptions to sleep during nighttime hours. 4. Obtain glasses, hearing aids from home if patient uses these at baseline. 5. Avoid medications that may exacerbate delirium (especially narcotics, benzodiazepines, barbiturates, ambien, lunesta, and medications with excessive anticholinergic properties). Reconsult if needed
--- NOTE | 2017-03-02 16:59 | Consultation ---
History of Present Illness - Reason for Consult Consult date: 03/02/17 - History of Present Illness Patient seen/examined, labs reviewed, , sleepy.No new issues at this time. Hopefully, path result will be ready tomorrow. Past History Past Medical History: other (CHF and breast cancer) Past Surgical History: Other Social history: other (she denies alcohol or illicit substance use. She is a . Her 11 years ago after 47 years of marriage. She does not have children.) Medications and Allergies Allergies Allergy/AdvReac Type Severity Reaction Status Date / Time No Known Allergies Allergy Verified 02/22/17 02:57 Home Medications Medication Instructions Recorded Confirmed Last Taken Type Alendronate Sodium 35 mg PO 7XD 02/22/17 02/22/17 02/21/17 History Allopurinol [Zyloprim] 300 mg PO QDAY 02/22/17 02/22/17 02/21/17 History Carvedilol [Coreg] 6.25 mg PO BID 02/22/17 02/22/17 02/21/17 History Cyanocobalamin [Vitamin B-12] 1,000 mcg IM QMONTH 02/22/17 02/22/17 02/21/17 History Ferrous Gluconate [Fergon 240 MG 240 mg PO BID 02/22/17 02/22/17 02/21/17 History tab] Furosemide [Lasix TAB] 20 mg PO QDAY 02/22/17 02/22/17 02/21/17 History Ipratropium/Albuterol Sulfate 20 - 100 mcg IH QID 02/22/17 02/22/17 02/21/17 History [Combivent Respimat] Ipratropium/Albuterol Sulfate 20 - 100 mcg IH QID 02/22/17 02/22/17 02/21/17 History [Combivent Respimat] Lovastatin [Altoprev] 20 mg PO QPM 02/22/17 02/22/17 02/21/17 History Pantoprazole Sodium 40 mg PO PRN 02/22/17 02/22/17 02/21/17 History Polyethylene Glycol 600 300 tab PO DAILY 02/22/17 02/22/17 02/21/17 History Active Meds: Active Medications Acetaminophen (Tylenol) 650 mg PO Q4H PRN PRN Reason: Pain MILD(1-3)/Fever >100.5/[facility] Last Admin: 03/02/17 00:07 Dose: 650 mg Allopurinol (Zyloprim) 300 mg PO QDAY [facility] Last Admin: 03/02/17 09:14 Dose: 300 mg Amlodipine Besylate (Norvasc) 10 mg PO QDAY [facility] Last Admin: 03/02/17 09:13 Dose: 10 mg Bisacodyl (Dulcolax) 10 mg ND QDAY PRN PRN Reason: Constipation unrelieved by MOM Ferrous Gluconate (Fergon) 324 mg PO BID [facility] Last Admin: 03/02/17 09:13 Dose: 324 mg Furosemide (Lasix) 20 mg PO QDAY [facility] Last Admin: 03/02/17 09:14 Dose: 20 mg Hydralazine HCl (Apresoline) 10 mg IV Q4HR PRN PRN Reason: Hypertension Magnesium Hydroxide (Milk Of Magnesia) 30 ml PO Q4H PRN PRN Reason: Constipation Last Admin: 02/25/17 19:00 Dose: 30 ml Miscellaneous Medication (Polyethylene Glycol 600 [Polyethylene Glycol 600]) 300 tab PO DAILY [facility] Ondansetron HCl (Zofran) 4 mg IV Q8H PRN PRN Reason: N/V unrelieved by Reglan Pantoprazole Sodium (Protonix) 40 mg PO DAILY PRN PRN Reason: Acid reflux Last Admin: 02/24/17 14:38 Dose: 40 mg Simvastatin (Zocor) 10 mg PO QHS [facility] Last Admin: 03/01/17 21:03 Dose: 10 mg Review of Systems Constitutional: fatigue Breasts: deferred Neurological: confusion Exam - Constitutional Vitals: Temp Pulse Resp BP Pulse Ox 97.6 F 58 L 18 102/53 98 03/02/17 12:55 03/02/17 12:55 03/02/17 12:55 03/02/17 12:55 03/02/17 12:55 General appearance: Present: no acute distress, well-nourished - EENT Eyes: Present: PERRL ENT: hearing intact, clear oral mucosa - Neck Neck: Present: supple, normal ROM - Respiratory Respiratory effort: normal Respiratory: bilateral: CTA - Cardiovascular Heart Sounds: Present: S1 & S2. Absent: rub, click - Extremities Extremities: pulses symmetrical, No edema Peripheral Pulses: within normal limits - Abdominal General gastrointestinal: Present: soft, non-tender, non-distended, normal bowel sounds Female genitourinary: Present: deferred - Rectal Rectal Exam: deferred - Integumentary Integumentary: Present: clear, warm, dry - Musculoskeletal Musculoskeletal: gait normal, strength equal bilaterally - Psychiatric Psychiatric: appropriate mood/affect, intact judgment & insight - Neurologic Neurologic: CNII-XII intact, moves all extremities Results - Labs CBC & Chem 7: 03/02/17 05:29 03/02/17 05:29 Labs: Abnormal lab results 03/02/17 03/02/17 Range/Units 05:29 05:29 Hgb 8.0 L (10.1-14.3) gm/dl Hct 24.3 L (30.3-42.9) % Sodium 128 L (137-145) mmol/L Chloride 92.0 L (98-107) mmol/L BUN 18 H (7-17) mg/dL Creatinine 1.4 H (0.7-1.2) mg/dL Assessment and Plan - Patient Problems (1) Lymphadenopathy, thoracic Current Visit: Yes Status: Acute Plan to address problem: highly suspicious for mets from the previous left breast cancer. same as above. (2) Pleural effusion, right Current Visit: Yes Status: Acute Plan to address problem: Same as above,s/p a tap. , awaiting results. (3) Pulmonary nodules Current Visit: Yes Status: Acute Plan to address problem: monitor.
[2017-03-02] MEDS: ZOCOR PO SCH (21:52)
[2017-03-03] MEDS: NORVASC PO SCH (10:44)
[2017-03-03] MEDS: LASIX PO SCH (10:45)
[2017-03-03] MEDS: FERGON PO SCH ×2 (10:45→21:48)
[2017-03-03] MEDS: ZYLOPRIM PO SCH (10:45)
[2017-03-03] MEDS: TYLENOL PO PRN (10:49)
--- NOTE | 2017-03-03 10:49 | Ultrasound Report ---
ULTRASOUND THORACENTESIS INDICATION: Right pleural effusion. COMPARISON: None similar. FINDINGS: Ultrasound guided right thoracentesis performed. Written informed consent obtained after explaining the risks and benefits. Patient brought in the ultrasound room. An appropriate skin site marked. Using standard sterile precautions and 1% lidocaine for local anesthesia, 5 [place] catheter advanced into the pleural fluid. Total of approximately 1100 cc of slight blood tinged serous fluid obtained with sample sent to the lab. Catheter removed and hemostasis achieved. Patient returned to room. No immediate complications. CONCLUSION: Status post right thoracentesis, as described. A 1 hour post procedure chest x-ray ordered. Dr. Preciado present for and performed the entire procedure. Thank you for the opportunity to participate in this patient's care.
--- NOTE | 2017-03-03 10:51 | Procedure Note ---
Date of procedure: 03/03/17 Pre-op diagnosis: Rt pleural effusion Post-op diagnosis: same Procedure: US guided right thoracentesis Findings: 1100 cc of slight blood tinged fluid removed. Anesthesia: local Surgeon: JANNY SAENZ Estimated blood loss: none Specimen disposition: to lab Condition: stable Disposition: floor (Post proc CXR ordered.)
--- NOTE | 2017-03-03 12:18 | XRay Report ---
PORTABLE CHEST INDICATION: Post right thoracentesis. COMPARISON: 02/27/2017 FINDINGS: Portable, frontal chest radiograph demonstrates no pneumothorax. Improved right basilar density with mild atelectasis and approximately 2.5 cm right infrahilar subtle opacity now noted. Small left pleural effusion also appears improving. Normal cardiomediastinal silhouette. EKG leads. Demineralized bones. Stable left axillary surgical clips. CONCLUSION: No acute complication following right thoracentesis with other findings, as above. Please correlate. Thank you for the opportunity to participate in this patient's care.
--- NOTE | 2017-03-03 14:10 | Event Note ---
Date: 03/03/17 Spoke with Pathology. Apparently when cytology is requested in the computer, that order is not seen and specimen will not be sent to cytology. The white slips that are used in the endo suite and surgical suites have to be filled out in order for cytology to happen. Special stains have been sent on the fluid from the . Today, patient had another thoracentesis but not sure if pathology was sent on this or not. Will order from [employer] but not sure if specimen will be received. Will alert [facility].
[2017-03-03] MEDS ORDERED: NACL 0.9% 1000 ML 1,000 ML ONE (14:37)
--- NOTE | 2017-03-03 15:26 | XRay Report ---
AP CHEST: HISTORY: Short of breath Compared to the exam earlier today at 1157 hrs. Borderline heart size and right basilar atelectasis/infiltrate is unchanged. The remainder of the lungs are generally clear. No large pleural effusion or pneumothorax has developed. The thoracic cage is grossly intact. IMPRESSION: No change.
--- NOTE | 2017-03-03 18:53 | Progress Note ---
Assessment and Plan Vasovagal syncope - happened after thoracenthesis during BM - will give iv fluid, stop lasix - family updated by phone - will get CT head bradycardia on monitor with 1 degree AV block - consult cardiology - pt was on BB, which has beed d/ceasar HTN, on amlodipine Right pleural effusion. - Had thoracentesis and pleural fluid sent for analysis for possible malignancy. - Pathology report pending. Pulmonology following. - cxr showed increase in pleural effusion - s/p another thoracenthesis today Multiple pulmonary nodules bilaterally, suspicious for metastases. - awaiting path report from pleural fluid. Dr. Buck following. Coronary artery disease. - No chest pain Chronic CHF. - On Lasix History of breast cancer. - suspicion of recurrence, wait for pathology report Hyperlipidemia - placed on statin Possible dementia with behavioral change - suspected by history -consulted psych, patient does not have dementia - had intermittent episodes of delirium - cont supportive care Acute nose bleed - did not have any in last 24h, cont to monitor h and h - discussed with pt about blood transfusion if needed Full CODE STATUS DVT prophylaxis. SCD. Disposition: Family and pt want SNF placement with hospice, consult placed Subjective Date of service: 03/03/17 Principal diagnosis: Pleural effusion,pulmonary nodules, hemoptysis Interval history: Patient seen and examined. s/p thoracenthesis today for the 2nd time Code Med radha as she was found lathergic and unresponsive on the commode she never lost pulse, gained consciousness in few seconds Objective - Exam Narrative Exam: Gen appearance: Not in acute distress, HEENT: Normocephalic, atraumatic Neck: Supple, no JVD Lungs: Decreased breath sounds right lower lung field, no crackles, or wheezes. Heart: S1 and S2 regular, no murmurs, no gallops,no rubs Abdomen : Soft, non-tender, non-distended, normal bowel sounds Extremities :No edema, no clubbing or cyanosis Neuro: Awake, alert, oriented, normal speech, no focal neurological signs Psych: normal mood. - Constitutional Vitals: Vital Signs - 12hr 03/03/17 03/03/17 03/03/17 08:00 10:44 11:58 Temperature 97.5 F L 97.6 F Pulse Rate 69 69 66 Respiratory 18 16 Rate Blood Pressure 126/60 120/60 101/55 O2 Sat by Pulse 96 99 Oximetry 03/03/17 14:38 Temperature Pulse Rate Respiratory Rate Blood Pressure O2 Sat by Pulse 97 Oximetry - Labs CBC & Chem 7: 03/02/17 05:29 03/02/17 05:29
--- NOTE | 2017-03-03 19:25 | Consultation ---
History of Present Illness - Reason for Consult Consult date: 03/03/17 - History of Present Illness Patient resting in bed, VSS. I have spoken to the pathology, her final is still not ready, awaiting send out for special stainning, expect final tomorrow as per pathology dept. Past History Past Medical History: other (CHF and breast cancer) Past Surgical History: Other Social history: other (she denies alcohol or illicit substance use. She is a . Her 11 years ago after 47 years of marriage. She does not have children.) Medications and Allergies Allergies Allergy/AdvReac Type Severity Reaction Status Date / Time No Known Allergies Allergy Verified 02/22/17 02:57 Home Medications Medication Instructions Recorded Confirmed Last Taken Type Alendronate Sodium 35 mg PO 7XD 02/22/17 02/22/17 02/21/17 History Allopurinol [Zyloprim] 300 mg PO QDAY 02/22/17 02/22/17 02/21/17 History Carvedilol [Coreg] 6.25 mg PO BID 02/22/17 02/22/17 02/21/17 History Cyanocobalamin [Vitamin B-12] 1,000 mcg IM QMONTH 02/22/17 02/22/17 02/21/17 History Ferrous Gluconate [Fergon 240 MG 240 mg PO BID 02/22/17 02/22/17 02/21/17 History tab] Furosemide [Lasix TAB] 20 mg PO QDAY 02/22/17 02/22/17 02/21/17 History Ipratropium/Albuterol Sulfate 20 - 100 mcg IH QID 02/22/17 02/22/17 02/21/17 History [Combivent Respimat] Ipratropium/Albuterol Sulfate 20 - 100 mcg IH QID 02/22/17 02/22/17 02/21/17 History [Combivent Respimat] Lovastatin [Altoprev] 20 mg PO QPM 02/22/17 02/22/17 02/21/17 History Pantoprazole Sodium 40 mg PO PRN 02/22/17 02/22/17 02/21/17 History Polyethylene Glycol 600 300 tab PO DAILY 02/22/17 02/22/17 02/21/17 History Active Meds: Active Medications Acetaminophen (Tylenol) 650 mg PO Q4H PRN PRN Reason: Pain MILD(1-3)/Fever >100.5/HOYOS Last Admin: 03/03/17 10:49 Dose: 650 mg Allopurinol (Zyloprim) 300 mg PO QDAY [facility] Last Admin: 03/03/17 10:45 Dose: 300 mg Amlodipine Besylate (Norvasc) 10 mg PO QDAY [facility] Last Admin: 03/03/17 10:44 Dose: 10 mg Bisacodyl (Dulcolax) 10 mg [place] QDAY PRN PRN Reason: Constipation unrelieved by MOM Ferrous Gluconate (Fergon) 324 mg PO BID [facility] Last Admin: 03/03/17 10:45 Dose: 324 mg Furosemide (Lasix) 20 mg PO QDAY [facility] Last Admin: 03/03/17 10:45 Dose: 20 mg Hydralazine HCl (Apresoline) 10 mg IV Q4HR PRN PRN Reason: Hypertension Magnesium Hydroxide (Milk Of Magnesia) 30 ml PO Q4H PRN PRN Reason: Constipation Last Admin: 02/25/17 19:00 Dose: 30 ml Miscellaneous Medication (Polyethylene Glycol 600 [Polyethylene Glycol 600]) 300 tab PO DAILY [facility] Ondansetron HCl (Zofran) 4 mg IV Q8H PRN PRN Reason: N/V unrelieved by Reglan Last Admin: 03/03/17 14:40 Dose: 4 mg Pantoprazole Sodium (Protonix) 40 mg PO DAILY PRN PRN Reason: Acid reflux Last Admin: 02/24/17 14:38 Dose: 40 mg Simvastatin (Zocor) 10 mg PO QHS [facility] Last Admin: 03/02/17 21:52 Dose: 10 mg Review of Systems Constitutional: fatigue Breasts: deferred Exam - Constitutional Vitals: Temp Pulse Resp BP Pulse Ox 97.6 F 98 H 16 101/55 97 03/03/17 11:58 03/03/17 19:14 03/03/17 11:58 03/03/17 11:58 03/03/17 14:38 General appearance: Present: no acute distress, well-nourished - EENT Eyes: Present: PERRL ENT: hearing intact, clear oral mucosa - Neck Neck: Present: supple, normal ROM - Respiratory Respiratory effort: normal Respiratory: bilateral: CTA - Cardiovascular Heart Sounds: Present: S1 & S2. Absent: rub, click - Extremities Extremities: pulses symmetrical, No edema Peripheral Pulses: within normal limits - Abdominal General gastrointestinal: Present: soft, non-tender, non-distended, normal bowel sounds Female genitourinary: Present: deferred - Rectal Rectal Exam: deferred - Integumentary Integumentary: Present: clear, warm, dry - Musculoskeletal Musculoskeletal: gait normal, strength equal bilaterally - Psychiatric Psychiatric: appropriate mood/affect, intact judgment & insight - Neurologic Neurologic: CNII-XII intact, moves all extremities Results - Labs CBC & Chem 7: 03/02/17 05:29 03/02/17 05:29 Labs: Abnormal lab results 03/03/17 Range/Units 14:35 POC Glucose 121 H (70-105) Assessment and Plan - Patient Problems (1) Lymphadenopathy, thoracic Current Visit: Yes Status: Acute Plan to address problem: highly suspicious for mets from the previous left breast cancer. same as above. (2) Pleural effusion, right Current Visit: Yes Status: Acute Plan to address problem: Same as above,s/p a tap. , awaiting results. (3) Pulmonary nodules Current Visit: Yes Status: Acute Plan to address problem: monitor.
[2017-03-03] MEDS: ZOCOR PO SCH (21:48)
[2017-03-03 23:44] LABS: LDH,Body Fluid 128; Total Protein,Body Fluid < 3.0 (15.0-45.0)
[2017-03-04 01:16] LABS: Hematocrit 28.3 % (30.3-42.9); Hemoglobin 9.4 gm/dl (10.1-14.3); Mean Corpuscular HGB Conc 33 % (30-34); Mean Corpuscular Hemoglobin 32 pg (28-32); Mean Corpuscular Volume 97 fl (79-97); Platelet Count 132 K/mm3 (140-440); Red Blood Count 2.93 M/mm3 (3.65-5.03); Red Cell Distribution Width 17.8 % (13.2-15.2); White Blood Count 8.3 K/mm3 (4.5-11.0)
[2017-03-04 01:40] LABS: BUN/Creatinine Ratio 12.85; Calcium 9.3 mg/dL (8.4-10.2); Chloride 91.6 mmol/L (98-107); Potassium 4.8 mmol/L (3.6-5.0)
[2017-03-04] MEDS ORDERED: NACL 0.9% 1000 ML 1,000 ML IV SCH (02:00)
--- NOTE | 2017-03-04 11:26 | Cat Scan Report ---
CT HEAD WITHOUT CONTRAST INDICATION: Syncope. COMPARISON: None similar. FINDINGS: Noncontrast head CT demonstrates normal ventricles and age-appropriate sulci, latter mild to moderately enlarged more so towards the vertex. Minimal, benign bilateral basal ganglia calcifications. No definite acute infarct, hemorrhage, mass effect or midline shift. Normal posterior fossa with preserved basilar cisterns. Approximately 1.5 cm left cerebellar old infarct inferiorly incidentally noted. Extensive streak artifact from numerous radiopaque dental material limits exam. Bilateral cataract surgery. Approximately 1.3 cm right maxillary sinus mucous retention cyst anteriorly. Clear remainder imaged paranasal sinuses and mastoid air cells. Atherosclerotic ICA and vertebral artery calcifications. Calvarial hyperostosis noted, greatest frontal. Normal scalp. CONCLUSION: No acute intracranial CT abnormality with few other incidental findings, as above. Thank you for the opportunity to participate in this patient's care.
[2017-03-04] MEDS: FERGON PO SCH ×2 (11:45→21:40)
[2017-03-04] MEDS: ZYLOPRIM PO SCH (11:45)
[2017-03-04] MEDS: NORVASC PO SCH (11:45)
--- NOTE | 2017-03-04 13:17 | Event Note ---
Date: 03/04/17 Cardiology note dictated #1. Bradycardia arrhythmias, improved after holding beta blockers #2. History of CVA of breast #3. Hypertension #4. Hyperlipidemia #5. Recurrent pleural effusions and possible metastatic disease followed by oncology and pulmonary. Thank you Dr. ZAKIA Moeller.
--- NOTE | 2017-03-04 16:51 | Progress Note ---
Assessment and Plan Assessment and plan: Acute respiratory failure, POA - due to pleural effusion - s/p thoracenthesis x2 - cont supplimental O2, nebs Vasovagal syncope - happened after thoracenthesis - Resolved - CT head negative bradycardia on monitor with 1 degree AV block - Cardiology consult appreciated - Improved after withhelding metoprolol Right pleural effusion. - Thoracentesis was done yesterday and 100ml of blood tinged sputum was sent to lab Multiple pulmonary nodules bilaterally, suspicious for metastases. - awaiting path report from pleural fluid. Dr. Buck following. Coronary artery disease. - No chest pain Chronic CHF. - On Lasix History of breast cancer. - suspicion of recurrence, wait for pathology report Hyperlipidemia - placed on statin Acute nose bleed - resolved, H/H stable Full CODE STATUS DVT prophylaxis. SCD. Disposition: patient will be placed to hospice after the result. History Interval history: I have seen and evaluated the patient is morning, patient said if it is cancer she went to go to hospice. She doesn't want aggressive treatment. Hospitalist Physical - Physical exam Narrative exam: Not in cardiopulmonary distress. The patient appeared well nourished and normally developed. Vital signs as documented. Head exam is unremarkable. No scleral icterus . Neck is without jugular venous distension, thyromegaly, or carotid bruits. Lungs are clear to auscultation. Cardiac exam reveals regular rate and Rhythm. First and second heart sounds normal. No murmurs, rubs or gallops. Abdominal exam reveals normal bowel sounds, no masses, no organomegaly and no aortic enlargement. Extremities are nonedematous and both femoral and pedal pulses are normal. 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 No focal weakness. - Constitutional Vitals: Temp Pulse Resp BP Pulse Ox 98.7 F 68 20 118/84 99 03/04/17 11:00 03/04/17 11:00 03/04/17 11:00 03/04/17 11:00 03/04/17 11:00 General appearance: Present: no acute distress, well-nourished Results - Labs CBC & Chem 7: 03/04/17 00:58 03/04/17 00:58 Labs: Laboratory Last Values WBC 8.3 K/mm3 (4.5-11.0) 03/04/17 00:58 RBC 2.93 M/mm3 (3.65-5.03) L 08/15/17 00:58 Hgb 9.4 gm/dl (10.1-14.3) L 03/04/17 00:58 Hct 28.3 % (30.3-42.9) L 03/04/17 00:58 MCV 97 fl (79-97) 03/04/17 00:58 MCH 32 pg (28-32) 03/04/17 00:58 MCHC 33 % (30-34) 03/04/17 00:58 RDW 17.8 % (13.2-15.2) H 03/04/17 00:58 Plt Count 132 K/mm3 (140-440) L 03/04/17 00:58 Lymph % (Auto) 24.0 % (13.4-35.0) 02/28/17 04:05 [place] % (Auto) 13.3 % (0.0-7.3) H 02/28/17 04:05 Eos % (Auto) 7.5 % (0.0-4.3) H 02/28/17 04:05 Baso % (Auto) 3.0 % (0.0-1.8) H 02/28/17 04:05 Lymph # 1.8 K/mm3 (1.2-5.4) 02/28/17 04:05 [place] # 1.0 K/mm3 (0.0-0.8) H 02/28/17 04:05 Eos # 0.6 K/mm3 (0.0-0.4) H 02/28/17 04:05 Baso # 0.2 K/mm3 (0.0-0.1) H 02/28/17 04:05 Add Manual Diff Complete 02/21/17 20:44 Total Counted 100 02/21/17 20:44 Seg Neutrophils % 52.2 % (40.0-70.0) 02/28/17 04:05 Seg Neuts % (Manual) 53.0 % (40.0-70.0) 02/21/17 20:44 Band Neutrophils % 31.0 % 02/21/17 20:44 Lymphocytes % (Manual) 9.0 % (13.4-35.0) L 02/21/17 20:44 Reactive Lymphs % (Man) 0 % 02/21/17 20:44 Monocytes % (Manual) 3.0 % (0.0-7.3) 02/21/17 20:44 Eosinophils % (Manual) 3.0 % (0.0-4.3) 02/21/17 20:44 Basophils % (Manual) 0 % (0.0-1.8) 02/21/17 20:44 Metamyelocytes % 0 % 02/21/17 20:44 Myelocytes % 0 % 02/21/17 20:44 Promyelocytes % 1.0 % 02/21/17 20:44 Blast Cells % 0 % 02/21/17 20:44 Nucleated RBC % 1.0 % (0.0-0.9) H 02/21/17 20:44 Seg Neutrophils # 3.8 K/mm3 (1.8-7.7) 02/28/17 04:05 Seg Neutrophils # Man 4.7 K/mm3 (1.8-7.7) 02/21/17 20:44 Band Neutrophils # 2.8 K/mm3 02/21/17 20:44 Lymphocytes # (Manual) 0.8 K/mm3 (1.2-5.4) L 02/21/17 20:44 Abs React Lymphs (Man) 0.0 K/mm3 02/21/17 20:44 Monocytes # (Manual) 0.3 K/mm3 (0.0-0.8) 02/21/17 20:44 Eosinophils # (Manual) 0.3 K/mm3 (0.0-0.4) 02/21/17 20:44 Basophils # (Manual) 0.0 K/mm3 (0.0-0.1) 02/21/17 20:44 Metamyelocytes # 0.0 K/mm3 02/21/17 20:44 Myelocytes # 0.0 K/mm3 02/21/17 20:44 Promyelocytes # 0.1 K/mm3 02/21/17 20:44 Blast Cells # 0.0 K/mm3 02/21/17 20:44 WBC Morphology Not Reportable 02/21/17 20:44 Hypersegmented Neuts Not Reportable 02/21/17 20:44 Hyposegmented Neuts Not Reportable 02/21/17 20:44 Hypogranular Neuts Not Reportable 02/21/17 20:44 Smudge Cells Not Reportable 02/21/17 20:44 Toxic Granulation Not Reportable 02/21/17 20:44 Toxic Vacuolation Not Reportable 02/21/17 20:44 Dohle Bodies Not Reportable 02/21/17 20:44 Pelger-Huet Anomaly Not Reportable 02/21/17 20:44 Dilma Rods Not Reportable 02/21/17 20:44 Platelet Estimate Consistent w auto 02/21/17 20:44 Clumped Platelets Not Reportable 02/21/17 20:44 Plt Clumps, EDTA Not Reportable 02/21/17 20:44 Large Platelets Not Reportable 02/21/17 20:44 Giant Platelets Not Reportable 02/21/17 20:44 Platelet Satelliting Not Reportable 02/21/17 20:44 Plt Morphology Comment Not Reportable 02/21/17 20:44 RBC Morphology Not Reportable 02/21/17 20:44 Dimorphic RBCs Not Reportable 02/21/17 20:44 Polychromasia Not Reportable 02/21/17 20:44 Hypochromasia Not Reportable 02/21/17 20:44 Poikilocytosis Not Reportable 02/21/17 20:44 Anisocytosis 1+ 02/21/17 20:44 Microcytosis Not Reportable 02/21/17 20:44 Macrocytosis Not Reportable 02/21/17 20:44 Spherocytes Not Reportable 02/21/17 20:44 Pappenheimer Bodies Not Reportable 02/21/17 20:44 Sickle Cells Not Reportable 02/21/17 20:44 Target Cells Not Reportable 02/21/17 20:44 Tear Drop Cells Not Reportable 02/21/17 20:44 Ovalocytes Not Reportable 02/21/17 20:44 Helmet Cells Not Reportable 02/21/17 20:44 [place] Bodies Not Reportable 02/21/17 20:44 [place] Rings Not Reportable 02/21/17 20:44 [place] Cells Not Reportable 02/21/17 20:44 Bite Cells Not Reportable 02/21/17 20:44 Crenated Cell Not Reportable 02/21/17 20:44 Elliptocytes 1+ 02/21/17 20:44 Acanthocytes (Spur) Not Reportable 02/21/17 20:44 Rouleaux Not Reportable 02/21/17 20:44 Hemoglobin C Crystals Not Reportable 02/21/17 20:44 Schistocytes Not Reportable 02/21/17 20:44 Malaria parasites Not Reportable 02/21/17 20:44 Salvatore Bodies Not Reportable 02/21/17 20:44 Hem Pathologist Commnt No 02/21/17 20:44 PT 13.2 Sec. (12.2-14.9) 03/01/17 09:45 INR 1.01 (0.87-1.13) 03/01/17 09:45 APTT 30.9 Sec. (24.2-36.6) 02/21/17 20:44 D-Dimer 1308.61 ng/mlDDU (0-234) H 02/21/17 20:44 Sodium 131 mmol/L (137-145) L 03/04/17 00:58 Potassium 4.8 mmol/L (3.6-5.0) 03/04/17 00:58 Chloride 91.6 mmol/L (98-107) L 03/04/17 00:58 Carbon Dioxide 26 mmol/L (22-30) 03/04/17 00:58 Anion Gap 18 mmol/L 03/04/17 00:58 BUN 18 mg/dL (7-17) H 03/04/17 00:58 Creatinine 1.4 mg/dL (0.7-1.2) H 03/04/17 00:58 Estimated GFR 36 ml/min 03/04/17 00:58 BUN/Creatinine Ratio 12.85 % 03/04/17 00:58 Glucose 99 mg/dL (65-100) 03/04/17 00:58 POC Glucose 121 (70-105) H 03/03/17 14:35 Calcium 9.3 mg/dL (8.4-10.2) 03/04/17 00:58 Total Bilirubin 0.30 mg/dL (0.1-1.2) 02/23/17 19:11 Direct Bilirubin < 0.2 mg/dL (0-0.2) 02/23/17 19:11 Indirect Bilirubin 0.1 mg/dL 02/23/17 19:11 AST 12 units/L (5-40) 02/23/17 19:11 ALT 7 units/L (7-56) 02/23/17 19:11 Alkaline Phosphatase 140 units/L (35-129) H 02/23/17 19:11 Lactate Dehydrogenase 239 units/L (91-180) H 02/23/17 19:11 Total Creatine Kinase 28 units/L (30-135) L 02/22/17 08:55 CK-MB (CK-2) 1.8 ng/mL (0.0-4.0) 02/22/17 08:55 CK-MB (CK-2) Rel Index 6.4 (0-4) H 02/22/17 08:55 Troponin T < 0.010 ng/mL (0.00-0.029) 02/22/17 08:55 NT-Pro-B Natriuret Pep 3727 pg/mL (0-900) H 02/21/17 20:44 Total Protein 6.2 g/dL (6.3-8.2) L 02/23/17 19:11 Albumin 3.5 g/dL (3.9-5) L 02/23/17 19:11 Albumin/Globulin Ratio 1.3 % 02/23/17 19:11 CA 27-29 39 U/mL (<38) H 02/24/17 01:35 CA 125 Antigen 269 U/mL (<35) H 02/24/17 01:35 Fluid Type Pleural 02/23/17 16:40 Fluid Color Yellow 02/23/17 16:40 Fluid Appearance Hazy 02/23/17 16:40 Fluid WBC 750 /mm3 02/23/17 16:40 Fluid RBC 1150 /mm3 02/23/17 16:40 Fluid Diff Comment 02/23/17 16:40 Fluid Seg Neutrophils 21.0 % 02/23/17 16:40 Fluid Lymphocytes 67.0 % 02/23/17 16:40 Fluid Reactive Lymphs 0 % 02/23/17 16:40 Fluid Monocytes 11.0 % 02/23/17 16:40 Fluid Eosinophils 1.0 % 02/23/17 16:40 Fluid Basophils 0 % 02/23/17 16:40 Fluid Glucose 95 mg/dL (40-70) H 02/23/17 16:40 Fluid Total Protein < 3.0 (15.0-45.0) L 02/23/17 16:40 Fluid LDH 128 02/23/17 16:40
[2017-03-04] MEDS: ZOCOR PO SCH (21:40)
--- NOTE | 2017-03-04 22:51 | Consultation ---
History of Present Illness - Reason for Consult Consult date: 03/04/17 - History of Present Illness Patient seen/resting in bed, VSS, afebrile. path report still pending.Labs reviewed. Past History Past Medical History: other (CHF and breast cancer) Past Surgical History: Other Social history: other (she denies alcohol or illicit substance use. She is a . Her 11 years ago after 47 years of marriage. She does not have children.) Medications and Allergies Allergies Allergy/AdvReac Type Severity Reaction Status Date / Time No Known Allergies Allergy Verified 02/22/17 02:57 Home Medications Medication Instructions Recorded Confirmed Last Taken Type Alendronate Sodium 35 mg PO 7XD 02/22/17 02/22/17 02/21/17 History Allopurinol [Zyloprim] 300 mg PO QDAY 02/22/17 02/22/17 02/21/17 History Carvedilol [Coreg] 6.25 mg PO BID 02/22/17 02/22/17 02/21/17 History Cyanocobalamin [Vitamin B-12] 1,000 mcg IM QMONTH 02/22/17 02/22/17 02/21/17 History Ferrous Gluconate [Fergon 240 MG 240 mg PO BID 02/22/17 02/22/17 02/21/17 History tab] Furosemide [Lasix TAB] 20 mg PO QDAY 02/22/17 02/22/17 02/21/17 History Ipratropium/Albuterol Sulfate 20 - 100 mcg IH QID 02/22/17 02/22/17 02/21/17 History [Combivent Respimat] Ipratropium/Albuterol Sulfate 20 - 100 mcg IH QID 02/22/17 02/22/17 02/21/17 History [Combivent Respimat] Lovastatin [Altoprev] 20 mg PO QPM 02/22/17 02/22/17 02/21/17 History Pantoprazole Sodium 40 mg PO PRN 02/22/17 02/22/17 02/21/17 History Polyethylene Glycol 600 300 tab PO DAILY 02/22/17 02/22/17 02/21/17 History Active Meds: Active Medications Acetaminophen (Tylenol) 650 mg PO Q4H PRN PRN Reason: Pain MILD(1-3)/Fever >100.5/HOYOS Last Admin: 03/03/17 10:49 Dose: 650 mg Allopurinol (Zyloprim) 300 mg PO QDAY [facility] Last Admin: 03/04/17 11:45 Dose: 300 mg Amlodipine Besylate (Norvasc) 10 mg PO QDAY [facility] Last Admin: 03/04/17 11:45 Dose: 10 mg Bisacodyl (Dulcolax) 10 mg [place] QDAY PRN PRN Reason: Constipation unrelieved by MOM Ferrous Gluconate (Fergon) 324 mg PO BID [facility] Last Admin: 03/04/17 21:40 Dose: 324 mg Hydralazine HCl (Apresoline) 10 mg IV Q4HR PRN PRN Reason: Hypertension Sodium Chloride (Nacl 0.9% 1000 Ml) 1,000 mls @ 100 mls/hr IV DIRECT [facility] Magnesium Hydroxide (Milk Of Magnesia) 30 ml PO Q4H PRN PRN Reason: Constipation Last Admin: 02/25/17 19:00 Dose: 30 ml Miscellaneous Medication (Polyethylene Glycol 600 [Polyethylene Glycol 600]) 300 tab PO DAILY [facility] Ondansetron HCl (Zofran) 4 mg IV Q8H PRN PRN Reason: N/V unrelieved by Reglan Last Admin: 03/03/17 14:40 Dose: 4 mg Pantoprazole Sodium (Protonix) 40 mg PO DAILY PRN PRN Reason: Acid reflux Last Admin: 02/24/17 14:38 Dose: 40 mg Simvastatin (Zocor) 10 mg PO QHS [facility] Last Admin: 03/04/17 21:40 Dose: 10 mg Review of Systems Constitutional: fatigue Breasts: deferred Neurological: confusion Exam - Constitutional Vitals: Temp Pulse Resp BP Pulse Ox 97.5 F L 68 18 107/55 100 03/04/17 20:58 03/04/17 20:58 03/04/17 20:58 03/04/17 20:58 03/04/17 20:58 General appearance: Present: no acute distress, well-nourished - EENT Eyes: Present: PERRL ENT: hearing intact, clear oral mucosa - Neck Neck: Present: supple, normal ROM - Respiratory Respiratory effort: normal Respiratory: bilateral: CTA - Cardiovascular Heart Sounds: Present: S1 & S2. Absent: rub, click - Extremities Extremities: pulses symmetrical, No edema Peripheral Pulses: within normal limits - Abdominal General gastrointestinal: Present: soft, non-tender, non-distended, normal bowel sounds Female genitourinary: Present: deferred - Rectal Rectal Exam: deferred - Integumentary Integumentary: Present: clear, warm, dry - Musculoskeletal Musculoskeletal: gait normal, strength equal bilaterally - Psychiatric Psychiatric: appropriate mood/affect - Neurologic Neurologic: CNII-XII intact, moves all extremities Results - Labs CBC & Chem 7: 03/04/17 00:58 03/04/17 00:58 Labs: Abnormal lab results 02/23/17 03/04/17 03/04/17 Range/Units 16:40 00:58 00:58 RBC 2.93 L (3.65-5.03) M/mm3 Hgb 9.4 L (10.1-14.3) gm/dl Hct 28.3 L (30.3-42.9) % RDW 17.8 H (13.2-15.2) % Plt Count 132 L (140-440) K/mm3 Sodium 131 L (137-145) mmol/L Chloride 91.6 L (98-107) mmol/L BUN 18 H (7-17) mg/dL Creatinine 1.4 H (0.7-1.2) mg/dL Fluid Glucose 95 H (40-70) mg/dL Fluid Total Protein < 3.0 L (15.0-45.0) Assessment and Plan - Patient Problems (1) Lymphadenopathy, thoracic Current Visit: Yes Status: Acute Plan to address problem: highly suspicious for mets from the previous left breast cancer. same as above. (2) Pleural effusion, right Current Visit: Yes Status: Acute Plan to address problem: Same as above,s/p a tap. , awaiting results. (3) Pulmonary nodules Current Visit: Yes Status: Acute Plan to address problem: monitor.
--- NOTE | 2017-03-05 04:05 | Consultation ---
CARDIOLOGY EVALUATION REASON FOR CONSULTATION: Bradyarrhythmias. HISTORY OF PRESENT ILLNESS: The patient is an 87-year-old female, seen for evaluation of bradycardia. About 3 days ago, she had episodes of bradycardia. The patient used to be on carvedilol and that has been stopped and currently the rhythm is sinus and appears to be stable. The patient does have a first-degree AV block. She denies any chest pain. She has difficulty in breathing intermittently. The patient is known to have had CA of the breast about 20 years ago. Currently, she is admitted with hemoptysis and recurrent pleural effusion that has required thoracentesis. The patient apparently has pulmonary nodules and mediastinal lymphadenopathy, liver mass as well as retroperitoneal lymphadenopathy. This is felt to be secondary to metastatic malignancy. The patient is also noted to have thrombocytopenia and renal failure. The patient is seen also by the oncologist. At present, she denies any chest pain or difficulty in breathing. The patient apparently had a vasovagal syncope after thoracentesis, which improved with IV fluids. The patient gives a history of coronary artery disease and apparently had prior myocardial infarction as well as previous cerebrovascular accident. The patient is known to have hypertension and hyperlipidemia. REVIEW OF SYSTEMS: HEAD, EYES, EARS, NOSE AND THROAT: No symptoms. ENDOCRINE: No history of diabetes. GASTROINTESTINAL: No abdominal pain, nausea, or vomiting. Bowel habits have been regular. GENITOURINARY: The patient is diagnosed to have chronic kidney disease. CENTRAL NERVOUS SYSTEM: History of cerebrovascular accident in the past. PHYSICAL EXAMINATION: GENERAL: Elderly female, in no acute distress. HEENT: Unremarkable. NECK: Supple. No thyromegaly. Both carotids are palpable and equal. Neck veins are flat. CHEST: Symmetrical. LUNGS: Bilateral reduced breath sounds noted in the bases, more so in the right base. HEART: S1 and S2 are heard well. Rate is stable. Grade 3/6 ejection systolic murmur is present. ABDOMEN: Soft, nontender. EXTREMITIES: No significant calf tenderness. LABORATORY DATA: EKG sinus rhythm, no acute abnormalities. Rhythm strips are reviewed. Three days ago, she did have periods of sinus bradycardia with what looks like blocked PACs. Chest x-ray shows borderline heart size, right basilar atelectasis and infiltrate. This was done on 03/03/2017. CT of the head shows no acute intracranial abnormalities. LABORATORY DATA: Hemoglobin 9.4, hematocrit 28.3, platelet count 132,000. Sodium 131, potassium 4.8, BUN 18, creatinine 1.4, blood sugar 99. IMPRESSION: 1. Bradyarrhythmias, transient, improved after stopping the beta blockers. 2. History of CA of breast and possible metastatic malignancy, currently being managed right now by the oncologist and tissue technologist with recurrent pleural effusions that required thoracentesis. 3. History of hypertension. 4. History of coronary artery disease and previous myocardial infarction. 5. History of cerebrovascular accident. 6. Hyperlipidemia. The patient is seen for cardiac evaluation. At present, cardiac status is satisfactory. I will obtain an echocardiogram to assess the cardiac status further. We will keep her off of beta blockers and will continue monitoring. I have discussed it with the patient's family members. Overall prognosis is guarded because of the malignancy and apparen metastatic lesions. Thank you for allowing me to participate in the care of this pleasant lady. JOB# [id number] DENNIS/CAROLINE
[2017-03-05 06:43] LABS: Hematocrit 26.8 % (30.3-42.9)
[2017-03-05 06:50] LABS: BUN/Creatinine Ratio 11.25; Calcium 8.9 mg/dL (8.4-10.2); Chloride 92.6 mmol/L (98-107); Potassium 4.6 mmol/L (3.6-5.0)
--- NOTE | 2017-03-05 08:24 | Event Note ---
Date: 03/05/17 Final path is back on pleural fluid, per their report, no malignant cells. Also based on PFA, transudative effusion. Very difficult to believe this given underlying pathology seen on CT scan. With this information, would need to obtain some other form of tissue sampling for diagnosis. This fluid rapidly reacummulated, which would be consistent with a malignant effusion but could be seen in transudates associated with, heart failure, cirrhosis and nephrotic syndrome.
--- NOTE | 2017-03-05 12:16 | Progress Note ---
Assessment and Plan Assessment: Bradyarrhythmias - improved after stopping beta blockers. Acute respiratory failure Recurrent right pleural effusion - concerning for malignancy; Final path is back on pleural fluid, per their report, no malignant cells. Vasovagal syncope - occurred after thoracentesis HTN CAD H/o CVA HLP H/o breast CA Plan: Await echo. Currently stable cardiac status. The patient has been seen in conjunction with Dr. ZAKIA Moeller who agrees with the assessment and plan of care. Subjective Date of service: 03/05/17 Principal diagnosis: Pleural effusion,pulmonary nodules, hemoptysis Interval history: Pt resting comfortably in bed, no complaints. VSS. Objective Last Vital Signs Temp 97.5 F L 03/05/17 08:00 Pulse 78 03/05/17 08:00 Resp 18 03/05/17 08:00 BP 149/63 03/05/17 08:00 Pulse Ox 99 03/05/17 10:55 - Physical Examination General: Appears Well HEENT: Positive: PERRL, Normocephaly, Mucus Membranes Moist - Labs and Meds CBC 03/05/17 Range/Units 06:03 Hgb 9.0 L (10.1-14.3) gm/dl Hct 26.8 L (30.3-42.9) % Comprehensive Metabolic Panel 03/05/17 Range/Units 06:03 Sodium 131 L (137-145) mmol/L Potassium 4.6 (3.6-5.0) mmol/L Chloride 92.6 L (98-107) mmol/L Carbon Dioxide 28 (22-30) mmol/L BUN 18 H (7-17) mg/dL Creatinine 1.6 H (0.7-1.2) mg/dL Glucose 87 (65-100) mg/dL Calcium 8.9 (8.4-10.2) mg/dL - Imaging and Cardiology EKG: image reviewed
[2017-03-05] MEDS: NORVASC PO SCH (13:29)
[2017-03-05] MEDS: ZYLOPRIM PO SCH (13:29)
[2017-03-05] MEDS: FERGON PO SCH (13:29)
[2017-03-05] MEDS: PROTONIX PO PRN (13:30)
--- NOTE | 2017-03-05 14:54 | Discharge Summary ---
Providers - Providers Date of Admission: 02/22/17 02:46 Date of discharge: 03/05/17 Attending physician: JIMI DAMON MD 02/22/17 08:14 Consult to Physician [CONS] Routine Consulting Provider: LEORA STRATTON Reason For Exam: metastatic cancer Place consult to:: onc Notified:: a service Phone number called:: [phone] Was contact made?: Yes If yes, spoke with:: almas Time called:: 08:38 02/25/17 14:52 Consult to Mental Health [CONS] Routine Reason For Exam: Dementia Place consult to:: Mental Health Notified:: Taye RN Phone number called:: [phone] Was contact made?: Yes If yes, spoke with:: [facility] Time called:: 14:52 02/27/17 14:59 Physical Therapy Evaluation and Treat [CONS] Routine Comment: Reason For Exam: placement 03/03/17 15:00 Consult to Case Management [CONS] Routine Services Needed at Discharge: Other Notified:: cm notified Additional Physician Instructions: hospice- eval and treat. 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 Multiple nodules are seen in both lungs that are suspicious for metastatic disease. Malignant appearing lymphadenopathy and possible loss are seen in the retroperitoneum and mary hepatis region. There may be a small mass in the left hepatic lobe. Procedures: Thoracentesis showed bloody pleural fluid suggestive of malignancy which returned back after thoracentesis. Hospital course: 87-year-old woman with multiple medical problems including hypertension, CHF, chronic kidney disease, osteoporosis, coronary artery disease, gout, GERD, hyperlipidemia, history of breast cancer comes emergency room today with complaints of shortness of breath 1 week. Also complaining of orthopnea. Patient states that she coughed up blood and sputum 2. Patient was admitted and CT chest was done which is suggestive of metastatic cancer as stated above. The plan was discussed with the patient and her recent disease was done and cytology showed no malignant cells. I have discussed about the result and the patient said if it is malignancy she doesn't want any chemotherapy or any other treatment. Pleural Fluid cytology is low yield for diagnosis of malignancy and I offered her CT guided biopsy, patient declined. Patient said she is not able to taking care of her at home and wants [facility] placement. Patient was discharged to [facility]. Patient's medications were revised and appropriate medications were given and discharged. Patient's and her families questions and concerns were addressed at the bedside. Disposition: DC/[place]-03 SNF [facility] CERT Time spent for discharge: 31 minutes - Discharge Diagnoses (1) Dyspnea Status: Acute Qualifiers: Dyspnea type: shortness of breath Qualified Code(s): R06.02 - Shortness of breath (2) Lymphadenopathy, thoracic Status: Acute (3) Pleural effusion, right Status: Acute (4) Pulmonary nodules Status: Acute Core Measure Documentation - Palliative Care Palliative Care/ Comfort Measures: Not Applicable - Core Measures Any of the following diagnoses?: none Exam - Physical Exam Narrative exam: Not in cardiopulmonary distress. The patient appeared well nourished and normally developed. Vital signs as documented. Head exam is unremarkable. No scleral icterus . Neck is without jugular venous distension, thyromegaly, or carotid bruits. Lungs are clear to auscultation. Cardiac exam reveals regular rate and Rhythm. First and second heart sounds normal. No murmurs, rubs or gallops. Abdominal exam reveals normal bowel sounds, no masses, no organomegaly and no aortic enlargement. Extremities are nonedematous and both femoral and pedal pulses are normal. 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 No focal weakness. - Constitutional Vitals: Temp Pulse Resp BP Pulse Ox 97.5 F L 72 18 110/58 99 03/05/17 12:00 03/05/17 12:00 03/05/17 12:00 03/05/17 12:03/05/17 12:00 Plan Activity: fall precautions Weight Bearing Status: Weight Bear as Tolerated Diet: low cholesterol Follow up with: PRIMARY CARE, [Primary Care Provider] - 3-5 Days
[2017-03-05 17:40] VITALS: BP 124/63
--- NOTE | 2017-03-10 10:30 | Query- General ---
Dear Bhavani Date:___03/10/17 [employer] Director [employer]/CDS:___Abimael / Nathan Phone#:___[phone] Exercise your independent professional judgment when responding to this query. Questions asked do not imply a particular answer is desired or expected. We greatly appreciate your clarification on this issue. Clinical Documentation States: 87 year old female was admitted on 02/22/17. The Progress note (Dr. Beckham 03/04/17) states " Acute respiratory failure, POA - due to pleural effusion Right pleural effusion. - Thoracentesis was done yesterday and 100ml of blood tinged sputum was sent to lab Multiple pulmonary nodules bilaterally, suspicious for metastases. - awaiting path report from pleural fluid. Dr. Buck following. History of breast cancer. - suspicion of recurrence, wait for pathology report " The discharge summary (Dr. Beckham) states " 87-year-old woman with multiple medical problems, complaints of shortness of breath 1 week. Patient states that she coughed up blood and sputum 2. Moderate right pleural effusion, central obstructing malignancy may be present. Multiple nodules are seen in both lungs that are suspicious for metastatic disease. Procedures: Thoracentesis showed bloody pleural fluid suggestive of malignancy which returned back after thoracentesis. CT chest was done which is suggestive of metastatic cancer cytology showed no malignant cells " Given the above clinical scenario can you please provide an appropriate diagnosis based on your knowledge of the patient: Please clarify the possible etiology of pleural effusion PHYSICIAN RESPONSE: Possible etiology of pleural effusion: __cancer __ Present on Admission: [x] Yes (Y) [ ] Clinically undeterminable (W) [ ]No(N) Please also document response in your Progress Notes and/or Discharge Summary and indicate if the condition was present on admission. MTDD
== END 2017-03-05 19:20 | DRG 180 ==
LOC: ED 19:10 → 4A 02-22 02:46
PROVIDERS: ADMIT Internal Medicine; ATTEND Internal Medicine
PROC: 0W993ZX Drainage of Right Pleural Cavity, Percutaneous Approach, Diagnostic (ICD-10-PCS; 2017-02-23)
PROC: 0W993ZZ Drainage of Right Pleural Cavity, Percutaneous Approach (ICD-10-PCS; principal; 2017-03-03)
DX: C34.92 Malignant neoplasm of unspecified part of left bronchus or lung (principal); J96.00 Acute respiratory failure, unspecified whether with hypoxia or hypercapnia; J90 Pleural effusion, not elsewhere classified; I13.0 Hypertensive heart and chronic kidney disease with heart failure and stage 1 through stage 4 chronic kidney disease, or unspecified chronic kidney disease; N17.9 Acute kidney failure, unspecified; C34.91 Malignant neoplasm of unspecified part of right bronchus or lung; I50.9 Heart failure, unspecified; E78.5 Hyperlipidemia, unspecified; M81.0 Age-related osteoporosis without current pathological fracture; I71.4 Abdominal aortic aneurysm, without rupture; F41.9 Anxiety disorder, unspecified; I25.10 Atherosclerotic heart disease of native coronary artery without angina pectoris; M10.9 Gout, unspecified; K21.9 Gastro-esophageal reflux disease without esophagitis; F03.90 Unspecified dementia, unspecified severity, without behavioral disturbance, psychotic disturbance, mood disturbance, and anxiety; N18.3 Chronic kidney disease, stage 3 (moderate); R04.0 Epistaxis; D69.6 Thrombocytopenia, unspecified; I44.0 Atrioventricular block, first degree; Z82.49 Family history of ischemic heart disease and other diseases of the circulatory system; Z87.891 Personal history of nicotine dependence; Z85.3 Personal history of malignant neoplasm of breast
CPT/HCPCS: 32555; 36415; 70450; 71010; 71020; 71250; 74176; 78582; 80048; 80074; 82550; 82553; 82565; 82947; 82962; 83605; 83615; 83880; 84160; 84484; 84520; 85007; 85014; 85018; 85025; 85027; 85379; 85610; 85730; 86300; 86304; 87102; 87205; 87220; 88112; 88305; 88341; 88342; 89051; 93005; 93010; 93306; 94640; 94760; A9540; A9558; G8978-GP; G8979-GP; G8980-GP; J1644; J2405; J7030

== ENCOUNTER 2017-04-17 08:10 | Day surgery (SDC) | payer MEDICARE ==
[2017-04-17 10:05] LABS: INR 1.03 (0.87-1.13)
[2017-04-17 10:06] LABS: Partial Thromboplastin Time 30.5 Sec. (24.2-36.6)
--- NOTE | 2017-04-17 11:59 | Ultrasound Report ---
ULTRASOUND THORACENTESIS HISTORY: Right pleural effusion. DESCRIPTION OF PROCEDURE: Informed consent was obtained from a family member. Sterile technique was utilized. 1% lidocaine for skin anesthesia. Using ultrasound guidance, a 5 Faroese centesis needle was advanced into the right pleural space. There was spontaneous return of clear yellow fluid. 1220 cc of fluid was aspirated. 120 cc of fluid was sent to the lab for analysis. No complications. A followup chest x-ray was ordered prior to discharge. IMPRESSION: Successful ultrasound-guided right thoracentesis.
--- NOTE | 2017-04-17 12:03 | Short Stay Summary ---
Short Stay Documentation Date of service: 04/17/17 - History Principal diagnosis: right pleural effusion - Allergies and Medications Current Medications: Allergies No Known Allergies Allergy (Verified 02/22/17 02:57) Home Medications Medication Instructions Recorded Confirmed Last Taken Type Allopurinol [Zyloprim] 300 mg PO QDAY 02/22/17 04/17/17 04/16/17 History 300mg Ferrous Gluconate [Fergon 240 MG 240 mg PO BID 02/22/17 04/17/17 04/16/17 History tab] 240mg Furosemide [Lasix TAB] 20 mg PO QDAY 02/22/17 04/17/17 04/16/17 History 20mg Ipratropium/Albuterol Sulfate 20 - 100 mcg IH QID 02/22/17 04/17/17 04/16/17 History [Combivent Respimat] unit dose Lovastatin [Altoprev] 20 mg PO QPM 02/22/17 04/17/17 04/16/17 History 20mg Pantoprazole Sodium 40 mg PO PRN 02/22/17 04/17/17 04/16/17 History 40mg Docusate Sodium [Colace CAP] 100 mg PO BID 04/17/17 04/17/17 04/16/17 History 100mg Furosemide [Lasix TAB] 20 mg PO DAILY 04/17/17 04/17/17 04/16/17 History 20mg Remeron 15 mg PO HS 04/17/17 04/17/17 04/16/17 History 15mg - Physical exam General appearance: no acute distress Lungs: Clear to auscultation Heart: Regular rate - Brief post op/procedure progress note Date of procedure: 04/17/17 Pre-op diagnosis: right pleural effusion Post-op diagnosis: same Procedure: US thoracentesis, right Anesthesia: local Surgeon: MACKENZIE TOLEDO Estimated blood loss: none Pathology: list (120cc) Specimen disposition: to lab Condition: stable - Disposition Condition at discharge: Good Disposition: DC-01 TO HOME OR SELFCARE Short Stay Discharge Plan Follow up with: PRIMARY CARE, [Primary Care Provider] - 7 Days
--- NOTE | 2017-04-17 13:11 | XRay Report ---
AP CHEST: HISTORY: Shortness of breath, recent thoracentesis Recent right thoracentesis was performed. Complete or near complete evacuation of the right pleural fluid is demonstrated. Mild cardiomegaly and pulmonary venous congestion are also noted. No evidence for pneumothorax. IMPRESSION: No pneumothorax. Complete evacuation of the right pleural fluid.
[2017-04-17 13:31] VITALS: BP 142/69
[2017-04-19 23:15] LABS: LDH,Body Fluid 147; Triglycerides,Body Fluid 17
== END 2017-04-17 13:50 | disposition home or self-care (01) ==
LOC: CATHLABREC 08:10 → EDSTATUS 09:00 → CATHLABREC 13:50
PROVIDERS: ATTEND Internal Medicine Critical Care Medicine
DX: J90 Pleural effusion, not elsewhere classified (principal); Z79.899 Other long term (current) drug therapy
CPT/HCPCS: 32555; 36415; 71010; 83605; 84478; 85610; 85730; 87116; 88112; 88305

== ENCOUNTER 2017-04-24 13:13 | Outpatient (CLI) | payer MEDICARE | END 2017-04-24 13:14 | disposition home or self-care (01) | LOC: PET 13:13 → EDSTATUS 14:30 | PROVIDERS: ATTEND Internal Medicine Critical Care Medicine | DX: J94.8 Other specified pleural conditions (principal); R91.1 Solitary pulmonary nodule; Z79.899 Other long term (current) drug therapy | CPT/HCPCS: 82962 ==

== ENCOUNTER 2017-05-01 07:28 | Outpatient (CLI) | payer MEDICARE ==
--- NOTE | 2017-05-01 13:44 | PET Report ---
PET SB TO MT SUBSEQUENT: HISTORY: Solitary pulmonary nodule, left breast cancer. TECHNIQUE: 13.8 millicuries F-18 FDG was administered intravenously. Noncontrast CT images and PET images were obtained from the skull base to the proximal thighs. Fused images were reviewed on a workstation. The patient's blood glucose level measured 113. COMPARISON: No previous PET/CT at this facility. Correlation is made with the noncontrast CT chest abdomen and pelvis performed 02/21/17 and 02/22/17. FINDINGS: BRAIN: physiologic FDG uptake in the imaged brain. NECK: There are small lymph nodes measuring less than 1 cm in both jugular chains which demonstrate mild hypermetabolic activity. Max SUV measures 3.1 on the right and 3.0 on the left. MEDIASTINUM: There are multiple enlarged lymph nodes throughout the mediastinum demonstrating hypermetabolic activity. Right hilar lymph nodes demonstrate a max SUV of 8.9. Left hilar lymph nodes demonstrate a max SUV of 6.5. A subcarinal lymph node demonstrates a max SUV of 6.3. LUNGS: Moderate left pleural effusion and large right pleural effusion are identified which compress significant areas of the lungs. Bilateral pulmonary nodules are identified in the aerated portions of the lungs. There are at least 4 nodules in the left upper lobe with the largest measuring 1 cm. Max SUV measures 2.7. There is focal uptake within the collapsed right lower lobe with max SUV measuring 3.4. PLEURA/PERICARDIUM: physiologic FDG uptake. HEPATOBILIARY: There are multiple hypermetabolic liver masses ranging from 1-3 cm in diameter. Uptake within the liver masses ranges from 4.8-9.9. PANCREAS: physiologic FDG uptake. SPLEEN: physiologic FDG uptake. ADRENAL GLANDS: physiologic FDG uptake. KIDNEYS/RENAL COLLECTING SYSTEMS: physiologic FDG uptake. BOWEL/MESENTERY: Physiologic FDG uptake. PELVIC VISCERA: physiologic FDG uptake. ABDOMINAL/PELVIC LYMPH NODES: There are numerous borderline to mildly enlarged mesenteric lymph nodes with max SUV measuring up to 6.7. Coalescent lymph nodes are identified near the mary hepatis with max SUV measuring up to 9.8. MUSCULOSKELETAL: Multiple bony metastasis are identified including the spine, bilateral ribs and pelvis. For instance, the uptake at T3 measures 8.2. Uptake at L5 measures 7.8. IMPRESSION: A metastatic process is identified. There are numerous areas of abnormal hypermetabolic uptake in the lungs, cervical lymph nodes, mediastinal lymph nodes, abdominal lymph nodes, liver and osseous structures. This is presumably secondary to breast cancer as noted in the patient's clinical history.
== END 2017-05-01 07:29 | disposition home or self-care (01) ==
LOC: PET 07:28
PROVIDERS: ATTEND Internal Medicine Critical Care Medicine
DX: C79.51 Secondary malignant neoplasm of bone (principal); C79.89 Secondary malignant neoplasm of other specified sites; J94.8 Other specified pleural conditions; J90 Pleural effusion, not elsewhere classified; R91.8 Other nonspecific abnormal finding of lung field; K76.89 Other specified diseases of liver; R59.9 Enlarged lymph nodes, unspecified
CPT/HCPCS: 78815; 82962; A9552